=== PATIENT | female | born 1955 | race Caucasian/White ===

== ENCOUNTER → 2018-11-15 07:59 | Outpatient (CLI) | payer BC, SELFPAY ==
[2018-11-15 09:34] LABS: Alanine Aminotransferase 31 IU/L (9-52); Albumin 4.1 g/dL (3.5-5.0); Albumin Globulin Ratio 1.5 (1.0-2.8); Alkaline Phosphatase 110 U/L (38-126); Aspartate Aminotransferase 29 IU/L (14-36); BUN Creatinine Ratio 18.6 (6-22); Bilirubin Total 0.5 mg/dL (0.2-1.3); Blood Urea Nitrogen 13 mg/dL (7-17); Calcium 9.3 mg/dL (8.4-10.2); Carbon Dioxide 28 mmol/L (22-32); Chloride 103 mmol/L (98-107); Cholesterol 164 mg/dL (140-199); Estimated Glomerular Filt Rate > 60.0 mL/min (>60); Globulin 2.7 g/dL (1.7-4.1); Glucose 101 mg/dL (80-110); HEMOLYSIS < 15 (0-50); Potassium 4.2 mmol/L (3.4-5.1); Sodium 139 mmol/L (137-145); Total Protein 6.8 g/dL (6.3-8.2); Triglycerides 36 mg/dL (35-150)
[2018-11-15 09:45] LABS: HDL Cholesterol 128 mg/dL (40-60); LDL Cholesterol Calculated 29 mg/dL (<100)
[2018-11-15 09:50] LABS: Free T3, Triiodothyronine Free 4.51 pg/mL (2.77-5.27)
[2018-11-15 10:03] LABS: Thyroid Stimulating Hormone 1.75 uIU/mL (0.47-4.68)
[2018-11-15 10:09] LABS: Ferritin 37.2 ng/mL (11.1-264)
[2018-11-17 16:11] LABS: Thyroid Peroxidase Antibodies < 1 IU/mL (< 9)
== END ==
PROVIDERS: PCP Naturopath; Visit Provider Naturopath
DX: Z00.00 Encounter for general adult medical examination without abnormal findings (principal); M81.0 Age-related osteoporosis without current pathological fracture; R53.83 Other fatigue
CPT/HCPCS: 36415; 80053; 80061; 82728; 84439; 84443; 84481; 86376

== ENCOUNTER → 2019-11-27 06:51 | Outpatient (CLI) | payer MEDICARE, SELFPAY ==
[2019-11-27 07:40] LABS: Add Manual Diff / Slide Review NO; Basophils Absolute Auto 100 /uL (0-100); Basophils Percent Auto 1.3 % (0-2); Eosinophils Absolute Auto 100 /uL (0-450); Eosinophils Percent Auto 3.1 % (2-4); Hematocrit 41.1 % (36-46); Lymphocytes Absolute Auto 1300 /uL (1100-4500); Lymphocytes Percent Auto 29.7 % (25-40); Mean Corpuscular Hemoglobin 30.7 PG (26-34); Mean Corpuscular Volume 90.3 fL (80-100); Monocytes Absolute Auto 300 /uL (0-900); Monocytes Percent Auto 7.4 % (3-14); Neutrophils Absolute Auto 2500 /uL (1500-7000); Neutrophils Percent Auto 58.5 % (50-75); Platelet Count 238 X10^3/uL (150-400); Red Blood Cell Count 4.55 X10^6/uL (4.0-5.2); Red Cell Distribution Width 13.5 % (11.6-14.8); White Blood Cell Count 4.3 X10^3/uL (4.5-11.0)
[2019-11-27 07:46] LABS: Hemoglobin A1C% w Est Avg Glu 5.4 % (4.0-6.0)
[2019-11-27 07:49] LABS: Alanine Aminotransferase 22 IU/L (<35); Albumin 4.3 g/dL (3.5-5.0); Albumin Globulin Ratio 1.5 (1.0-2.8); Alkaline Phosphatase 92 U/L (38-126); Aspartate Aminotransferase 28 IU/L (14-36); BUN Creatinine Ratio 22.4 (6-22); Bilirubin Total 0.8 mg/dL (0.2-1.3); Blood Urea Nitrogen 13 mg/dL (7-17); Calcium 9.4 mg/dL (8.4-10.2); Carbon Dioxide 27 mmol/L (22-32); Chloride 105 mmol/L (98-107); Cholesterol 154 mg/dL (140-199); Estimated Glomerular Filt Rate > 60.0 mL/min (>60); Globulin 2.9 g/dL (1.7-4.1); Glucose 109 mg/dL (80-110); HEMOLYSIS < 15 (0-50); Potassium 4.5 mmol/L (3.4-5.1); Sodium 138 mmol/L (137-145); Total Protein 7.2 g/dL (6.3-8.2); Triglycerides 52 mg/dL (35-150)
[2019-11-27 07:56] LABS: HDL Cholesterol 110 mg/dL (40-60); LDL Cholesterol Calculated 34 mg/dL (<100)
[2019-11-27 08:19] LABS: TSH w/ Reflex to FT4 1.72 uIU/mL (0.47-4.68)
== END ==
PROVIDERS: PCP Registered Nurse Diabetes Educator; Referring Provider Internal Medicine Cardiovascular Disease; Visit Provider Internal Medicine Cardiovascular Disease
DX: R03.0 Elevated blood-pressure reading, without diagnosis of hypertension (principal); R07.89 Other chest pain; R00.2 Palpitations; Z79.899 Other long term (current) drug therapy
CPT/HCPCS: 36415; 80053; 80061; 83036; 84443; 85025

== ENCOUNTER → 2019-12-26 10:57 | Outpatient (CLI) | payer MEDICARE, SELFPAY ==
[2019-12-27 13:36] LABS: Fecal Immunochemical Test Negative (Negative)
[2020-12-21 06:39] LABS: H. Pylori Antigen Stool Negative (Negative)
== END ==
PROVIDERS: PCP Registered Nurse Diabetes Educator; Referring Provider Registered Nurse Diabetes Educator; Visit Provider Registered Nurse Diabetes Educator
DX: R00.2 Palpitations (principal)
CPT/HCPCS: 82274; 87338

== ENCOUNTER → 2020-01-09 10:12 | Outpatient (CLI) | payer MEDICARE, SELFPAY | PROVIDERS: PCP Registered Nurse Diabetes Educator; Referring Provider Registered Nurse Diabetes Educator; Visit Provider Registered Nurse Diabetes Educator | DX: M81.0 Age-related osteoporosis without current pathological fracture (principal); Z78.0 Asymptomatic menopausal state | CPT/HCPCS: 77080 ==

== ENCOUNTER → 2020-12-08 08:14 | Outpatient (CLI) | payer MEDICARE, SELFPAY ==
--- NOTE | 2020-12-08 08:15 | DI.US.S_ITS ---
PROCEDURE: US ABDOMEN COMPLETE INDICATIONS: EPIGASTRIC PAIN; POSSIBLE HERNIA TECHNIQUE: Real-time scanning was performed of the abdominal and retroperitoneal organs, with image documentation. COMPARISON: None. FINDINGS: Liver: Liver is normal in size and homogeneous in echotexture. Gallbladder: No findings of gallstones or sludge are seen. The gallbladder wall is not thickened, measuring 3 mm or less. No specific pericholecystic fluid is seen. The sonographic Rodriguez sign is negative. Biliary ducts: Intrahepatic bile ducts are non-dilated. Extrahepatic bile duct caliber measures 2-3 mm. Normal is 6-7 mm or less in diameter, or 10 mm or less post-cholecystectomy. Pancreas: Visualized portions of the pancreas are sonographically normal. Spleen: Spleen is normal in size and homogeneous in echotexture. Kidneys: Kidneys are normal in size and echotexture. Right kidney measures 10.2 cm long; left kidney measures 10.5 cm long. No hydronephrosis or nephrolithiasis. No solid masses. Aorta: Visualized aorta is normal in caliber at less than 3 cm. Iliacs: Proximal common iliac arteries are normal in caliber at less than 2.5 cm. IVC: Intrahepatic inferior vena cava is patent. Miscellaneous: No free abdominal fluid. In this patient with this given history, scrutiny is given to the epigastric region. No findings of hernia can be seen within this region. IMPRESSION: Negative for epigastric hernia. Normal ultrasound. Dictated by: Jose Tabares M.D. on 12/08/2020 at 8:19 Approved by: Jose Tabares M.D. on 12/08/2020 at 8:20
[2020-12-08 10:17] LABS: Hematocrit 42.1 % (36-46); Mean Corpuscular HGB Conc 33.2 % (30-36); Mean Corpuscular Hemoglobin 30.1 PG (26-34); Mean Corpuscular Volume 90.9 fL (80-100); Platelet Count 243 X10^3/uL (150-400); Red Blood Cell Count 4.63 X10^6/uL (4.0-5.2); Red Cell Distribution Width 13.4 % (11.6-14.8); White Blood Cell Count 4.9 X10^3/uL (4.5-11.0)
[2020-12-08 11:18] LABS: Alanine Aminotransferase 23 IU/L (<35); Albumin 4.3 g/dL (3.5-5.0); Albumin Globulin Ratio 1.5 (1.0-2.8); Alkaline Phosphatase 104 U/L (38-126); Aspartate Aminotransferase 25 IU/L (14-36); BUN Creatinine Ratio 23.1 (6-22); Bilirubin Total 0.6 mg/dL (0.2-1.3); Blood Urea Nitrogen 12 mg/dL (7-17); Calcium 9.5 mg/dL (8.4-10.2); Carbon Dioxide 28 mmol/L (22-32); Chloride 107 mmol/L (98-107); Estimated Glomerular Filt Rate > 60.0 mL/min (>60); Globulin 2.8 g/dL (1.7-4.1); Glucose 107 mg/dL (80-110); HEMOLYSIS 22 (0-50); Lipase 201 U/L (23-300); Potassium 4.4 mmol/L (3.4-5.1); Sodium 141 mmol/L (137-145); Total Protein 7.1 g/dL (6.3-8.2)
[2020-12-08 12:12] LABS: TSH w/ Reflex to FT4 1.28 uIU/mL (0.47-4.68)
== END ==
PROVIDERS: PCP Registered Nurse Diabetes Educator; Referring Provider Registered Nurse Diabetes Educator; Visit Provider Registered Nurse Diabetes Educator
DX: K21.9 Gastro-esophageal reflux disease without esophagitis (principal); R10.13 Epigastric pain; R14.2 Eructation; R03.0 Elevated blood-pressure reading, without diagnosis of hypertension; R73.01 Impaired fasting glucose
CPT/HCPCS: 36415; 76700; 80053; 83690; 84443; 85027

== ENCOUNTER → 2021-03-16 08:41 | Outpatient (CLI) | payer MEDICARE, SELFPAY ==
[2021-03-17 09:36] LABS: Fecal Immunochemical Test Negative (Negative)
== END ==
PROVIDERS: PCP Registered Nurse Diabetes Educator; Referring Provider Registered Nurse Diabetes Educator; Visit Provider Registered Nurse Diabetes Educator
DX: Z12.11 Encounter for screening for malignant neoplasm of colon (principal); Z12.12 Encounter for screening for malignant neoplasm of rectum
CPT/HCPCS: 82274

== ENCOUNTER → 2021-04-13 10:04 | Outpatient (CLI) | payer MEDICARE, SELFPAY ==
--- NOTE | 2021-04-13 | DI.MG.S_ITS ---
BILATERAL DIGITAL SCREENING MAMMOGRAM 3D/2D WITH CAD: 04/13/2021 CLINICAL: Family history of breast cancer. Routine screening. Comparison is made to exams dated: 12/21/2016 mammogram - [facility] and 02/09/2010 mammogram - [facility] The tissue of both breasts is extremely dense, which lowers the sensitivity of mammography. Current study was also evaluated with a Computer Aided Detection (CAD) system. No significant masses, calcifications, or other findings are seen in either breast. There has been no significant interval change. IMPRESSION: NEGATIVE There is no mammographic evidence of malignancy. A 1 year screening mammogram is recommended. This exam was interpreted at Station ID: [id number]. NOTE: For mammograms, a report in lay terms will be sent to the patient. Approximately 15% of breast malignancies will not be visualized mammographically. In the management of a palpable breast mass, a negative mammogram must not discourage biopsy of a clinically suspicious lesion. Electronically Signed By: Kem hammer/josefa:04/13/2021 11:19:20 letter sent: Normal Exam ACR BI-RADS Category 1: Negative 3341F
== END ==
PROVIDERS: PCP Registered Nurse Diabetes Educator; Referring Provider Registered Nurse Diabetes Educator; Visit Provider Registered Nurse Diabetes Educator
DX: Z12.31 Encounter for screening mammogram for malignant neoplasm of breast (principal); Z80.3 Family history of malignant neoplasm of breast
CPT/HCPCS: 77063; 77067

== ENCOUNTER → 2021-06-15 16:08 | Outpatient (CLI) | payer MEDICARE, SELFPAY ==
--- NOTE | 2021-06-15 | DI.ECHO.S_ITS ---
[facility] +---------+ : : [address] : [place] [address] : : : : [id number] : : : : Phone: [phone] Echocardiogram Report + + :Name: LARRY OLVERA Study Date: 06/15/2021 Height: 64 in : :[facility] ReadingLocation: Weight: 108 lb : : Gender: Female BSA: 1.5 m2 : :: 1955 Age: 65 yrs BP: 157/84 mmHg: :Reason For Study: AORTIC INSUFFICIENCY : :Ordering Physician: KIMBERLY, : :MAXX Performed By: Radha Begum : :Referring: MAXX MCCLOUD : + + Interpretation Summary The left ventricle is normal in size and wall thickness. Left ventricular systolic function appears normal without focal wall motion abnormalities. The ejection fraction is estimated to be 55-60%. Diastolic parameters suggest probable normal left ventricular diastolic function and normal filling pressures. The right ventricle is normal in size and function. The right ventricular systolic pressure is estimated to be at least 32 mmHg based on an estimated right atrial pressure of 3 mm Hg. The left atrial size is normal Right atrial size is normal. There is mild mitral regurgitation. There is mild to moderate aortic regurgitation. There is mild to moderate tricuspid regurgitation. The aortic root is normal size. Procedure: A two-dimensional transthoracic echocardiogram with color flow and Doppler was performed. The study quality was technically adequate. There is no prior echocardiogram noted for this patient. The patient was in sinus rhythm with heart rates between 76-80 bpm during the exam. Left Ventricle: The left ventricle is normal in size and wall thickness. Left ventricular systolic function appears normal without focal wall motion abnormalities. The ejection fraction is estimated to be 55-60%. Diastolic parameters suggest probable normal left ventricular diastolic function and normal filling pressures. Right Ventricle: The right ventricle is normal in size and function. Atria: The left atrial size is normal. Right atrial size is normal. There is no Doppler evidence for an interatrial shunt. Mitral Valve: The mitral valve is normal in structure and function. There is mild mitral regurgitation. Aortic Valve: The aortic valve is trileaflet. The aortic valve opens well. There is no aortic valve stenosis. There is mild to moderate aortic regurgitation. Tricuspid Valve: The tricuspid valve is normal in structure and function. There is mild to moderate tricuspid regurgitation. The right ventricular systolic pressure is estimated to be at least 32 mmHg based on an estimated right atrial pressure of 3 mm Hg. Pulmonic Valve: The pulmonic valve is not well seen, but is grossly normal. There is trace pulmonic regurgitation. Great Vessels: The aortic root is normal size. The ascending aorta could not be visualized. The IVC is of normal diameter and collapses greater than 50% with a sniff. This suggests a low right atrial pressure of 3 mm Hg. Pericardium/ Pleura There is no pericardial effusion. There is no pleural effusion. MMode/2D Measurements & Calculations LVIDd: 3.7 cm LVOT diam: 2.0 cm LVIDs: 2.6 cm Ao Arch Diam (Prox Trans): 2.1 cm FS: 31.0 % IVSd: 0.59 cm LVPWd: 0.73 cm LV izaguirre. diameter/BSA (cm/m^2): 2.5 LV sys. diameter/BSA (cm/m^2): 1.7 LA A2 area: 16.5 cm2 RA area: 9.1 cm2 LA A4 area: 12.7 cm2 IVC diam: 1.1 cm LA length (vol): 3.9 cm LA vol: 45.1 ml LA vol index: 29.9 ml/m2 RVD1 (basal): 2.9 cm TAPSE: 2.2 cm Doppler Measurements & Calculations Ao V2 max: 133.2 cm/sec LVOT Max Calvin: 94.9 cm/sec Ao V2 mean: 89.7 cm/sec LV V1 max P.6 mmHg Ao max P.1 mmHg LV V1 VTI: 21.3 cm Ao mean P.6 mmHg DAMIÁN(I,D): 2.2 cm2 Ao V2 VTI: 29.7 cm DAMIÁN(V,D): 2.2 cm2 sev ratio: 0.72 DAMIÁN indexed to BSA (cm^2/m^2): 1.5 AI P1/2t: 476.5 msec AI dec slope: 302.0 cm/sec2 MV E max calvin: 94.7 cm/sec TR max calvin: 270.7 cm/sec MV A max calvin: 96.1 cm/sec TR max P.3 mmHg MV E/A: 0.99 PA V2 max: 111.2 cm/sec Med Peak E' Calvin: 7.0 cm/sec PA V2 mean: 76.8 cm/sec E/E' med: 13.4 PA mean P.6 mmHg Lat Peak E' Calvin: 7.8 cm/sec PA pr(Accel): 12.2 mmHg E/E' lat: 12.1 E/e' average: 12.8 MV dec time: 0.23 sec SV(OT): 66.6 ml Reading Physician:07:12 AM
== END ==
PROVIDERS: PCP Registered Nurse Diabetes Educator; Referring Provider Internal Medicine Cardiovascular Disease; Visit Provider Internal Medicine Cardiovascular Disease
DX: I08.3 Combined rheumatic disorders of mitral, aortic and tricuspid valves (principal)
CPT/HCPCS: 93306

== ENCOUNTER 2022-02-04 09:48 | Emergency (ER) | payer MEDICARE, SELFPAY ==
[2022-02-04 10:08] VITALS: BP 177/84; PULSE 89; RESP 14; TEMP 36.7; O2SAT 98; BMI 18.3
--- NOTE | 2022-02-04 12:38 | ED_ITS ---
HPI - Skin/Abscess/Foreign Bdy <Yasir Raines PA-C - Last Filed: 02/04/22 20:12> General Chief complaint: Skin/Abscess/Foreign Body Stated complaint: Lump on right breast Time Seen by Provider: 02/04/22 12:05 Source: patient Mode of arrival: Ambulatory Limitations: no limitations History of Present Illness HPI narrative: Patient is 66-year-old female who presents to the emergency room today with complaint of right breast lump that she noticed last night. States her last mammogram was about a year ago in April and that she is not noticed this lump before. This breast are very small and she does palpate for labs routinely and has not noticed this lump until last night. States the lump is not painful to touch and there is no abnormal drainage from the breast. Patient reported to the walk-in clinic today to have this checked acutely because she is scheduled to travel to [facility] tomorrow. Past plan to see her dough mixer robot provider when she returns home want to rule out anything emergent before she travels of the country. Taken no hormone replacement medications at this time and has been in menopause for about 14 years. Denies any other concerns. Related Data Home Medications Medication Instructions Recorded Confirmed brinzolamide 1 %-brimonidine 0.2 % 1 drop EYE-BOTH BID 11/14/19 02/04/22 eye drops,suspension (Simbrinza) travoprost 0.004 % eye drops EYE-BOTH ##0 12/03/20 02/04/22 (Travatan Z) Allergies Allergy/AdvReac Type Severity Reaction Status Date / Time No Known Drug Allergies Allergy Verified 02/04/22 10:08 Review of Systems <Yasir Raines PA-C - Last Filed: 02/04/22 20:12> Review of Systems Narrative: R.O.S.: General: No fever, chills or fatigue. Cardiovascular: No chest pain or palpitations Respiratory: No S.O.B. HEENT: No congestion, ear pain, rhinorrhea, sore throat or tinnitus Gastrointestinal: No nausea or vomiting Skin: Lump to right breast Musculoskeletal: No pain in muscles or joints, no limitation of range of motion, no paresthesia or numbness. ?? Neurological: Awake, alert and in not apparent distress. No Headaches, changes in vision or other related neurological concerns. Patient History <Yasir Raines PA-C - Last Filed: 02/04/22 20:12> Medical History Chicken pox (~1958) Glaucoma (~2004) Impaired fasting blood sugar Intermittent palpitations Kidney stones (~1996) Nonrheumatic aortic (valve) insufficiency Osteoporosis (~2005) Scoliosis Family History Father Stroke Mother Cancer Sister Hypertension Grandfather History of heart disease Social History Smoking Status: Never smoker second hand exposure: Yes ( CHILD) alcohol intake: current substance use type: does not use Smoking Status: Never smoker alcohol intake frequency: 0-2 drinks per day Substance Use Type: does not use Exam <Yasir Raines PA-C - Last Filed: 02/04/22 20:12> Narrative Exam Narrative: Physical Exam: ? General: normal appearance, well developed, well nourished, alert, and awake. Not in acute distress. ? Head: Normocephalic, no lesions. Chest: Lungs CTAB, no rales, rhonchi or wheezes. ?? Heart: RRR, no murmurs, rubs or gallops. Eyes: PERRLA, EOM's full, conjunctivae clear. ? Neuro: Physiological, no localizing findings, CN3-12 intact. ?? Extremities: Warm, well perfused, FROM, no deformities, no edema. ?? Skin/Right Breast: Patient has a palpable freely movable solid mass to the right breast mass is located medial of the right nipple in the lower to mid breast area. The mass is nontender to palpation the area is nonerythematous and without swelling or drainage. The actual size of the breast is symmetrical to the left breast. PSYCHIATRIC: The mood is good, no blunted affect. Speech is clear. Thought process is linear, thought content is appropriate. The voice is without significant inflection. Gastrointestinal: Soft; NT; ND; Pos BS with Neg. rebound tenderness. No scars or major deformities noted on Visual Inspection. Initial Vital Signs Initial Vital Signs: Vital Signs Temperature 98.1 F 02/04/22 10:08 Pulse Rate 89 02/04/22 10:08 Respiratory Rate 14 02/04/22 10:08 Blood Pressure 177/84 H 02/04/22 10:08 Pulse Oximetry 98 02/04/22 10:08 Oxygen Delivery Method 02/04/22 10:08 <DO Livier Avitia Last Filed: 02/05/22 13:28> Initial Vital Signs Initial Vital Signs: Vital Signs Temperature 98.1 F 02/04/22 10:08 Pulse Rate 89 02/04/22 10:08 Respiratory Rate 14 02/04/22 10:08 Blood Pressure 177/84 H 02/04/22 10:08 Pulse Oximetry 98 02/04/22 10:08 Oxygen Delivery Method 02/04/22 10:08 Course <Yasir Raines PA-C - Last Filed: 02/04/22 20:12> Orders Ordered: ED Orders 02/04/22 12:42 US breast RT limited Stat Vital Signs Vital signs: Vital Signs - 8 hr 02/04/22 14:43 Pulse Rate 66 Respiratory Rate 12 Blood Pressure 136/78 Pulse Oximetry 98 Oxygen Delivery Method Room Air <DO Livier Avitia Last Filed: 02/05/22 13:28> Orders Ordered: ED Orders 02/04/22 12:42 US breast RT limited Stat Vital Signs Vital signs: Vital Signs - 8 hr 02/04/22 14:43 Pulse Rate 66 Respiratory Rate 12 Blood Pressure 136/78 Pulse Oximetry 98 Oxygen Delivery Method Room Air MDM - Skin/Abscess/Foreign Bdy <KRISTEN Mayen Last Filed: 02/04/22 20:12> Imaging Data US Right Breast: Radiologist's Impression: LIMITED ULTRASOUND OF RIGHT BREAST AND AXILLA: 02/04/2022 CLINICAL: Palpable right breast lump.? ? Comparison is made to exams dated:? 04/13/2021 mammogram, 12/21/2016 mammogram - [facility], and 02/09/2010 mammogram - [facility].? Color flow and real-time ultrasound of the right breast 2 o'clock, and axilla regions were performed.? Corey scale images of the real-time examination were reviewed.? ? There is a 1.2 cm taller than wide, irregular, hypoechoic, shadowing, solid mass with angular margins in the right breast at 2 o'clock middle depth 5 cm from the nipple. Right axillary lymph nodes are not suspicious. IMPRESSION: SUSPICIOUS OF MALIGNANCY Suspicious right breast mass. An ultrasound guided biopsy is recommended. ? Future imaging is recommended as follows: 04/14/2022 screening mammogram.? ? ? This exam was interpreted at Station ID: [id number].? Electronically Signed By: Kvng Toscano M.D.? jr/:02/04/2022 13:54:28? ? ? letter sent: Biopsy Required? Ultrasound BI-RADS: 4 Suspicious for malignancy MDM Narrative Medical decision making narrative: Patient is 66-year-old female who presents to the emergency room today with complaint of a right breast mass. Since she noticed the mass this morning in the shower. Has never had this type of mass before and had missed her last mammogram was in April last year. Patient was initially seen at the walk-in clinic was advised to come here for an ultrasound. Ultrasound here was done primarily to rule out any acute abscess or other acute malformation at this time ultrasound was done and revealed a 1.2 cm solid mass with angular margins that are suspicious of malignancy. This was discussed with the patient and patient agrees to follow-up the primary care provider for referral to dough mixer for further workup. Patient agrees with this plan Discharge Plan Departure Patient Disposition: Home Clinical Impression: Breast lump Instructions: DI for Breast Mass -- Uncertain Cause Activity Restrictions/Additional Instructions: *You have been diagnosed with an irregularly-shaped solid mass to your right breast. The ultrasound and physical exam confirmed the mass. I suggest you follow-up with your primary care provider in regards to an additional referral to dough mixer or surgery. I also suggest you return to the emergency room should any emergent concerns arise as in and enlargement or pain in the breast; drainage from the breast; erythema around mass area or chest pain or shortness of breath. *What to do: *Please continue to take your regular medications as directed. [ ] New medication prescriptions sent to your pharmacy: [ ] [x] New medication written as a paper prescription [ ] No new medications given *Please follow up with your primary care provider in 2-3 days, call for an appointment. Let them know you were seen in the Emergency Department and that we ask that you be seen in follow up. We will electronically transmit a record of today's note if your PCP is in our system *If you do not have a primary care provider please contact the [facility] Resource line at [phone]. They will ask some questions about your medical history and help get you set up with a doctor in the community. *Return to Emergency Department if you should have any new, worsening or concerning symptoms, such as [fever greater than 101 F, shaking chills, worsening pain, persistent vomiting or other bothersome symptoms] Prescriptions: No Action travoprost [Travatan Z] 0.004 % drops EYE-BOTH Qty: 0 Rx Instructions: one drop both eyes daily Simbrinza 1-0.2 % drops,suspension 1 drop EYE-BOTH BID Referrals: Nick Hill ARNP [Primary Care Provider] - Visit Report Forms: Patient Portal/API <Jose Amanda DO - Last Filed: 02/05/22 13:28> Cosign ED Attending Cosignature Attestation: Dr Amanda Co-Sign Statement: I was available for consultation during this patient's emergency department visit. This chart is signed by myself for administrative purposes only. I did not have direct contact with this patient during this visit. They were seen independently by the APC.
--- NOTE | 2022-02-04 12:42 | DI.US.S_ITS ---
LIMITED ULTRASOUND OF RIGHT BREAST AND AXILLA: 02/04/2022 CLINICAL: Palpable right breast lump. Comparison is made to exams dated: 04/13/2021 mammogram, 12/21/2016 mammogram - [facility], and 02/09/2010 mammogram - [facility]. Color flow and real-time ultrasound of the right breast 2 o'clock, and axilla regions were performed. Corey scale images of the real-time examination were reviewed. There is a 1.2 cm taller than wide, irregular, hypoechoic, shadowing, solid mass with angular margins in the right breast at 2 o'clock middle depth 5 cm from the nipple. Right axillary lymph nodes are not suspicious. IMPRESSION: SUSPICIOUS OF MALIGNANCY Suspicious right breast mass. An ultrasound guided biopsy is recommended. Future imaging is recommended as follows: 04/14/2022 screening mammogram. This exam was interpreted at Station ID: [id number]. Electronically Signed By: Kvng Toscano M.D. jr/:02/04/2022 13:54:28 letter sent: Biopsy Required Ultrasound BI-RADS: 4 Suspicious for malignancy
--- NOTE | 2022-02-04 13:57 | PC.NURSE ---
lump noted last night to right breast. Denies pain, abnormal discharge.
[2022-02-04 14:43] VITALS: BP 136/78; PULSE 66; RESP 12; O2SAT 98
== END 2022-02-04 14:43 | disposition home or self-care (01) ==
PROVIDERS: Emergency Provider Physician Assistant; PCP Registered Nurse Diabetes Educator
DX: N63.0 Unspecified lump in unspecified breast (principal)
CPT/HCPCS: 76642; 99283

== ENCOUNTER → 2022-02-17 11:58 | Outpatient (CLI) | payer MEDICARE, SELFPAY ==
--- NOTE | 2022-02-17 | DI.MG.S_ITS ---
BILATERAL DIGITAL DIAGNOSTIC MAMMOGRAM 3D/2D: 02/17/2022 CLINICAL: Right breast lump. Comparison is made to exams dated: 02/04/2022 ultrasound, 04/13/2021 mammogram, and 12/21/2016 mammogram - [facility]. Both breasts are extremely dense, which lowers the sensitivity of mammography (category d />75% glandular tissue). There is a new irregular architectural distortion in the right breast at 2 o'clock middle depth. This correlates as palpated, with recent suspicious ultrasound findings, and area of clinical concern. No other significant masses, calcifications, or other findings are seen in either breast. IMPRESSION: HIGHLY SUGGESTIVE OF MALIGNANCY The new irregular architectural distortion correlates with recently described suspicious mass in the right breast at 2 o'clock 5cm from the nipple. This is highly suggestive of malignancy. An ultrasound guided biopsy was already recommended and this examination was performed to complete her imaging workup. Biopsy recommendations were again conveyed to the patient. Based on Tyrer-Cuzick model (a risk assessment model), the patient's lifetime risk is 29.3% and her 10 year risk is 16.4%. If a patient has an elevated risk, a more comprehensive evaluation should be considered and/or a referral to a genetic counselor. The [place] [employer], [place] [employer], and NCCN Guidelines advise the consideration of Breast MRI as an adjunct to screening mammography in patients whose Lifetime risk to develop breast cancer is 20% or higher. This exam was interpreted at Station ID: [id number]. NOTE: For mammograms, a report in lay terms will be sent to the patient. Approximately 15% of breast malignancies will not be visualized mammographically. In the management of a palpable breast mass, a negative mammogram must not discourage biopsy of a clinically suspicious lesion. Electronically Signed By: Tarik Villavicencio M.D. aty/:02/17/2022 13:13:49 letter sent: Biopsy Required ACR BI-RADS Category 5: Highly suggestive of malignancy 3345F
== END ==
PROVIDERS: PCP Registered Nurse Diabetes Educator; Referring Provider Registered Nurse; Visit Provider Registered Nurse
DX: R92.8 Other abnormal and inconclusive findings on diagnostic imaging of breast (principal); N64.4 Mastodynia; N63.11 Unspecified lump in the right breast, upper outer quadrant
CPT/HCPCS: 77066; G0279

== ENCOUNTER → 2022-05-18 13:47 | Outpatient (CLI) | payer MEDICARE, SELFPAY ==
--- NOTE | 2022-05-18 13:49 | DI.RAD.S_ITS ---
PROCEDURE: XR LUMBAR SPINE 2-3V INDICATIONS: Left lower back pain TECHNIQUE: 3 views of the lumbar spine were acquired. COMPARISON: None. FINDINGS: Bones: 5 [id number] vertebrae are present. There is normal bony alignment. No vertebral body compression fractures. No suspicious bony lesions. Convex left thoracolumbar scoliosis present. No vertebral anomalies. Disc space narrowing and sclerotic facet joints throughout the exam. Generalized decrease in osseous mineralization noted. Soft tissues: Overlying bowel gas pattern is normal. No suspicious soft tissue calcifications. IMPRESSION: Osteopenic thoracolumbar dextroscoliosis and associated degenerative disc disease with arthropathy. Approved by: Tyron Ro M.D. on 05/18/2022 at 14:18
== END ==
PROVIDERS: PCP Registered Nurse Diabetes Educator; Referring Provider Registered Nurse; Visit Provider Registered Nurse
DX: M51.36 Other intervertebral disc degeneration, lumbar region (principal); M47.816 Spondylosis without myelopathy or radiculopathy, lumbar region; M41.9 Scoliosis, unspecified; M54.50 Low back pain, unspecified; M79.605 Pain in left leg
CPT/HCPCS: 72100

== ENCOUNTER → 2022-11-02 09:20 | Outpatient (CLI) | payer MEDICARE, SELFPAY ==
[2022-11-02 11:05] LABS: BUN Creatinine Ratio 18.8 (6-22); Blood Urea Nitrogen 12 mg/dL (7-17); Carbon Dioxide 28 mmol/L (22-32); Chloride 102 mmol/L (98-107); Estimated Glomerular Filt Rate > 60 mL/min (>60); Glucose 117 mg/dL (80-110); HEMOLYSIS < 15 (0-50); Sodium 136 mmol/L (137-145)
[2022-11-02 11:10] LABS: Free T4, Direct Thyroxine 1.08 ng/dL (0.78-2.19)
[2022-11-02 11:12] LABS: Vitamin D 25 Hydroxy (D3) 50.9 ng/mL (30.0-100.0)
[2022-11-02 11:24] LABS: Thyroid Stimulating Hormone 0.855 uIU/mL (0.47-4.68)
[2022-11-04 08:09] LABS: Parathyroid Hormone Int 45 pg/mL (15-65)
== END ==
PROVIDERS: Family Provider Registered Nurse Diabetes Educator; PCP Registered Nurse Diabetes Educator; Referring Provider Internal Medicine Endocrinology, Diabetes & Metabolism; Visit Provider Internal Medicine Endocrinology, Diabetes & Metabolism
DX: M81.8 Other osteoporosis without current pathological fracture (principal); I35.1 Nonrheumatic aortic (valve) insufficiency; I10 Essential (primary) hypertension
CPT/HCPCS: 36415; 80048; 82306; 83970; 84439; 84443

== ENCOUNTER 2022-11-09 13:00 | Outpatient (RCR) | payer MEDICARE, SELFPAY ==
--- NOTE | 2022-06-29 17:55 | PT.OIE ---
Current Diagnoses Other forms of scoliosis, thoracolumbar region (06/29/22) Sacroiliitis, not elsewhere classified (06/29/22) Past Medical History (Last Reviewed 05/18/22 @ 13:44 by YESENIA Dugan) Adenocarcinoma of right breast Adjustment insomnia Breast mass, right Chicken pox (~1958) Glaucoma (~2004) Impaired fasting blood sugar Intermittent palpitations Kidney stones (~1996) Nonrheumatic aortic (valve) insufficiency Osteoporosis (~2005) Scoliosis Visit Care Team Role Provider Type YESENIA Ridley Attending Provider Advanced Dye Colorist Formulator Family Provider Primary Care Provider Referring Provider Specialty: Medical Address: [address] [place] [address], [facility] Email: [email or web address] Physical Therapy Initial Evaluation PT-OP-A Visit Information Start: 06/29/22 09:46 Freq: Status: Active Protocol: Document 06/29/22 09:45 [facility] (Rec: 06/29/22 10:39 [facility] [id number]) Out-Patient Physical Therapy Visit Information Visit Information Visit Type Initial Evaluation Visit Start Time 09:46 Visit Stop Time 10:30 Total Visit Minutes 44 Visit Number 1 Evaluation Information Evaluation Date 06/29/22 PT-OP-B Current Condition Start: 06/29/22 09:46 Freq: Status: Active Protocol: Document 06/29/22 09:45 [facility] (Rec: 06/29/22 10:39 [facility] [id number]) Current Condition History of Current Condition Onset Date pain began then end of January/ beginning of February Current Complaints left sided lower back pain and SI pain with intermittent sciatic symptoms History of Current Condition lower left side back pain and SI pain, she describes sciatic pain down the leg She describes her pain as constant and nagging and wakes her up. She has a history of scoliosis and osteoporosis She was diagnosed with breast Cancer in february and then had a right mastectomy on the right in march. She is on a aromatose inhibitor due to her cancer, there was too many side effects so she was taken off and put on tomoxifin. She hasn't been back to her exercises due to the cancer treatment. She feel nausea and intestinal digestive things going on. Mornings are the worst but she does try to get out and walk the dog a couple of miles. She tries to do a little bit of stretching exercises. She has been doing pilates for a long time She also notes urinary urgency that is new since her pain progressed. Prior Treatments and Tests x-ray shows DDD along with thoracolumbar dextro scoliosis Current Functional Impairments (Reported) Functional Limitations- ADL's because of her pain she las less than 6 hours of sleep Functional Limitations- Mobility/Gait pain prevents pt from sitting more than one hour pain is increased with standing PT-OP-C Subjective Start: 06/29/22 09:46 Freq: Status: Active Protocol: Document 06/29/22 09:45 [facility] (Rec: 06/30/22 17:33 [facility] [id number]) Patient Questionnaires Oswestry Low Back Index Oswestry Score 11 Oswestry Impairment 1 to 19% Impaired (Score 1-19) OP-PT Pain Assessment Location sacral pain Intensity 4 Scale Used Numeric (0 - 10) Description- Other intensity 4-5 L SI joint Pain Location Details L SI joint pain Intensity 6 Scale Used Numeric (0 - 10) Description- Other intensity from 6-8 PT-OP-F Manual Assessment Start: 06/29/22 09:46 Freq: Status: Active Protocol: Document 06/29/22 09:45 [facility] (Rec: 06/29/22 14:14 [facility] [id number]) Manual Assessments Soft Tissue Assessment Soft Tissue Mobility Assessment adductor guarding and tightness L>R, iliopsoas tightness with + yoanna test on the left, piriformis tightness L>R Right paraspinal guarding and tightness with scoliosis PT-OP-J Posture/Palpation/Skin Start: 06/29/22 09:46 Freq: Status: Active Protocol: Document 06/29/22 09:45 [facility] (Rec: 06/29/22 14:04 [facility] [id number]) Posture Evaluation Comments Posture Comments pt presents with scoliosis with curvature to the right Palpation Assessment Location left SI joint Palpation Findings Tenderness left sacral ANJELICA Palpation Findings Tenderness Palpation Details sacrum is rotated left with more prominance along the left ANJELICA left piriformis Palpation Findings Soft Tissue Tightness,Spasm, Muscle Guarding,Tenderness PT-OP-L Special Tests Start: 06/29/22 09:46 Freq: Status: Active Protocol: Document 06/29/22 09:45 [facility] (Rec: 06/29/22 14:14 [facility] [id number]) Special Tests Other Special Tests Special Tests + ASLR test on the left for SI instabilty + standing marching test on the left for SI instability left leg is longer in supine than right leg PT-OP-Q Treatments Start: 06/29/22 09:46 Freq: Status: Active Protocol: Document 06/29/22 09:45 [facility] (Rec: 06/29/22 14:03 [facility] [id number]) Therapeutic Exercises Supine Exercises piriformis stretch Reps/Minutes hold 1-2 min single knee to chest stretch Reps/Minutes hold 1 -2 min Self-Care/Home Management Treatment Education Patient Education Home Exercise Program,Pain Management Other Education Johanna was educated on using miracle balls for her gluteal tightness and pain PT-OP-T Assessment and Plan Start: 06/29/22 09:46 Freq: Status: Active Protocol: Document 06/29/22 09:45 [facility] (Rec: 06/30/22 17:37 [facility] [id number]) Physical Therapy Assessment Rehab Potential Rehabilitation Potential Good Evaluation Complexity Number of Personal Factors/Comorbidities 0 Number of Body Systems Impaired 1-2 Clinical Presentation at Evaluation Stable Impairments Impairments Activity Tolerance,ROM,Soft Tissue Mobility,Strength Goals 3 Impairment pt is unable to lay on her left side at night due to L SI pain Document Improvement Specialist Goal (LTG) pt reports she is able to lay on her left side without a increase in pain LTG Duration 12 weeks 2 Impairment Left sided piriformis, adductor, and iliopsoas tightness and guarding Short Term Goal (STG) Pt is educated in a home flexibility routine that she tolerates well for home STG Duration 5 weeks Care Home Goal (LTG) Pt presents with improved hip ER, hip Extension, and hip abduction along with improved mobility of the muscle tissue with reduced guarding 1 Impairment L SI pain rated 6-8/10 limiting sitting and standing tolerance and limits sleep Document Improvement Specialist Goal (LTG) Pt reports a overall reduction in pain levels from the left SI to 2-3/10 or better LTG Duration 12 weeks Assessment Summary Assessment Johanna is a 66 year old female who presents to physical therapy with left sided SI and and low back pain . She describes intermittent sciatic pain down the left leg . Pain began the end of January, early February. Before this Lawrence was diagnosed with breast cancer and underwent a Right masetectomy in March She also notes getting covid in the fall. Her usual exercise routine and walking was minimzed due to this. Johanna has a history of scoliosis (dextro) with curvature to the right as well as osteoporosis. With examination today there is tenderness to palpation at the left PSIS. Pt has tightness left greater than right piriformis, adductors, and iliopsoas. She does present with a sacral rotation to the left. Johanna was instructed in gentle stretches today for the piriformis and iliopsoas. She will benefit from a gentle ROM and stretching routine and then progressing to core stabilization. Johanna notes she recently started noticing some urinary incontinence so pelvic floor stabilization will also be included and should help as well with SI stabilization. Johanna is a good candidate for PT Physical Therapy Plan Frequency and Duration Frequency of Treatment 1x/Week Duration of treatment (weeks) 12 Plan of Care Start Date 06/29/22 Plan of Care End Date 09/21/22 Therapeutic Interventions Therapeutic Interventions Home Exercise Program,Manual Therapy,Patient/Caregiver Education,Self-Care/Home Management,Soft Tissue Mobilization,Therapeutic Exercises Next Visit Focus/Plan Next Note Type Treatment Note Next Visit Plan Review stretches taught today, add in adductor stretching, manual therapy work to release the adductors and piriformis.
--- NOTE | 2022-06-29 17:56 | PT.OPPOC ---
Physical, Occupational & Speech Therapy At [facility] Current Diagnoses Other forms of scoliosis, thoracolumbar region (06/29/22) Sacroiliitis, not elsewhere classified (06/29/22) Visit Care Team Role Provider Type YESENIA Ridley Attending Provider Advanced Reading Coach Family Provider Primary Care Provider Referring Provider Specialty: Medical Address: [address] [place] [address], [facility] Email: [email or web address] Plan Of Care PT-OP-T Assessment and Plan Start: 06/29/22 09:46 Freq: Status: Active Protocol: Document 06/29/22 09:45 [facility] (Rec: 06/30/22 17:37 [facility] [id number]) Physical Therapy Assessment Rehab Potential Rehabilitation Potential Good Evaluation Complexity Number of Personal Factors/Comorbidities 0 Number of Body Systems Impaired 1-2 Clinical Presentation at Evaluation Stable Impairments Impairments Activity Tolerance,ROM,Soft Tissue Mobility,Strength Goals 3 Impairment pt is unable to lay on her left side at night due to L SI pain Carnallite Plant Operator Goal (LTG) pt reports she is able to lay on her left side without a increase in pain LTG Duration 12 weeks 2 Impairment Left sided piriformis, adductor, and iliopsoas tightness and guarding Short Term Goal (STG) Pt is educated in a home flexibility routine that she tolerates well for home STG Duration 5 weeks Nursing Home Goal (LTG) Pt presents with improved hip ER, hip Extension, and hip abduction along with improved mobility of the muscle tissue with reduced guarding 1 Impairment L SI pain rated 6-8/10 limiting sitting and standing tolerance and limits sleep Nursing Home Goal (LTG) Pt reports a overall reduction in pain levels from the left SI to 2-3/10 or better LTG Duration 12 weeks Assessment Summary Assessment Johanna is a 66 year old female who presents to physical therapy with left sided SI and and low back pain . She describes intermittent sciatic pain down the left leg . Pain began the end of January, early February. Before this Lawrence was diagnosed with breast cancer and underwent a Right mastectomy in March She also notes getting covid in the fall. Her usual exercise routine and walking was minimized due to this. Johanna has a history of scoliosis (dextro) with curvature to the right as well as osteoporosis. With examination today there is tenderness to palpation at the left PSIS. Pt has tightness left greater than right piriformis, adductors, and iliopsoas. She does present with a sacral rotation to the left. Johanna was instructed in gentle stretches today for the piriformis and iliopsoas. She will benefit from a gentle ROM and stretching routine and then progressing to core stabilization. Johanna notes she recently started noticing some urinary incontinence so pelvic floor stabilization will also be included and should help as well with SI stabilization. Johanna is a good candidate for PT Physical Therapy Plan Frequency and Duration Frequency of Treatment 1x/Week Duration of treatment (weeks) 12 Plan of Care Start Date 06/29/22 Plan of Care End Date 09/21/22 Therapeutic Interventions Therapeutic Interventions Home Exercise Program,Manual Therapy,Patient/Caregiver Education,Self-Care/Home Management,Soft Tissue Mobilization,Therapeutic Exercises Next Visit Focus/Plan Next Note Type Treatment Note Next Visit Plan Review stretches taught today, add in adductor stretching, manual therapy work to release the adductors and piriformis. Plan of Care Dates Plan of Care Start Date 06/29/22 Plan of Care End Date 09/21/22 Electronically Signed by: Ana Maloney, PT 06/30/22 1715 If you are in agreement with this Plan of Care, please return a signed and dated copy. I have reviewed this Plan of Care and certify that the skilled therapy services above are required to meet the patient?s needs. Physician Signature Date Printed Name and Credentials Clinical Instructor Signature Printed Name and Credentials
--- NOTE | 2022-07-05 18:08 | PT.OTN ---
Current Diagnoses Other forms of scoliosis, thoracolumbar region (07/05/22) Sacroiliitis, not elsewhere classified (07/05/22) Physical Therapy Treatment Note PT-OP-A Visit Information Start: 06/29/22 09:46 Freq: Status: Active Protocol: Document 07/05/22 13:50 [facility] (Rec: 07/05/22 14:33 [facility] [id number]) Out-Patient Physical Therapy Visit Information Visit Information Visit Type Treatment Note Visit Start Time 13:50 Visit Stop Time 14:35 Total Visit Minutes 45 Visit Number 2 Evaluation Information Evaluation Date 06/29/22 PT-OP-B Current Condition Start: 06/29/22 09:46 Freq: Status: Active Protocol: Document 06/29/22 09:45 [facility] (Rec: 06/29/22 10:39 [facility] [id number]) Current Condition History of Current Condition Onset Date pain began then end of January/ beginning of February Current Complaints left sided lower back pain and SI pain with intermittent sciatic symptoms History of Current Condition lower left side back pain and SI pain, she describes sciatic pain down the leg She describes her pain as constant and nagging and wakes her up. She has a history of scoliosis and osteoporosis She was diagnosed with breast Cancer in february and then had a right mastectomy on the right in march. She is on a aromatose inhibitor due to her cancer, there was too many side effects so she was taken off and put on tomoxifin. She hasn't been back to her exercises due to the cancer treatment. She feel nausea and intestinal digestive things going on. Mornings are the worst but she does try to get out and walk the dog a couple of miles. She tries to do a little bit of stretching exercises. She has been doing pilates for a long time She also notes urinary urgency that is new since her pain progressed. Prior Treatments and Tests x-ray shows DDD along with thoracolumbar dextro scoliosis Current Functional Impairments (Reported) Functional Limitations- ADL's because of her pain she las less than 6 hours of sleep Functional Limitations- Mobility/Gait pain prevents pt from sitting more than one hour pain is increased with standing PT-OP-C Subjective Start: 06/29/22 09:46 Freq: Status: Active Protocol: Document 07/05/22 13:50 [facility] (Rec: 07/05/22 14:33 [facility] [id number]) OP-PT Subjective Patient Comments Patient Comments pt reports the mornings are really bad and the worst for her right now, as the day progresses she feels better. She is walking the dog 2 miles per day. She did get the miracle balls for self release and has been trying to use them Patient Reported Progress Same PT-OP-F Manual Assessment Start: 06/29/22 09:46 Freq: Status: Active Protocol: Document 06/29/22 09:45 [facility] (Rec: 06/29/22 14:14 [facility] [id number]) Manual Assessments Soft Tissue Assessment Soft Tissue Mobility Assessment adductor guarding and tightness L>R, iliopsoas tightness with + yoanna test on the left, piriformis tightness L>R Right paraspinal guarding and tightness with scoliosis PT-OP-J Posture/Palpation/Skin Start: 06/29/22 09:46 Freq: Status: Active Protocol: Document 06/29/22 09:45 [facility] (Rec: 06/29/22 14:04 [facility] [id number]) Posture Evaluation Comments Posture Comments pt presents with scoliosis with curvature to the right Palpation Assessment Location left SI joint Palpation Findings Tenderness left sacral ANJELICA Palpation Findings Tenderness Palpation Details sacrum is rotated left with more prominance along the left ANJELICA left piriformis Palpation Findings Soft Tissue Tightness,Spasm, Muscle Guarding,Tenderness PT-OP-L Special Tests Start: 06/29/22 09:46 Freq: Status: Active Protocol: Document 06/29/22 09:45 [facility] (Rec: 06/29/22 14:14 [facility] [id number]) Special Tests Other Special Tests Special Tests + ASLR test on the left for SI instabilty + standing marching test on the left for SI instability left leg is longer in supine than right leg PT-OP-Q Treatments Start: 06/29/22 09:46 Freq: Status: Active Protocol: Document 07/05/22 13:50 [facility] (Rec: 07/05/22 14:33 [facility] [id number]) Therapeutic Exercises Supine Exercises piriformis stretch Reps/Minutes hold 1-2 min Sitting Exercises long sitting adductor stretch Reps/Minutes hold 1-2 Other Exercises cat cow Reps/Minutes x 10 reps wag the tail Reps/Minutes x 10 reps Comments worked on turning to the right side primarily for scoliosis hands and knees thread the needle Reps/Minutes x 10 reps Comments pt to primarily work the left side for scoliosis Manual Therapy Treatment Soft Tissue Mobilization piriformis release Body Location left piriformis release Mobilization Type Myofascial Release Intensity/Depth Moderate Body Position Prone Comments prone over body pillow, pt tolerated well and could feel a good release Manual Techniques manual prone hip ER stretch Comments good tolerance manual quad stretch Comments in prone over the body pillow PT-OP-T Assessment and Plan Start: 06/29/22 09:46 Freq: Status: Active Protocol: Document 07/05/22 13:50 [facility] (Rec: 07/05/22 18:08 [facility] [id number]) Physical Therapy Assessment Assessment Summary Assessment Johanna tolerated the addition of quadruped back stretches, I began work in prone over the body pillow for piriformis release on the left. Her quads and piriformis were then stretched in prone which she noted she could feel a good release in her sacral area afterwards. Due to scoliosis the right paraspinals are much more tight and this may also pull on the sacrum. Pt did not have any additional visits scheduled so was put on the wait list today. Physical Therapy Plan Frequency and Duration Frequency of Treatment 1x/Week Duration of treatment (weeks) 12 Plan of Care Start Date 06/29/22 Plan of Care End Date 09/21/22 Therapeutic Interventions Therapeutic Interventions Home Exercise Program,Manual Therapy,Patient/Caregiver Education,Self-Care/Home Management,Soft Tissue Mobilization,Therapeutic Exercises Next Visit Focus/Plan Next Note Type Treatment Note Next Visit Plan Review stretches, add in a quad stretch and sybil pose for lumbar paraspinals
--- NOTE | 2022-07-28 12:25 | PT.OTN ---
Current Diagnoses Other forms of scoliosis, thoracolumbar region (07/28/22) Sacroiliitis, not elsewhere classified (07/28/22) Physical Therapy Treatment Note PT-OP-A Visit Information Start: 06/29/22 09:46 Freq: Status: Active Protocol: Document 07/28/22 10:35 [facility] (Rec: 07/28/22 12:24 [facility] [id number]) Out-Patient Physical Therapy Visit Information Visit Information Visit Type Treatment Note Visit Start Time 10:35 Visit Stop Time 11:20 Total Visit Minutes 45 Visit Number 3 PT-OP-B Current Condition Start: 06/29/22 09:46 Freq: Status: Active Protocol: Document 06/29/22 09:45 [facility] (Rec: 06/29/22 10:39 [facility] [id number]) Current Condition History of Current Condition Onset Date pain began then end of January/ beginning of February Current Complaints left sided lower back pain and SI pain with intermittent sciatic symptoms History of Current Condition lower left side back pain and SI pain, she describes sciatic pain down the leg She describes her pain as constant and nagging and wakes her up. She has a history of scoliosis and osteoporosis She was diagnosed with breast Cancer in february and then had a right mastectomy on the right in march. She is on a aromatose inhibitor due to her cancer, there was too many side effects so she was taken off and put on tomoxifin. She hasn't been back to her exercises due to the cancer treatment. She feel nausea and intestinal digestive things going on. Mornings are the worst but she does try to get out and walk the dog a couple of miles. She tries to do a little bit of stretching exercises. She has been doing pilates for a long time She also notes urinary urgency that is new since her pain progressed. Prior Treatments and Tests x-ray shows DDD along with thoracolumbar dextro scoliosis Current Functional Impairments (Reported) Functional Limitations- ADL's because of her pain she las less than 6 hours of sleep Functional Limitations- Mobility/Gait pain prevents pt from sitting more than one hour pain is increased with standing PT-OP-C Subjective Start: 06/29/22 09:46 Freq: Status: Active Protocol: Document 07/28/22 10:35 [facility] (Rec: 07/28/22 11:31 [facility] [id number]) OP-PT Subjective Patient Comments Patient Comments pt notes her pain is very unpredictable. The mornings are always worse, it doesn't wake her up as much now. Pt has started swimming and she has been doing her exercises. PT-OP-F Manual Assessment Start: 06/29/22 09:46 Freq: Status: Active Protocol: Document 06/29/22 09:45 [facility] (Rec: 06/29/22 14:14 [facility] [id number]) Manual Assessments Soft Tissue Assessment Soft Tissue Mobility Assessment adductor guarding and tightness L>R, iliopsoas tightness with + yoanna test on the left, piriformis tightness L>R Right paraspinal guarding and tightness with scoliosis PT-OP-J Posture/Palpation/Skin Start: 06/29/22 09:46 Freq: Status: Active Protocol: Document 06/29/22 09:45 [facility] (Rec: 06/29/22 14:04 [facility] [id number]) Posture Evaluation Comments Posture Comments pt presents with scoliosis with curvature to the right Palpation Assessment Location left SI joint Palpation Findings Tenderness left sacral ANJELICA Palpation Findings Tenderness Palpation Details sacrum is rotated left with more prominance along the left ANJELICA left piriformis Palpation Findings Soft Tissue Tightness,Spasm, Muscle Guarding,Tenderness PT-OP-L Special Tests Start: 06/29/22 09:46 Freq: Status: Active Protocol: Document 06/29/22 09:45 [facility] (Rec: 06/29/22 14:14 [facility] [id number]) Special Tests Other Special Tests Special Tests + ASLR test on the left for SI instabilty + standing marching test on the left for SI instability left leg is longer in supine than right leg PT-OP-Q Treatments Start: 06/29/22 09:46 Freq: Status: Active Protocol: Document 07/28/22 10:35 [facility] (Rec: 07/28/22 11:31 [facility] [id number]) Therapeutic Exercises Supine Exercises single knee to chest stretch Reps/Minutes hold 1 -2 min Other Exercises sybil pose Reps/Minutes walk hands to the right side cat cow Reps/Minutes x 10 reps wag the tail Reps/Minutes x 10 reps Comments worked on turning to the right side primarily for scoliosis hands and knees thread the needle Reps/Minutes x 10 reps Comments pt to primarily work the left side for scoliosis Manual Therapy Treatment Soft Tissue Mobilization left sided quadratus lumborum release Comments pt in right sidelying working on opening up the left side of the quadratus lumborum. PT-OP-T Assessment and Plan Start: 06/29/22 09:46 Freq: Status: Active Protocol: Document 07/28/22 10:35 [facility] (Rec: 07/28/22 12:24 [facility] [id number]) Physical Therapy Assessment Goals 3 Impairment pt is unable to lay on her left side at night due to L SI pain Senior Care Goal (LTG) pt reports she is able to lay on her left side without a increase in pain LTG Duration 12 weeks 2 Impairment Left sided piriformis, adductor, and iliopsoas tightness and guarding Short Term Goal (STG) Pt is educated in a home flexibility routine that she tolerates well for home STG Duration 5 weeks Senior Care Goal (LTG) Pt presents with improved hip ER, hip Extension, and hip abduction along with improved mobility of the muscle tissue with reduced guarding 1 Impairment L SI pain rated 6-8/10 limiting sitting and standing tolerance and limits sleep Senior Care Goal (LTG) Pt reports a overall reduction in pain levels from the left SI to 2-3/10 or better LTG Duration 12 weeks Assessment Summary Assessment Johanna has started the pool which I feel is very beneficial for her. She does seem to have a little better pain control at this time. I added in pelvic floor for core stabilization for her as she is experiencing urinary incontinence issues. She tolerated this well. We also added in lower trunk rotation as well as sybil pose with sidebends to open up the left side of her spine Physical Therapy Plan Frequency and Duration Frequency of Treatment 1x/Week Duration of treatment (weeks) 12 Plan of Care Start Date 06/29/22 Plan of Care End Date 09/21/22 Therapeutic Interventions Therapeutic Interventions Home Exercise Program,Manual Therapy,Patient/Caregiver Education,Self-Care/Home Management,Soft Tissue Mobilization,Therapeutic Exercises Next Visit Focus/Plan Next Note Type Treatment Note Next Visit Plan continue with plan of care working on the left side of the spine with scoliosis to open up the left side. Revisit how pt is doing in the pool and work on opening up the right iliopsoas.
--- NOTE | 2022-08-17 10:11 | PT-IP ANOTE ---
Pt did not show for appt, she was called by PT at 5 min after her appt time and pt reports she had mistaken her appointment for 10:45. She was sincerely apologetic and her appointment was rescheduled for 08/23/22.
--- NOTE | 2022-09-01 14:19 | PT.OTN ---
Current Diagnoses Other forms of scoliosis, thoracolumbar region (09/01/22) Sacroiliitis, not elsewhere classified (09/01/22) Physical Therapy Treatment Note PT-OP-A Visit Information Start: 06/29/22 09:46 Freq: Status: Active Protocol: Document 09/01/22 13:01 [facility] (Rec: 09/01/22 14:15 [facility] [id number]) Out-Patient Physical Therapy Visit Information Visit Information Visit Type Treatment Note Visit Start Time 13:00 Visit Stop Time 13:45 Total Visit Minutes 45 Visit Number 3 PT-OP-B Current Condition Start: 06/29/22 09:46 Freq: Status: Active Protocol: Document 06/29/22 09:45 [facility] (Rec: 06/29/22 10:39 [facility] [id number]) Current Condition History of Current Condition Onset Date pain began then end of January/ beginning of February Current Complaints left sided lower back pain and SI pain with intermittent sciatic symptoms History of Current Condition lower left side back pain and SI pain, she describes sciatic pain down the leg She describes her pain as constant and nagging and wakes her up. She has a history of scoliosis and osteoporosis She was diagnosed with breast Cancer in february and then had a right mastectomy on the right in march. She is on a aromatose inhibitor due to her cancer, there was too many side effects so she was taken off and put on tomoxifin. She hasn't been back to her exercises due to the cancer treatment. She feel nausea and intestinal digestive things going on. Mornings are the worst but she does try to get out and walk the dog a couple of miles. She tries to do a little bit of stretching exercises. She has been doing pilates for a long time She also notes urinary urgency that is new since her pain progressed. Prior Treatments and Tests x-ray shows DDD along with thoracolumbar dextro scoliosis Current Functional Impairments (Reported) Functional Limitations- ADL's because of her pain she las less than 6 hours of sleep Functional Limitations- Mobility/Gait pain prevents pt from sitting more than one hour pain is increased with standing PT-OP-C Subjective Start: 06/29/22 09:46 Freq: Status: Active Protocol: Document 09/01/22 13:01 [facility] (Rec: 09/01/22 14:15 [facility] [id number]) OP-PT Subjective Patient Comments Patient Comments pain is intermittent now. Mornings are the hardest and pain wears off as day progresses. She usually walks the dog in the am and then late morning afternoon does her stretches. PT-OP-F Manual Assessment Start: 06/29/22 09:46 Freq: Status: Active Protocol: Document 06/29/22 09:45 [facility] (Rec: 06/29/22 14:14 [facility] [id number]) Manual Assessments Soft Tissue Assessment Soft Tissue Mobility Assessment adductor guarding and tightness L>R, iliopsoas tightness with + yoanna test on the left, piriformis tightness L>R Right paraspinal guarding and tightness with scoliosis PT-OP-J Posture/Palpation/Skin Start: 06/29/22 09:46 Freq: Status: Active Protocol: Document 06/29/22 09:45 [facility] (Rec: 06/29/22 14:04 [facility] [id number]) Posture Evaluation Comments Posture Comments pt presents with scoliosis with curvature to the right Palpation Assessment Location left SI joint Palpation Findings Tenderness left sacral ANJELICA Palpation Findings Tenderness Palpation Details sacrum is rotated left with more prominance along the left ANJELICA left piriformis Palpation Findings Soft Tissue Tightness,Spasm, Muscle Guarding,Tenderness PT-OP-L Special Tests Start: 06/29/22 09:46 Freq: Status: Active Protocol: Document 06/29/22 09:45 [facility] (Rec: 06/29/22 14:14 [facility] [id number]) Special Tests Other Special Tests Special Tests + ASLR test on the left for SI instabilty + standing marching test on the left for SI instability left leg is longer in supine than right leg PT-OP-Q Treatments Start: 06/29/22 09:46 Freq: Status: Active Protocol: Document 09/01/22 13:01 [facility] (Rec: 09/01/22 14:15 [facility] [id number]) Therapeutic Exercises Supine Exercises pelvic floor islolations Reps/Minutes HEP single knee to chest stretch Reps/Minutes hold 1 -2 min Other Exercises sidelying quad stretch Reps/Minutes hold 1-2 min ITB stretch Reps/Minutes supine ITB stretch Manual Therapy Treatment Soft Tissue Mobilization ITB release Body Position Supine piriformis release Body Location left piriformis release Mobilization Type Myofascial Release Intensity/Depth Moderate Body Position Prone Comments prone position for piriformis release, pt did have more tightness in her knee today and didn't tolerate IR/ER as well Manual Techniques ITB stretch Comments in supine using a strap for support manual prone hip ER stretch Comments come c/o knee irritation with prone IR/ER today manual quad stretch Comments in prone over the body pillow PT-OP-T Assessment and Plan Start: 06/29/22 09:46 Freq: Status: Active Protocol: Document 09/01/22 13:01 [facility] (Rec: 09/01/22 14:15 [facility] [id number]) Physical Therapy Assessment Assessment Summary Assessment Johanna has been exercising in the pool and feels it has been good. She does feel some tightness in the ITB region so this area was worked on today and pt could feel her hip loosening. She was given ITB stretches for home as well as quad stretches. Physical Therapy Plan Frequency and Duration Frequency of Treatment 1x/Week Duration of treatment (weeks) 12 Plan of Care Start Date 06/29/22 Plan of Care End Date 09/21/22 Therapeutic Interventions Therapeutic Interventions Home Exercise Program,Manual Therapy,Patient/Caregiver Education,Self-Care/Home Management,Soft Tissue Mobilization,Therapeutic Exercises Next Visit Focus/Plan Next Note Type Treatment Note Next Visit Plan review urge deference technique next visits as well as the new stretches pt was given today
--- NOTE | 2022-09-15 14:53 | PT.OTN ---
Current Diagnoses Other forms of scoliosis, thoracolumbar region (09/15/22) Sacroiliitis, not elsewhere classified (09/15/22) Physical Therapy Treatment Note PT-OP-A Visit Information Start: 06/29/22 09:46 Freq: Status: Active Protocol: Document 09/15/22 14:44 [facility] (Rec: 09/15/22 14:51 [facility] [id number]) Out-Patient Physical Therapy Visit Information Visit Information Visit Type Treatment Note Visit Start Time 13:50 Visit Stop Time 14:35 Total Visit Minutes 45 Visit Number 5 PT-OP-B Current Condition Start: 06/29/22 09:46 Freq: Status: Active Protocol: Document 06/29/22 09:45 [facility] (Rec: 06/29/22 10:39 [facility] [id number]) Current Condition History of Current Condition Onset Date pain began then end of January/ beginning of February Current Complaints left sided lower back pain and SI pain with intermittent sciatic symptoms History of Current Condition lower left side back pain and SI pain, she describes sciatic pain down the leg She describes her pain as constant and nagging and wakes her up. She has a history of scoliosis and osteoporosis She was diagnosed with breast Cancer in february and then had a right mastectomy on the right in march. She is on a aromatose inhibitor due to her cancer, there was too many side effects so she was taken off and put on tomoxifin. She hasn't been back to her exercises due to the cancer treatment. She feel nausea and intestinal digestive things going on. Mornings are the worst but she does try to get out and walk the dog a couple of miles. She tries to do a little bit of stretching exercises. She has been doing pilates for a long time She also notes urinary urgency that is new since her pain progressed. Prior Treatments and Tests x-ray shows DDD along with thoracolumbar dextro scoliosis Current Functional Impairments (Reported) Functional Limitations- ADL's because of her pain she las less than 6 hours of sleep Functional Limitations- Mobility/Gait pain prevents pt from sitting more than one hour pain is increased with standing PT-OP-C Subjective Start: 06/29/22 09:46 Freq: Status: Active Protocol: Document 09/15/22 13:55 [facility] (Rec: 09/15/22 14:41 [facility] [id number]) OP-PT Subjective Patient Comments Patient Comments pt notes she has been reasonably okay, she traveled and has been gardening and it has been okay, she has been able to do [place] PT-OP-F Manual Assessment Start: 06/29/22 09:46 Freq: Status: Active Protocol: Document 06/29/22 09:45 [facility] (Rec: 06/29/22 14:14 [facility] [id number]) Manual Assessments Soft Tissue Assessment Soft Tissue Mobility Assessment adductor guarding and tightness L>R, iliopsoas tightness with + yoanna test on the left, piriformis tightness L>R Right paraspinal guarding and tightness with scoliosis PT-OP-J Posture/Palpation/Skin Start: 06/29/22 09:46 Freq: Status: Active Protocol: Document 06/29/22 09:45 [facility] (Rec: 06/29/22 14:04 [facility] [id number]) Posture Evaluation Comments Posture Comments pt presents with scoliosis with curvature to the right Palpation Assessment Location left SI joint Palpation Findings Tenderness left sacral ANJELICA Palpation Findings Tenderness Palpation Details sacrum is rotated left with more prominance along the left ANJELICA left piriformis Palpation Findings Soft Tissue Tightness,Spasm, Muscle Guarding,Tenderness PT-OP-L Special Tests Start: 06/29/22 09:46 Freq: Status: Active Protocol: Document 06/29/22 09:45 [facility] (Rec: 06/29/22 14:14 [facility] [id number]) Special Tests Other Special Tests Special Tests + ASLR test on the left for SI instabilty + standing marching test on the left for SI instability left leg is longer in supine than right leg PT-OP-Q Treatments Start: 06/29/22 09:46 Freq: Status: Active Protocol: Document 09/15/22 14:44 [facility] (Rec: 09/15/22 14:51 [facility] [id number]) Therapeutic Exercises Supine Exercises pelvic floor islolations Reps/Minutes HEP Comments ball was used for assist piriformis stretch Reps/Minutes hold 1-2 min single knee to chest stretch Reps/Minutes hold 1 -2 min Other Exercises sybil pose Reps/Minutes walk hands to the right side Manual Therapy Treatment Soft Tissue Mobilization piriformis release Body Location left piriformis release Mobilization Type Myofascial Release Intensity/Depth Moderate Body Position Prone Comments prone position for piriformis release, pt did have more tightness in her knee today and didn't tolerate IR/ER as well Manual Techniques manual prone hip ER stretch Comments pt tolerated well today manual quad stretch Comments in prone over the body pillow PT-OP-T Assessment and Plan Start: 06/29/22 09:46 Freq: Status: Active Protocol: Document 09/15/22 14:44 [facility] BY [facility] (Rec: 09/15/22 14:51 REPLACED BY [facility] [id number]) Physical Therapy Assessment Goals 4 Impairment core weakness and pt has had to stop pilates Custodial Goal (LTG) Johanna is able to tolerate core stabilization exercises for her scoliosis and has been able to return to a gentle pilates program 3 Impairment pt is unable to lay on her left side at night due to L SI pain Custodial Goal (LTG) pt reports she is able to lay on her left side without a increase in pain this has been improving LTG Duration 12 weeks 2 Impairment Left sided piriformis, adductor, and iliopsoas tightness and guarding Short Term Goal (STG) Pt is educated in a home flexibility routine that she tolerates well for home pt tolerating a home program well STG Duration 5 weeks Mission Analyst Goal (LTG) Pt presents with improved hip ER, hip Extension, and hip abduction along with improved mobility of the muscle tissue with reduced guarding 09/15/22 good progress 1 Impairment L SI pain rated 6-8/10 limiting sitting and standing tolerance and limits sleep Custodial Goal (LTG) Pt reports a overall reduction in pain levels from the left SI to 2-3/10 or better good progress, pt is not in as much pain now and has been able to do some gardening LTG Duration 12 weeks Assessment Summary Assessment Nick has been making good overall progress with PT. She has been seen for a total of 5 visits in PT. Her pain levels are reduced now and she has been tolerating a little gardening. I have started working on stabilization exercises with her and she tolerates this well. She is experiencing urinary incontinence since starting the tamoxifen and the pelvic floor exercises are helping with her urge incontinence. She would benefit from continued stabilization exercises for SI and low back stabilization. Physical Therapy Plan Frequency and Duration Frequency of Treatment 1x/Week Duration of treatment (weeks) 8 Plan of Care Start Date 09/15/22 Plan of Care End Date 11/10/22 Therapeutic Interventions Therapeutic Interventions Home Exercise Program,Manual Therapy,Patient/Caregiver Education,Self-Care/Home Management,Soft Tissue Mobilization,Therapeutic Exercises Next Visit Focus/Plan Next Note Type Treatment Note Next Visit Plan progress core stabilization exercises, continue with manual therapy techniques for the left gluteals and sacral region.
--- NOTE | 2022-09-15 14:54 | PT.OPPOC ---
Physical, Occupational & Speech Therapy At [facility] Current Diagnoses Other forms of scoliosis, thoracolumbar region (09/15/22) Sacroiliitis, not elsewhere classified (09/15/22) Visit Care Team Role Provider Type YESENIA Ridley Attending Provider Advanced Pre Owned Sales Manager Family Provider Primary Care Provider Referring Provider Specialty: Medical Address: [address] [place] [address], [facility] Email: [email or web address] Plan Of Care PT-OP-T Assessment and Plan Start: 06/29/22 09:46 Freq: Status: Active Protocol: Document 09/15/22 14:44 [facility] (Rec: 09/15/22 14:51 [facility] [id number]) Physical Therapy Assessment Goals 4 Impairment core weakness and pt has had to stop pilates Gyn Goal (LTG) Johanna is able to tolerate core stabilization exercises for her scoliosis and has been able to return to a gentle pilates program 3 Impairment pt is unable to lay on her left side at night due to L SI pain Gyn Goal (LTG) pt reports she is able to lay on her left side without a increase in pain this has been improving LTG Duration 12 weeks 2 Impairment Left sided piriformis, adductor, and iliopsoas tightness and guarding Short Term Goal (STG) Pt is educated in a home flexibility routine that she tolerates well for home pt tolerating a home program well STG Duration 5 weeks Care Home Goal (LTG) Pt presents with improved hip ER, hip Extension, and hip abduction along with improved mobility of the muscle tissue with reduced guarding 09/15/22 good progress 1 Impairment L SI pain rated 6-8/10 limiting sitting and standing tolerance and limits sleep Gyn Goal (LTG) Pt reports a overall reduction in pain levels from the left SI to 2-3/10 or better good progress, pt is not in as much pain now and has been able to do some gardening LTG Duration 12 weeks Assessment Summary Assessment Johanna has been making good overall progress with PT. She has been seen for a total of 5 visits in PT. Her pain levels are reduced now and she has been tolerating a little gardening. I have started working on stabilization exercises with her and she tolerates this well. She is experiencing urinary incontinence since starting the tamoxifen and the pelvic floor exercises are helping with her urge incontinence. She would benefit from continued stabilization exercises for SI and low back stabilization. Physical Therapy Plan Frequency and Duration Frequency of Treatment 1x/Week Duration of treatment (weeks) 8 Plan of Care Start Date 09/15/22 Plan of Care End Date 11/10/22 Therapeutic Interventions Therapeutic Interventions Home Exercise Program,Manual Therapy,Patient/Caregiver Education,Self-Care/Home Management,Soft Tissue Mobilization,Therapeutic Exercises Next Visit Focus/Plan Next Note Type Treatment Note Next Visit Plan progress core stabilization exercises, continue with manual therapy techniques for the left gluteals and sacral region. Plan of Care Dates Plan of Care Start Date 09/15/22 Plan of Care End Date 11/10/22 Electronically Signed by: Ana Maloney, PT 09/15/22 2129 If you are in agreement with this Plan of Care, please return a signed and dated copy. I have reviewed this Plan of Care and certify that the skilled therapy services above are required to meet the patient?s needs. Physician Signature Date Printed Name and Credentials Clinical Instructor Signature Printed Name and Credentials
--- NOTE | 2022-10-06 17:41 | PT.OTN ---
Current Diagnoses Other forms of scoliosis, thoracolumbar region (10/06/22) Sacroiliitis, not elsewhere classified (10/06/22) Physical Therapy Treatment Note PT-OP-A Visit Information Start: 06/29/22 09:46 Freq: Status: Active Protocol: Document 10/06/22 14:25 [facility] (Rec: 10/06/22 17:38 [facility] [id number]) Out-Patient Physical Therapy Visit Information Visit Information Visit Type Treatment Note Visit Start Time 14:25 Visit Stop Time 15:10 Total Visit Minutes 45 Visit Number 6 Evaluation Information Evaluation Date 06/29/22 PT-OP-B Current Condition Start: 06/29/22 09:46 Freq: Status: Active Protocol: Document 06/29/22 09:45 [facility] (Rec: 06/29/22 10:39 [facility] [id number]) Current Condition History of Current Condition Onset Date pain began then end of January/ beginning of February Current Complaints left sided lower back pain and SI pain with intermittent sciatic symptoms History of Current Condition lower left side back pain and SI pain, she describes sciatic pain down the leg She describes her pain as constant and nagging and wakes her up. She has a history of scoliosis and osteoporosis She was diagnosed with breast Cancer in february and then had a right mastectomy on the right in march. She is on a aromatose inhibitor due to her cancer, there was too many side effects so she was taken off and put on tomoxifin. She hasn't been back to her exercises due to the cancer treatment. She feel nausea and intestinal digestive things going on. Mornings are the worst but she does try to get out and walk the dog a couple of miles. She tries to do a little bit of stretching exercises. She has been doing pilates for a long time She also notes urinary urgency that is new since her pain progressed. Prior Treatments and Tests x-ray shows DDD along with thoracolumbar dextro scoliosis Current Functional Impairments (Reported) Functional Limitations- ADL's because of her pain she las less than 6 hours of sleep Functional Limitations- Mobility/Gait pain prevents pt from sitting more than one hour pain is increased with standing PT-OP-C Subjective Start: 06/29/22 09:46 Freq: Status: Active Protocol: Document 10/06/22 14:25 [facility] (Rec: 10/06/22 16:01 [facility] [id number]) OP-PT Subjective Patient Comments Patient Comments pt notes her pain is intermittent now, she has to be cautious with gardening. Johanna reports she feels the tamoxifen she has been on since June has caused urinary incontinence especially with urgency. She would like more education on the pelvic floor Patient Reported Progress Improving PT-OP-F Manual Assessment Start: 06/29/22 09:46 Freq: Status: Active Protocol: Document 06/29/22 09:45 [facility] (Rec: 06/29/22 14:14 [facility] [id number]) Manual Assessments Soft Tissue Assessment Soft Tissue Mobility Assessment adductor guarding and tightness L>R, iliopsoas tightness with + yoanna test on the left, piriformis tightness L>R Right paraspinal guarding and tightness with scoliosis PT-OP-J Posture/Palpation/Skin Start: 06/29/22 09:46 Freq: Status: Active Protocol: Document 06/29/22 09:45 [facility] (Rec: 06/29/22 14:04 [facility] [id number]) Posture Evaluation Comments Posture Comments pt presents with scoliosis with curvature to the right Palpation Assessment Location left SI joint Palpation Findings Tenderness left sacral ANJELICA Palpation Findings Tenderness Palpation Details sacrum is rotated left with more prominance along the left ANJELICA left piriformis Palpation Findings Soft Tissue Tightness,Spasm, Muscle Guarding,Tenderness PT-OP-L Special Tests Start: 06/29/22 09:46 Freq: Status: Active Protocol: Document 06/29/22 09:45 [facility] (Rec: 06/29/22 14:14 [facility] [id number]) Special Tests Other Special Tests Special Tests + ASLR test on the left for SI instabilty + standing marching test on the left for SI instability left leg is longer in supine than right leg PT-OP-Q Treatments Start: 06/29/22 09:46 Freq: Status: Active Protocol: Document 10/06/22 14:25 [facility] (Rec: 10/06/22 16:01 [facility] [id number]) Therapeutic Exercises Supine Exercises pelvic floor islolations Reps/Minutes x 10 reps Comments ball was used for assist Manual Therapy Treatment Soft Tissue Mobilization piriformis release Body Location left piriformis release Mobilization Type Myofascial Release Intensity/Depth Moderate Body Position Prone Comments prone position for piriformis release, pt noted a good release in her sacrum with manual work Manual Techniques manual sacral counternutation Body Location sacrum Body Position Prone Comments pt notes good release of the sacrum with manual techniques PT-OP-T Assessment and Plan Start: 06/29/22 09:46 Freq: Status: Active Protocol: Document 10/06/22 14:25 [facility] (Rec: 10/06/22 16:01 [facility] [id number]) Physical Therapy Assessment Assessment Summary Assessment Adienne notes increased c/o urinary incontinence the longer she is on the tamoxifen . I did go over pelvic floor long holds today which is also beneficial for her pelvis stability. She may be a candidate for EMG biofeedback for pelvic floor strengthening as well. Physical Therapy Plan Frequency and Duration Frequency of Treatment 1x/Week Duration of treatment (weeks) 8 Plan of Care Start Date 09/15/22 Plan of Care End Date 11/10/22 Next Visit Focus/Plan Next Note Type Treatment Note Next Visit Plan progress core stabilization exercises, continue with manual therapy techniques for the left gluteals and sacral region.
--- NOTE | 2022-11-09 14:00 | PT.OTN ---
Current Diagnoses Other forms of scoliosis, thoracolumbar region (11/09/22) Sacroiliitis, not elsewhere classified (11/09/22) Physical Therapy Treatment Note PT-OP-A Visit Information Start: 06/29/22 09:46 Freq: Status: Active Protocol: Document 11/09/22 13:57 [facility] (Rec: 11/09/22 14:00 [facility] [id number]) Out-Patient Physical Therapy Visit Information Visit Information Visit Type Treatment Note Visit Start Time 13:00 Visit Stop Time 13:45 Total Visit Minutes 45 Visit Number 7 PT-OP-B Current Condition Start: 06/29/22 09:46 Freq: Status: Active Protocol: Document 06/29/22 09:45 [facility] (Rec: 06/29/22 10:39 [facility] [id number]) Current Condition History of Current Condition Onset Date pain began then end of January/ beginning of February Current Complaints left sided lower back pain and SI pain with intermittent sciatic symptoms History of Current Condition lower left side back pain and SI pain, she describes sciatic pain down the leg She describes her pain as constant and nagging and wakes her up. She has a history of scoliosis and osteoporosis She was diagnosed with breast Cancer in february and then had a right mastectomy on the right in march. She is on a aromatose inhibitor due to her cancer, there was too many side effects so she was taken off and put on tomoxifin. She hasn't been back to her exercises due to the cancer treatment. She feel nausea and intestinal digestive things going on. Mornings are the worst but she does try to get out and walk the dog a couple of miles. She tries to do a little bit of stretching exercises. She has been doing pilates for a long time She also notes urinary urgency that is new since her pain progressed. Prior Treatments and Tests x-ray shows DDD along with thoracolumbar dextro scoliosis Current Functional Impairments (Reported) Functional Limitations- ADL's because of her pain she las less than 6 hours of sleep Functional Limitations- Mobility/Gait pain prevents pt from sitting more than one hour pain is increased with standing PT-OP-C Subjective Start: 06/29/22 09:46 Freq: Status: Active Protocol: Document 11/09/22 13:05 [facility] (Rec: 11/09/22 13:57 [facility] [id number]) OP-PT Subjective Patient Comments Patient Comments pt notes she is doing better and is really trying to stretch after gardening. Incontinence is also a little better Patient Reported Progress Improving PT-OP-F Manual Assessment Start: 06/29/22 09:46 Freq: Status: Active Protocol: Document 06/29/22 09:45 [facility] (Rec: 06/29/22 14:14 [facility] [id number]) Manual Assessments Soft Tissue Assessment Soft Tissue Mobility Assessment adductor guarding and tightness L>R, iliopsoas tightness with + yoanna test on the left, piriformis tightness L>R Right paraspinal guarding and tightness with scoliosis PT-OP-J Posture/Palpation/Skin Start: 06/29/22 09:46 Freq: Status: Active Protocol: Document 06/29/22 09:45 [facility] (Rec: 06/29/22 14:04 [facility] [id number]) Posture Evaluation Comments Posture Comments pt presents with scoliosis with curvature to the right Palpation Assessment Location left SI joint Palpation Findings Tenderness left sacral ANJELICA Palpation Findings Tenderness Palpation Details sacrum is rotated left with more prominance along the left ANJELICA left piriformis Palpation Findings Soft Tissue Tightness,Spasm, Muscle Guarding,Tenderness PT-OP-L Special Tests Start: 06/29/22 09:46 Freq: Status: Active Protocol: Document 06/29/22 09:45 [facility] (Rec: 06/29/22 14:14 [facility] [id number]) Special Tests Other Special Tests Special Tests + ASLR test on the left for SI instabilty + standing marching test on the left for SI instability left leg is longer in supine than right leg PT-OP-Q Treatments Start: 06/29/22 09:46 Freq: Status: Active Protocol: Document 11/09/22 13:05 [facility] (Rec: 11/09/22 13:57 [facility] [id number]) Therapeutic Exercises Supine Exercises pelvic floor islolations Reps/Minutes x 10 reps Comments pt able to do without the ball piriformis stretch Reps/Minutes hold 1-2 min single knee to chest stretch Reps/Minutes hold 1 -2 min Other Exercises ITB stretch Reps/Minutes supine ITB stretch Manual Therapy Treatment Soft Tissue Mobilization ITB release Body Position Supine Manual Techniques iliopsoas release and manual stretch Comments B manual release and stretch in yoanna test position ITB stretch Comments in supine using a strap for support PT-OP-T Assessment and Plan Start: 06/29/22 09:46 Freq: Status: Active Protocol: Document 11/09/22 13:57 [facility] (Rec: 11/09/22 14:00 [facility] [id number]) Physical Therapy Assessment Goals 4 Impairment core weakness and pt has had to stop pilates Button Grader Goal (LTG) Johanna is able to tolerate core stabilization exercises for her scoliosis and has been able to return to a gentle pilates program Goal met 3 Impairment pt is unable to lay on her left side at night due to L SI pain Button Grader Goal (LTG) pt reports she is able to lay on her left side without a increase in pain goal met LTG Duration 12 weeks 2 Impairment Left sided piriformis, adductor, and iliopsoas tightness and guarding Short Term Goal (STG) Pt is educated in a home flexibility routine that she tolerates well for home pt tolerating a home program well STG Duration 5 weeks Residential Goal (LTG) Pt presents with improved hip ER, hip Extension, and hip abduction along with improved mobility of the muscle tissue with reduced guarding goal met 1 Impairment L SI pain rated 6-8/10 limiting sitting and standing tolerance and limits sleep Button Grader Goal (LTG) Pt reports a overall reduction in pain levels from the left SI to 2-3/10 or better good progress, pt is not in as much pain now and has been able to do some gardening LTG Duration 12 weeks Assessment Summary Assessment Johanna has made great overall progress and she is not feeling the pain symptoms she was feeling. At this point she is Independent with her HEP and will be discharged from PT Physical Therapy Plan Discharge Physical Therapy Discharge Reasons Goals Met
== END 2022-11-10 14:46 | disposition home or self-care (01) ==
LOC: PHYS 13:00
PROVIDERS: Absent Provider Registered Nurse Diabetes Educator; Family Provider Registered Nurse Diabetes Educator; PCP Registered Nurse Diabetes Educator; Referring Provider Registered Nurse Diabetes Educator; Visit Provider Registered Nurse Diabetes Educator
DX: M41.85 Other forms of scoliosis, thoracolumbar region (principal); M46.1 Sacroiliitis, not elsewhere classified
CPT/HCPCS: 97110; 97140; 97161

== ENCOUNTER → 2022-12-20 08:23 | Outpatient (CLI) | payer MEDICARE, SELFPAY ==
--- NOTE | 2022-12-20 08:25 | DI.RAD.S_ITS ---
PROCEDURE: XR THORACIC SPINE 3V INDICATIONS: Osteoporosis TECHNIQUE: 3 views of the thoracic spine were acquired. COMPARISON: None. FINDINGS: Bones: No fractures or dislocations. No suspicious bony lesions. 12 pairs of ribs are noted, and appear intact where visualized. Moderate rotatory dextro curvature centered L1. Soft tissues: No paravertebral stripe thickening. IMPRESSION: Moderate rotatory dextro curvature centered at L1. No acute bony abnormality of the thoracic spine. Dictated by: Gustavo Henson M.D. on 12/20/2022 at 11:08 Approved by: Gustavo Henson M.D. on 12/20/2022 at 11:10
== END ==
PROVIDERS: Family Provider Registered Nurse Diabetes Educator; PCP Registered Nurse Diabetes Educator; Referring Provider Internal Medicine Endocrinology, Diabetes & Metabolism; Visit Provider Internal Medicine Endocrinology, Diabetes & Metabolism
DX: M81.8 Other osteoporosis without current pathological fracture (principal)
CPT/HCPCS: 72072

== ENCOUNTER → 2023-03-07 10:15 | Outpatient (CLI) | payer MEDICARE, SELFPAY ==
[2023-03-10 13:10] LABS: Calprotectin, Stool < 5 ug/g (0-120)
[2023-03-14 11:54] LABS: Pancreatic Elastase, Fecal 101 (>200)
== END ==
PROVIDERS: Family Provider Registered Nurse Diabetes Educator; PCP Registered Nurse Diabetes Educator; Referring Provider Internal Medicine; Visit Provider Internal Medicine
DX: R19.7 Diarrhea, unspecified (principal)
CPT/HCPCS: 82656; 83993

== ENCOUNTER 2023-03-07 10:24 | Emergency (ER) | payer MEDICARE, SELFPAY ==
[2023-03-07] VITALS (10 sets, daily range): BP systolic 133–187; BP diastolic 64–81; PULSE 70–101; RESP 14–20; TEMP 37; O2SAT 97–100; BMI 17.5
--- NOTE | 2023-03-07 10:40 | DI.CT.S_ITS ---
PROCEDURE: CT ABDOMEN PELVIS W CON INDICATIONS: Generalized abdominal pain with distention TECHNIQUE: After the administration of intravenous contrast, axial sections acquired from the lung bases to the pubic symphysis. Coronal and sagittal reformats were performed. For radiation dose reduction, the following was used: automated exposure control, adjustment of mA and/or kV according to patient size. COMPARISON: None. FINDINGS: Image quality: Excellent. Lung bases: Unremarkable. Heart: No significant findings. ABDOMEN: Liver: Unremarkable. Gallbladder: Unremarkable Biliary ducts: No intrahepatic or extrahepatic biliary ductal dilatation identified. Pancreas: Unremarkable. Spleen: No splenomegaly Adrenal Glands: Unremarkable. Kidneys and Ureters: Kidneys are symmetric in size and enhancement, and there is no obstructive uropathy. No perinephric inflammatory changes. Ureters are normal in course and caliber. Tiny right and small left bilateral renal hypodensities are incompletely characterized but likely represent renal cysts. Stomach and Bowel: Stomach, small bowel loops, and colon are unremarkable. Numerous fluid-filled loops of nondistended, non inflamed appearing small bowel. Moderate amount of fecal material seen throughout the colon. Peritoneum: No abnormal intraperitoneal fluid. No free air. Ventral Wall: No hernias. Abdominal Nodes: No retroperitoneal or mesenteric adenopathy by size criteria. Vessels: Aorta and inferior vena cava are normal in size. PELVIS: Pelvic Organs: Unremarkable. Bladder: Urinary bladder thickness appears normal for degree of distention. No perivesicular inflammatory stranding. Pelvic Nodes: No enlarged lymph nodes. Miscellaneous: No hernias are seen. Bones: No acute vertebral body compression fractures. Multilevel spondylitic changes throughout the imaged spine. No suspicious osseous lesions. Dextroscoliosis. IMPRESSION: 1. Numerous fluid-filled loops of small bowel likely representing enteritis either infectious or inflammatory in etiology. No evidence for bowel obstruction. 2. Moderate amount of fecal material seen throughout the colon which may represent constipation. Dictated by: Tarik Villavicencio M.D. on 03/07/2023 at 12:12 Approved by: Tarik Villavicencio M.D. on 03/07/2023 at 12:18
--- NOTE | 2023-03-07 10:41 | ED_ITS ---
HPI - General Adult General Chief complaint: Abdominal Pain Stated complaint: gut issues/ loosing weight t-7 Time Seen by Provider: 03/07/23 10:36 Source: patient Mode of arrival: Ambulatory Limitations: no limitations History of Present Illness HPI narrative: 67-year-old female. Has a history of breast cancer. Is on tamoxifen. Has had off and on abdominal discomfort since starting tamoxifen at the beginning of the year however over the past week she is noticed some generalized abdominal discomfort. Nausea but no vomiting. No fevers. Is having loose stools. No urinary issues. Eating bowel movements and urination have no change in her discomfort. She does feel like she is having some distention. No prior abdominal surgeries. Related Data Home Medications Medication Instructions Recorded Confirmed brinzolamide 1 %-brimonidine 0.2 % 1 drop EYE-BOTH BID 11/14/19 01/02/23 eye drops,suspension (Simbrinza) travoprost 0.004 % eye drops EYE-BOTH ##0 12/03/20 01/02/23 (Travatan Z) calcium carbonate 600 mg calcium 600 mg PO DAILY 10/26/22 01/02/23 (1,500 mg) tablet (Calcium) cholecalciferol (vitamin D3) 50 50 mcg PO DAILY 10/26/22 01/02/23 mcg (2,000 unit) capsule cholestyramine (with sugar) 4 gram 4 ea PO 10/26/22 01/02/23 powder for susp in a packet green tea leaf extract cap PO 10/26/22 01/02/23 lactobacillus combination no.4 3 3,000 mmu cells PO DAILY 10/26/22 01/02/23 billion cell capsule (Probiotic) losartan 25 mg tablet 25 mg PO 10/26/22 10/26/22 magnesium mal, threon, chelate mg PO 10/26/22 01/02/23 milk thistle 150 mg capsule 150 mg PO BID 10/26/22 01/02/23 tamoxifen 10 mg tablet 10 mg PO 10/26/22 01/02/23 vitamin B complex (B 1 tab PO DAILY 10/26/22 01/02/23 Complex-Vitamin B12 tablet) vitamin E (dl, acetate) 45 mg (100 45 mg PO DAILY 10/26/22 01/02/23 unit) capsule vitamin K2 45 mcg capsule 45 mcg PO DAILY 10/26/22 01/02/23 famotidine 20 mg tablet 20 mg PO BID 01/02/23 01/02/23 Previous Rx's Medication Instructions Recorded estradiol 0.01% (0.1 mg/gram) 0.5 appful vaginal 2XW #42.5 grams 10/14/22 vaginal cream ciprofloxacin HCl 500 mg tablet 500 mg PO BID 3 days #6 tabs 03/07/23 (Cipro) Allergies Allergy/AdvReac Type Severity Reaction Status Date / Time No Known Drug Allergies Allergy Verified 03/07/23 10:39 Review of Systems Constitutional Constitutional: Reports system reviewed and no additional complaints, except as documented Cardiovascular Cardiovascular: Reports system reviewed and no additional complaints, except as documented Respiratory Respiratory: Reports system reviewed and no additional complaints, except as documented Gastrointestinal Gastrointestinal: Reports system reviewed and no additional complaints, except as documented Genitourinary Genitourinary: Reports system reviewed and no additional complaints, except as documented Integumentary/Breasts Skin/Breast: Reports system reviewed and no additional complaints, except as documented Neurologic Neurologic: Reports system reviewed and no additional complaints, except as documented Hematologic/Lymphatic On Anticoagulants: No Patient History Medical History Adenocarcinoma of right breast Adjustment disorder with mixed anxiety and depressed mood Adjustment insomnia Breast mass, right Chicken pox (~1958) Essential hypertension Glaucoma (~2004) Impaired fasting blood sugar Intermittent palpitations Kidney stones (~1996) Nonrheumatic aortic (valve) insufficiency Osteoporosis (~2005) Scoliosis Family History Father Stroke Mother Cancer Sister Hypertension Grandfather History of heart disease Social History Smoking Status: Never smoker second hand exposure: Yes ( CHILD) alcohol intake: current substance use type: does not use Smoking Status: Never smoker alcohol intake frequency: 0-2 drinks per day Substance Use Type: does not use Exam Initial Vital Signs Initial Vital Signs: Vital Signs Temperature 98.6 F 03/07/23 10:24 Pulse Rate 96 H 03/07/23 10:24 Respiratory Rate 14 03/07/23 10:24 Blood Pressure 187/81 H 03/07/23 10:24 Pulse Oximetry 98 03/07/23 10:24 Oxygen Delivery Method Room Air 03/07/23 10:24 HENDE Head: normal to inspection and normocephalic Resp Effort & Inspection: normal respiratory effort Auscultation: clear to auscultation bilaterally Cardio Rate: regular rate Rhythm: regular rhythm GI Inspection: normal to inspection and distended Palpation: soft, No firm, No guarding and tender Skin General: no rashes or lesions noted Neuro General: patient alert, patient awake and moves all extremities Extrem General: normal to inspection and capillary refill normal Course Orders Ordered: ED Orders 03/07/23 10:40 CT abdomen pelvis w con Stat 03/07/23 10:42 Complete Blood Count AUTO DIFF Stat Comprehensive Metabolic Panel Stat Lipase Stat Vital Signs Vital signs: Vital Signs - 8 hr 03/07/23 10:24 03/07/23 10:38 03/07/23 10:39 Temperature 98.6 F Pulse Rate 96 H 101 H Respiratory Rate 14 Blood Pressure 187/81 H 187/81 H Pulse Oximetry 98 98 Oxygen Delivery Method Room Air Room Air 03/07/23 10:39 03/07/23 11:00 03/07/23 11:00 Temperature Pulse Rate 101 H 83 Respiratory Rate 20 Blood Pressure 149/69 H Pulse Oximetry 98 97 Oxygen Delivery Method 03/07/23 11:30 03/07/23 11:30 03/07/23 11:53 Temperature Pulse Rate 80 Respiratory Rate 20 Blood Pressure 155/69 H 143/67 H Pulse Oximetry 99 Oxygen Delivery Method 03/07/23 12:00 03/07/23 12:00 Temperature Pulse Rate 75 Respiratory Rate Blood Pressure 133/64 Pulse Oximetry 100 Oxygen Delivery Method Medical Decision Making Lab Data Lab results reviewed: Yes I reviewed the patient's lab results. 03/07/23 10:42 03/07/23 10:42 Labs: Lab Results 03/07/23 03/07/23 03/07/23 Range/Units 10:42 10:42 10:42 WBC 5.3 (4.5-11.0) X10^3/uL RBC 4.36 (4.0-5.2) X10^6/uL Hgb 13.6 (12.0-16.0) g/dL Hct 40.0 (36-46) % MCV 91.7 (80-100) fL MCH 31.1 (26-34) PG MCHC 34.0 (30-36) % RDW 13.6 (11.6-14.8) % Plt Count 208 (150-400) X10^3/uL Neut % (Auto) 73.8 (50-75) % Lymph % (Auto) 18.2 L (25-40) % [place] % (Auto) 6.7 (3-14) % Eos % (Auto) 0.4 L (2-4) % Baso % (Auto) 0.9 (0-2) % Neut # (Auto) 3900 (0748-4566) /uL Lymph # (Auto) 1000 L (1857-2332) /uL [place] # (Auto) 400 (0-900) /uL Eos # (Auto) 0 (0-450) /uL Baso # (Auto) 0 (0-100) /uL Sodium 136 L (137-145) mmol/L Potassium 3.9 (3.4-5.1) mmol/L Chloride 104 (98-107) mmol/L Carbon Dioxide 27 (22-32) mmol/L BUN 12 (7-17) mg/dL Creatinine 0.71 (0.52-1.04) mg/dL Estimated GFR > 60 (>60) mL/min BUN/Creatinine Ratio 16.9 (6-22) Glucose 128 H (80-110) mg/dL Calcium 9.4 (8.4-10.2) mg/dL Total Bilirubin 0.6 (0.2-1.3) mg/dL AST 26 (14-36) IU/L ALT 22 (<35) IU/L Alkaline Phosphatase 75 (38-126) U/L Total Protein 7.1 (6.3-8.2) g/dL Albumin 4.2 (3.5-5.0) g/dL Globulin 2.9 (1.7-4.1) g/dL Albumin/Globulin Ratio 1.4 (1.0-2.8) Lipase 136 (23-300) U/L Urine Dip Bedside Urine Glucose Negative Bedside Urine Bilirubin - Negative Bedside Urine Ketone - Negative Urine Specific [place] 1.000 Bedside Urine Occult Blood - Negative Bedside Urine pH 7.0 Bedside Urine Protein - Negative Bedside Urine Urobilinogen - Negative Bedside Urine Nitrite - Negative Bedside Urine Leukocytes +/- 15 Esterase Point of care testing: Urine Dip Bedside Urine Glucose Negative Bedside Urine Bilirubin - Negative Bedside Urine Ketone - Negative Urine Specific [place] 1.000 Bedside Urine Occult Blood - Negative Bedside Urine pH 7.0 Bedside Urine Protein - Negative Bedside Urine Urobilinogen - Negative Bedside Urine Nitrite - Negative Bedside Urine Leukocytes +/- [address] scan - abdomen/pelvis: Radiologist's Impression: PROCEDURE:? CT ABDOMEN PELVIS W CON ? INDICATIONS:? Generalized abdominal pain with distention ? TECHNIQUE:? After the administration of intravenous contrast, axial sections acquired from the lung bases to the pubic symphysis.? Coronal and sagittal reformats were performed.? For radiation dose reduction, the following was used:? automated exposure control, adjustment of mA and/or kV according to patient size.? ? COMPARISON:? None. ? FINDINGS:? Image quality:? Excellent.? ? Lung bases:? Unremarkable. Heart:? No significant findings. ? ABDOMEN: Liver:? Unremarkable.? ? Gallbladder:? Unremarkable Biliary ducts: No intrahepatic or extrahepatic biliary ductal dilatation identified.? Pancreas:? Unremarkable.? ? Spleen:? No splenomegaly Adrenal Glands:? Unremarkable.? ? Kidneys and Ureters: Kidneys are symmetric in size and enhancement, and there is no obstructive uropathy.? No perinephric inflammatory changes. Ureters are normal in course and caliber.? Tiny right and small left bilateral renal hypodensities are incompletely characterized but likely represent renal cysts. ? Stomach and Bowel:? Stomach, small bowel loops, and colon are unremarkable.? Numerous fluid-filled loops of nondistended, non inflamed appearing small bowel.? Moderate amount of fecal material seen throughout the colon. Peritoneum:? No abnormal intraperitoneal fluid.? No free air.? ? Ventral Wall: ? No hernias.? Abdominal Nodes:? No retroperitoneal or mesenteric adenopathy by size criteria.? Vessels:? Aorta and inferior vena cava are normal in size.? ? PELVIS: Pelvic Organs:? Unremarkable.? ? Bladder: Urinary bladder thickness appears normal for degree of distention. No perivesicular inflammatory stranding. Pelvic Nodes: No enlarged lymph nodes.? Miscellaneous: No hernias are seen. ? ? ? Bones: No acute vertebral body compression fractures. Multilevel spondylitic changes throughout the imaged spine.? No suspicious osseous lesions.? Dextroscoliosis. ? ? IMPRESSION: ? 1. Numerous fluid-filled loops of small bowel likely representing enteritis either infectious or inflammatory in etiology.? No evidence for bowel obstruction. ? 2. Moderate amount of fecal material seen throughout the colon which may represent constipation. MDM Narrative Medical decision making narrative: Patient does have a benign exam. Her labs are unremarkable. CT scan consistent with enteritis. No acute surgical findings. No indication for admission to the hospital. She was well hydrated. She is leaving for [place] next week. She is being treated for breast cancer with tamoxifen. Based on this we will do a cour se of antibiotics. We discussed risks and benefits of this. She was given return precautions. She expressed understanding and agreement. Discharge Plan Departure Patient Disposition: Home Clinical Impression: Enteritis Instructions: DI for Enteritis Activity Restrictions/Additional Instructions: Recommend that you continue to take all of your medications as directed. I also recommend that you contact your oncologist for follow-up. Return to the emergency department for new or worsening symptoms. Prescriptions: New ciprofloxacin HCl [Cipro] 500 mg tablet 500 mg PO BID 3 Days Qty: 6 0RF No Action travoprost [Travatan Z] 0.004 % drops EYE-BOTH Qty: 0 Rx Instructions: one drop both eyes daily estradiol 0.01 % (0.1 mg/gram) cream 0.5 appful vaginal 2XW Qty: 42.5 3RF Rx Instructions: Apply cream once a day for 2 weeks and then twice a week after that. tamoxifen 10 mg tablet 10 mg PO losartan 25 mg tablet 25 mg PO Patient Comments: TAKE ONE TABLET BY MOUTH ONE TIME DAILY cholestyramine (with sugar) 4 gram powder in packet 4 ea PO calcium carbonate [Calcium 600] 600 mg calcium (1,500 mg) tablet 600 mg PO DAILY vitamin K2 45 mcg capsule 45 mcg PO DAILY cholecalciferol (vitamin D3) 50 mcg (2,000 unit) capsule 50 mcg PO DAILY vitamin B complex [B Complex-Vitamin B12] Tablet 1 tab PO DAILY vitamin E (dl, acetate) 45 mg (100 unit) capsule 45 mg PO DAILY magnesium mal, threon, chelate 200 mg magnesium/scoop powder PO green tea leaf extract Capsule PO Probiotic 3 billion cell capsule 3,000 mmu cells PO DAILY Rx Instructions: administer with a meal milk thistle 150 mg capsule 150 mg PO BID Rx Instructions: give with meal/snack famotidine 20 mg tablet 20 mg PO BID Simbrinza 1-0.2 % drops,suspension 1 drop EYE-BOTH BID Referrals: Nick Hill ARNP [Primary Care Provider] - Stand Alone Forms: Patient Portal/API
[2023-03-07 10:56] LABS: Add Manual Diff / Slide Review NO; Basophils Absolute Auto 0 /uL (0-100); Basophils Percent Auto 0.9 % (0-2); Eosinophils Absolute Auto 0 /uL (0-450); Eosinophils Percent Auto 0.4 % (2-4); Hemoglobin 13.6 g/dL (12.0-16.0); Lymphocytes Absolute Auto 1000 /uL (1100-4500); Lymphocytes Percent Auto 18.2 % (25-40); Mean Corpuscular Hemoglobin 31.1 PG (26-34); Mean Corpuscular Volume 91.7 fL (80-100); Monocytes Absolute Auto 400 /uL (0-900); Monocytes Percent Auto 6.7 % (3-14); Neutrophils Absolute Auto 3900 /uL (1500-7000); Neutrophils Percent Auto 73.8 % (50-75); Platelet Count 208 X10^3/uL (150-400); Red Blood Cell Count 4.36 X10^6/uL (4.0-5.2); Red Cell Distribution Width 13.6 % (11.6-14.8); White Blood Cell Count 5.3 X10^3/uL (4.5-11.0)
[2023-03-07 11:10] LABS: Alanine Aminotransferase 22 IU/L (<35); Albumin 4.2 g/dL (3.5-5.0); Albumin Globulin Ratio 1.4 (1.0-2.8); Alkaline Phosphatase 75 U/L (38-126); Aspartate Aminotransferase 26 IU/L (14-36); BUN Creatinine Ratio 16.9 (6-22); Bilirubin Total 0.6 mg/dL (0.2-1.3); Blood Urea Nitrogen 12 mg/dL (7-17); Calcium 9.4 mg/dL (8.4-10.2); Carbon Dioxide 27 mmol/L (22-32); Chloride 104 mmol/L (98-107); Estimated Glomerular Filt Rate > 60 mL/min (>60); Globulin 2.9 g/dL (1.7-4.1); Glucose 128 mg/dL (80-110); HEMOLYSIS < 15 (0-50); Lipase 136 U/L (23-300); Potassium 3.9 mmol/L (3.4-5.1); Sodium 136 mmol/L (137-145); Total Protein 7.1 g/dL (6.3-8.2)
== END 2023-03-07 12:46 | disposition home or self-care (01) ==
PROVIDERS: Emergency Provider Emergency Medicine; Family Provider Registered Nurse Diabetes Educator; PCP Registered Nurse Diabetes Educator
DX: K52.9 Noninfective gastroenteritis and colitis, unspecified (principal); R19.7 Diarrhea, unspecified
CPT/HCPCS: 36415; 74177; 80053; 81003; 82656; 83690; 83993; 85025; 99284; Q9967

== ENCOUNTER → 2023-03-22 11:28 | Outpatient (CLI) | payer OTHER, SELFPAY | PROVIDERS: Family Provider Registered Nurse Diabetes Educator; PCP Registered Nurse Diabetes Educator; Referring Provider Internal Medicine; Visit Provider Internal Medicine | DX: R19.7 Diarrhea, unspecified (principal) | CPT/HCPCS: 82710 ==

== ENCOUNTER → 2023-04-14 14:13 | Outpatient (CLI) | payer OTHER, MEDICARE, SELFPAY ==
[2023-04-14 16:07] LABS: Amylase 107 U/L (30-110)
== END ==
PROVIDERS: Family Provider Registered Nurse Diabetes Educator; PCP Registered Nurse Diabetes Educator; Referring Provider Internal Medicine; Visit Provider Internal Medicine
DX: K86.89 Other specified diseases of pancreas (principal)
CPT/HCPCS: 36415; 82150

== ENCOUNTER → 2023-04-26 08:35 | Outpatient (CLI) | payer MEDICARE, SELFPAY ==
--- NOTE | 2023-04-26 | DI.MG.S_ITS ---
UNILATERAL LEFT DIGITAL SCREENING MAMMOGRAM 3D/2D WITH CAD: 04/26/2023 CLINICAL: Routine screening. Personal history of right breast cancer. Comparison is made to exams dated: 02/23/2022 mammogram - [facility], 02/17/2022 mammogram, 04/13/2021 mammogram, and 12/21/2016 mammogram - [facility]. The left breast is heterogeneously dense, which may obscure small masses (category c / 51-75% glandular tissue). Current study was also evaluated with a Computer Aided Detection (CAD) system. No significant masses, calcifications, or other findings are seen in the breast. There has been no significant interval change. IMPRESSION: NEGATIVE There is no mammographic evidence of malignancy. A 1 year screening mammogram is recommended. This exam was interpreted at Station ID: [id number]. NOTE: For mammograms, a report in lay terms will be sent to the patient. Approximately 15% of breast malignancies will not be visualized mammographically. In the management of a palpable breast mass, a negative mammogram must not discourage biopsy of a clinically suspicious lesion. Electronically Signed By: Sundeep morales/[email or web address]:04/26/2023 10:02:39 letter sent: Normal Exam ACR BI-RADS Category 1: Negative [id number]
== END ==
PROVIDERS: Family Provider Registered Nurse Diabetes Educator; PCP Registered Nurse Diabetes Educator; Referring Provider Registered Nurse Diabetes Educator; Visit Provider Registered Nurse Diabetes Educator
DX: Z12.31 Encounter for screening mammogram for malignant neoplasm of breast (principal); Z85.3 Personal history of malignant neoplasm of breast
CPT/HCPCS: 77063; 77067

== ENCOUNTER → 2023-05-10 10:40 | Outpatient (CLI) | payer MEDICARE, SELFPAY ==
[2023-05-10 11:49] LABS: Erythrocyte Sedimentation Rate 4 MM/HR (0-20); HEMOLYSIS 18 (0-50); Iron 149 ug/dL (37-170)
[2023-05-10 11:57] LABS: Alanine Aminotransferase 23 IU/L (<35); Albumin Globulin Ratio 1.5 (1.0-2.8); Alkaline Phosphatase 69 U/L (38-126); Aspartate Aminotransferase 25 IU/L (14-36); BUN Creatinine Ratio 20.3 (6-22); Bilirubin Total 0.8 mg/dL (0.2-1.3); Blood Urea Nitrogen 13 mg/dL (7-17); C-Reactive Protein Quant < 0.5 mg/dL (<1.0); Calcium 9.4 mg/dL (8.4-10.2); Carbon Dioxide 27 mmol/L (22-32); Chloride 103 mmol/L (98-107); Estimated Glomerular Filt Rate > 60 mL/min (>60); Globulin 2.7 g/dL (1.7-4.1); Glucose 146 mg/dL (80-110); HEMOLYSIS 18 (0-50); Potassium 4.1 mmol/L (3.4-5.1); Sodium 136 mmol/L (137-145); Total Protein 6.7 g/dL (6.3-8.2)
[2023-05-10 12:02] LABS: Percent Iron Saturation 51 % (15-50); Total Iron Binding Capacity 291 ug/dL (265-497); Transferrin 257 mg/dL (206-381)
[2023-05-10 12:07] LABS: Free T3, Triiodothyronine Free 3.78 pg/mL (2.77-5.27)
[2023-05-10 12:14] LABS: Hemoglobin A1C% w Est Avg Glu 5.5 % (4.0-6.0)
[2023-05-10 12:21] LABS: TSH w/ Reflex to FT4 0.82 uIU/mL (0.47-4.68)
[2023-05-10 12:27] LABS: Ferritin 30 ng/mL (11-264)
[2023-05-10 12:58] LABS: Folate 15.7 ng/mL (2.76-20.0); Vitamin B12 877 pg/mL (239-931)
[2023-05-11 07:13] LABS: Thyroid Peroxidase Antibodies <9 IU/mL (0-34)
== END ==
PROVIDERS: Family Provider Registered Nurse Diabetes Educator; PCP Registered Nurse Diabetes Educator; Referring Provider Internal Medicine; Visit Provider Internal Medicine
DX: R73.09 Other abnormal glucose (principal); I35.1 Nonrheumatic aortic (valve) insufficiency; K86.81 Exocrine pancreatic insufficiency
CPT/HCPCS: 36415; 80053; 82542; 82607; 82728; 82746; 83036; 83540; 83550; 84443; 84481; 85651; 86140; 86376

== ENCOUNTER → 2023-05-23 06:47 | Outpatient (CLI) | payer MEDICARE, SELFPAY ==
[2023-05-23 09:12] LABS: Cholesterol 155 mg/dL (140-199); Triglycerides 45 mg/dL (35-150)
[2023-05-23 09:20] LABS: HDL Cholesterol 120 mg/dL (40-60); LDL Cholesterol Calculated 26 mg/dL (<100)
[2023-05-25 07:21] LABS: Insulin Level Total 4.4 uIU/mL (2.6-24.9)
== END ==
PROVIDERS: Family Provider Registered Nurse Diabetes Educator; PCP Registered Nurse Diabetes Educator; Referring Provider Internal Medicine; Visit Provider Internal Medicine
DX: K86.81 Exocrine pancreatic insufficiency (principal)
CPT/HCPCS: 36415; 80061; 82542; 83525

== ENCOUNTER 2023-06-11 02:28 | Emergency (ER) | payer OTHER, SELFPAY ==
[2023-06-11] VITALS (7 sets, daily range): BP systolic 134–189; BP diastolic 63–86; PULSE 72–93; RESP 18; TEMP 36.8; O2SAT 95–98; BMI 17.5
--- NOTE | 2023-06-11 02:37 | DI.CT.S_ITS ---
PROCEDURE: CT ABDOMEN PELVIS W CON INDICATIONS: Diffuse abdominal pain, c/o pancreatitis TECHNIQUE: After the administration of intravenous contrast, axial sections acquired from the lung bases to the pubic symphysis. Coronal and sagittal reformats were performed. For radiation dose reduction, the following was used: automated exposure control, adjustment of mA and/or kV according to patient size. COMPARISON: [facility], US, US PELVIC COMPLETE, 09/22/2022, 13:49. [facility], CT, CT ABDOMEN PELVIS W CON, 03/07/2023, 11:41. FINDINGS: Image quality: Diagnostic. Lower Chest: Moderate wall thickening can be seen involving the distal esophagus. ABDOMEN: Liver: No solid mass. Gallbladder: No radiopaque gallstones or wall thickening. Biliary ducts: No biliary dilation. Pancreas: In this patient with this given history, scrutiny is given to pancreas. Minimal inflammatory change can be seen adjacent to the pancreas. The pancreatic duct does not appear dilated. The pancreas enhances normally, without necrotic areas. No peripancreatic fluid collections are seen. There is a mild amount of free fluid seen within the retroperitoneum superiorly. Spleen: Size is within normal limits. Adrenal Glands: No adrenal nodules. Kidneys and Ureters: No hydronephrosis. No solid mass. No complex renal cystic lesion which requires follow up. Stomach and Bowel: There is a moderate amount of stool seen, particularly within the proximal colon. Mild distal colonic diverticulosis is seen, without findings active diverticulitis. No dilated loops of small bowel are seen. No appendix (either normal or abnormal) is identified on this study. The stomach is decompressed at the time of this study, limiting its evaluation. Peritoneum: No significant ascites is seen. No free air. Ventral Wall: No hernia. Abdominal Nodes: No retroperitoneal or mesenteric adenopathy by size criteria. Vessels: Aorta and inferior vena cava are normal in size. PELVIS: Pelvic Organs: The uterus appears normal for age. No adnexal masses are seen. Bladder: Unremarkable. Pelvic Nodes: No enlarged lymph nodes. Miscellaneous: No inguinal hernias are seen. Bones: No aggressive osseous abnormality. Moderate dextroconvex thoracolumbar scoliosis is seen. Generalized degenerative changes are seen. IMPRESSION: There is a minimal amount of inflammatory change seen adjacent to the pancreas. A mild amount of free fluid seen within the retroperitoneum superiorly. These imaging findings are consistent with pancreatitis. No findings of pancreatic necrosis or pancreatic pseudocyst can be seen. There is a moderate amount of stool seen within the colon. Please correlate with an underlying history of constipation. There is moderate wall thickening seen involving the distal esophagus. Please correlate with esophagitis. Additional findings: Moderate dextroconvex scoliosis Note: No significant discrepancy from the preliminary report. Dictated by: Jose Tabares M.D. on 06/11/2023 at 8:17 Approved by: Jose Tabares M.D. on 06/11/2023 at 8:25
--- NOTE | 2023-06-11 02:50 | ED_ITS ---
HPI - Abdominal Pain General Chief Complaint: Abdominal Pain Stated Complaint: Acute Pancreatitis/Endo done yesterday Time Seen by Provider: 06/11/23 02:29 Source: patient Mode of arrival: Ambulatory History of Present Illness HPI narrative: 67-year-old female who presents with diffuse upper abdominal pain since 06/09 post endoscopy/pancreatic cyst biopsy. Patient states that she did not have pain prior to the procedure. Pain is described is a throbbing ache it is worse with palpation. Tylenol use for symptom relief has been unsuccessful in controlling patient's pain. Patient reports a history of exocrine pancreatic insufficiency which prompted imaging and observation of pancreatic cyst, requiring biopsy. Nausea, but no vomiting reported. Patient reports being in her usual state of health prior to symptom onset/procedure. No other complaints or associated symptoms noted. Patient arrives via private vehicle, ambulatory awake, alert, oriented x3, in no apparent distress and maintaining her own airway. Related Data Home Medications Medication Instructions Recorded Confirmed brinzolamide 1 %-brimonidine 0.2 % 1 drop EYE-BOTH BID 11/14/19 05/22/23 eye drops,suspension (Simbrinza) travoprost 0.004 % eye drops EYE-BOTH ##0 12/03/20 05/22/23 (Travatan Z) calcium carbonate 600 mg calcium 600 mg PO DAILY 10/26/22 05/22/23 (1,500 mg) tablet (Calcium) cholecalciferol (vitamin D3) 50 50 mcg PO DAILY 10/26/22 05/22/23 mcg (2,000 unit) capsule losartan 25 mg tablet 25 mg PO 10/26/22 05/22/23 magnesium mal, threon, chelate mg PO 10/26/22 05/22/23 vitamin B complex (B 1 tab PO DAILY 10/26/22 05/22/23 Complex-Vitamin B12 tablet) vitamin E (dl, acetate) 45 mg (100 45 mg PO DAILY 10/26/22 05/22/23 unit) capsule vitamin K2 45 mcg capsule 45 mcg PO DAILY 10/26/22 05/22/23 milk thistle 150 mg capsule 150 mg PO DAILY 03/13/23 05/22/23 [id number] 2 cap PO TID 05/22/23 05/22/23 24,000-76,000-120,000 unit capsule,delayed rel (Creon) Previous Rx's Medication Instructions Recorded flash glucose scanning reader #1 ea 05/09/23 (FreeStyle Kt 14 Day [place]) flash glucose sensor (FreeStyle #1 ea 05/09/23 Kt 14 Day Sensor kit) hydromorphone 2 mg tablet 2 mg PO Q4-6H PRN pain #14 tabs 06/11/23 (Dilaudid) ondansetron HCl 4 mg tablet 4 mg PO TID PRN nausea and 06/11/23 vomiting 3 days #14 tabs Allergies Allergy/AdvReac Type Severity Reaction Status Date / Time No Known Drug Allergies Allergy Verified 05/22/23 09:44 Review of Systems Review of Systems Narrative: See HPI for pertinent positives, otherwise review of systems negative Patient History Medical History Exocrine pancreatic insufficiency Genitourinary syndrome of menopause Essential hypertension Adjustment disorder with mixed anxiety and depressed mood Adjustment insomnia Adenocarcinoma of right breast Breast mass, right Nonrheumatic aortic (valve) insufficiency Impaired fasting blood sugar Scoliosis Osteoporosis (~2005) Chicken pox (~1958) Glaucoma (~2004) Kidney stones (~1996) Intermittent palpitations Family History Father Stroke Mother Cancer Sister Hypertension Grandfather History of heart disease Social History Smoking Status: Never smoker second hand exposure: Yes ( CHILD) alcohol intake: current substance use type: does not use Smoking Status: Never smoker alcohol intake frequency: 0-2 drinks per day Substance Use Type: does not use Exam Narrative Exam Narrative: General:? Awake, alert, lying comfortably in bed during both exam and interview and in no apparent distress HEENT:? Normocephalic, atraumatic, pupils equal and reactive to light, trachea midline, neck is supple, normal range of motion Chest:? Normal to inspection, no crepitus, no tenderness Cardiovascular:? 2+ radial bilaterally, regular rhythm/rate. Pulmonary:? Regular respirations, no respiratory distress, lungs clear to auscultation bilateral Abdomen:? Soft, diffuse upper abdominal tenderness, non-distended, no guarding or rebound tenderness, no hernia Back: ?No midline spinal tenderness, normal range of motion :? Exam deferred Skin:? Warm, dry, intact, no rashes Extremities:? No deformities of bilateral upper/lower extremities, non-tender Neuro:? No focal neurological deficits, moving all 4 extremities equally, normal gait, normal speechPsych:? Normal mood, normal affect normal attention Initial Vital Signs Initial Vital Signs: Vital Signs Temperature 98.3 F 06/11/23 02:44 Pulse Rate 93 H 06/11/23 02:44 Respiratory Rate 18 06/11/23 02:44 Blood Pressure 189/84 H 06/11/23 02:44 Pulse Oximetry 95 06/11/23 02:44 Oxygen Delivery Method Room Air 06/11/23 02:44 Course Course Course Narrative: See MDM Orders Ordered: ED Orders 06/11/23 02:37 CT abdomen pelvis w con Stat 06/11/23 03:00 CBC Auto Diff [Complete Blood Count AUTO DIFF] Stat CMP [Comprehensive Metabolic Panel] Stat Lipase Stat 06/11/23 04:30 Urinalysis and Microscopic Stat Urine Culture Stat Discontinued Medications Hydromorphone HCl (Hydromorphone 0.5 Mg Inj) 0.5 mg IV NOW ONE Stop: 06/11/23 03:26 Last Admin: 06/11/23 03:39 Dose: 0.5 mg Documented By: TOD Hydromorphone HCl (Hydromorphone 0.5 Mg Inj) 0.5 mg IV NOW ONE Stop: 06/11/23 04:39 Last Admin: 06/11/23 04:45 Dose: 0.5 mg Documented By: TOD Sodium Chloride (Normal Saline 0.9%) 1,000 mls @ 1,000 mls/hr IV BOLUS ONE Stop: 06/11/23 03:48 Last Infusion: 06/11/23 04:16 Dose: Infused Documented By: Admin: 06/11/23 03:02 Dose: 1,000 mls/hr Documented By: TOD Morphine Sulfate (Morphine 2 Mg/Ml Inj) 2 mg IV NOW ONE Stop: 06/11/23 02:50 Last Admin: 06/11/23 03:03 Dose: 2 mg Documented By: TOD Ondansetron HCl (Ondansetron 4 Mg/2 Ml Inj) 4 mg IV NOW ONE Stop: 06/11/23 03:26 Last Admin: 06/11/23 03:30 Dose: 4 mg Documented By: TOD Ondansetron HCl (Ondansetron 4 Mg Odt Prepack) 1 bottle MISC DIRECTED ONE Stop: 06/11/23 04:40 Last Admin: 06/11/23 04:45 Dose: 1 bottle Documented By: TOD Vital Signs Vital signs: Vital Signs - 8 hr 06/11/23 02:44 06/11/23 03:24 06/11/23 03:30 Temperature 98.3 F Pulse Rate 93 H 91 H Respiratory Rate 18 Blood Pressure 189/84 H 187/86 H Pulse Oximetry 95 98 Oxygen Delivery Method Room Air 06/11/23 03:30 06/11/23 04:00 06/11/23 04:24 Temperature Pulse Rate 90 90 84 Respiratory Rate Blood Pressure Pulse Oximetry 97 95 96 Oxygen Delivery Method 06/11/23 04:24 06/11/23 04:30 06/11/23 04:30 Temperature Pulse Rate 80 Respiratory Rate Blood Pressure 147/70 H 156/75 H Pulse Oximetry 96 Oxygen Delivery Method MDM - Abdominal Pain Differential Diagnosis Differential diagnosis: Likely abdominal pain, constipation, gastroenteritis, pancreatitis and small bowel obstruction Lab Data Lab results narrative: Hyponatremia and hyperglycemia noted along with markedly elevated lipase consistent with pancreatitis. Urinalysis appears to be contaminated with squamous epithelia. Patient denies urinary symptoms 06/11/23 03:00 06/11/23 03:00 Labs: Lab Results 06/11/23 06/11/23 Range/Units 03:00 04:30 WBC 9.7 (4.5-11.0) X10^3/uL RBC 4.21 (4.0-5.2) X10^6/uL Hgb 13.0 (12.0-16.0) g/dL Hct 37.7 (36-46) % MCV 89.6 (80-100) fL MCH 30.9 (26-34) PG MCHC 34.5 (30-36) % RDW 13.4 (11.6-14.8) % Plt Count 209 (150-400) X10^3/uL Neut % (Auto) 89.3 H (50-75) % Lymph % (Auto) 5.3 L (25-40) % [place] % (Auto) 5.0 (3-14) % Eos % (Auto) 0.1 L (2-4) % Baso % (Auto) 0.3 (0-2) % Neut # (Auto) 8600 H (4782-4940) /uL Lymph # (Auto) 500 L (9388-5557) /uL [place] # (Auto) 500 (0-900) /uL Eos # (Auto) 0 (0-450) /uL Baso # (Auto) 0 (0-100) /uL Sodium 132 L (137-145) mmol/L Potassium 3.8 (3.4-5.1) mmol/L Chloride 101 (98-107) mmol/L Carbon Dioxide 23 (22-32) mmol/L BUN 13 (7-17) mg/dL Creatinine 0.50 L (0.52-1.04) mg/dL Estimated GFR > 60 (>60) mL/min BUN/Creatinine Ratio 26.0 H (6-22) Glucose 133 H (80-110) mg/dL Calcium 9.0 (8.4-10.2) mg/dL Total Bilirubin 1.0 (0.2-1.3) mg/dL AST 26 (14-36) IU/L ALT 25 (<35) IU/L Alkaline Phosphatase 81 (38-126) U/L Total Protein 6.9 (6.3-8.2) g/dL Albumin 3.9 (3.5-5.0) g/dL Globulin 3.0 (1.7-4.1) g/dL Albumin/Globulin Ratio 1.3 (1.0-2.8) Lipase 25881 H (23-300) U/L Urine Color Yellow Urine Appearance Clear Urine pH 7.0 (4.5-8.0) Ur Specific [place] 1.015 (1.000-1.035) Urine Protein Negative (Negative) Urine Glucose (UA) Negative (Negative) g/dL Urine Ketones 2+ H (NEGATIVE) Urine Occult Blood 1+ H (Negative) Urine Nitrate Negative (Negative) Urine Bilirubin Negative (NEGATIVE) Urine Urobilinogen 0.2 (0.2) E.U./dL Ur Leukocyte Esterase 2+ H (NEGATIVE) Urine RBC 1-5/hpf (0-5/HPF) Urine WBC 10-30/hpf H (0-5/HPF) Ur Squamous Epith Cells 5-10 /hpf H (0-5/HPF) Urine Bacteria Moderate (10-30) H (None) Urine Mucus 1+ H (Negative) Ur Culture Indicated? Specimen cultured MDM Narrative Medical decision making narrative: Patient presents with upper abdominal pain, status post pancreatic biopsy after endoscopy. Current vital signs are within normal limits/nonactionable. Patient is afebrile. Pulse oximetry 96% on room air, normal pulse oximetry. Lipase elevated otherwise diagnostic laboratory testing within normal limits/non actionable. Urinalysis shows bacteria and pyuria. Patient denies urinary symptoms. IV fluids given along with morphine and Dilaudid for pain control. Patient reports feeling much better after Dilaudid administration. Imaging shows fluid and mesenteric hypoattenuation in the epigastric region and left lower quadrant that is suggestive of inflammatory/infectious process that could be related to pancreatitis as dictated by radiology. Constipation also noted. Markedly elevated lipase and imaging findings are consistent with idiopathic pancreatitis. Discussed findings with patient. Trial of oral pain medication with antiemetics warranted. Patient at this time we will not be treated for infectious pancreatitis with antibiotics as again is likely idiopathic. Return precautions given. Patient encouraged to follow up with both gastroenterology and primary care provider for further evaluation and management. Prescription for Dilaudid and Zofran given. Discharge Plan Departure Patient Disposition: Home Clinical Impression: Acute pancreatitis Qualifiers: Pancreatitis type: idiopathic Acute pancreatitis complication: no infection or necrosis Qualified Code(s): K85.00 - Idiopathic acute pancreatitis without necrosis or infection Instructions: DI for Pancreatitis Activity Restrictions/Additional Instructions: Please return to the emergency department immediately if symptoms should change or worsen. Prescriptions: New hydromorphone [Dilaudid] 2 mg tablet 2 mg PO Q4-6H PRN (Reason: pain) Qty: 14 0RF ondansetron HCl 4 mg tablet 4 mg PO TID PRN (Reason: nausea and vomiting) 3 Days Qty: 14 0RF Continued travoprost [Travatan Z] 0.004 % drops EYE-BOTH Qty: 0 Rx Instructions: one drop both eyes daily (DME) FreeStyle Kt 14 Day [place] Misc See Rx Instructions .Route Qty: 1 0RF Rx Instructions: As directed (DME) FreeStyle Kt 14 Day Sensor Kit See Rx Instructions .Route Qty: 1 0RF Rx Instructions: As directed losartan 25 mg tablet 25 mg PO Patient Comments: TAKE ONE TABLET BY MOUTH ONE TIME DAILY calcium carbonate [Calcium 600] 600 mg calcium (1,500 mg) tablet 600 mg PO DAILY vitamin K2 45 mcg capsule 45 mcg PO DAILY cholecalciferol (vitamin D3) 50 mcg (2,000 unit) capsule 50 mcg PO DAILY vitamin B complex [B Complex-Vitamin B12] Tablet 1 tab PO DAILY vitamin E (dl, acetate) 45 mg (100 unit) capsule 45 mg PO DAILY magnesium mal, threon, chelate 200 mg magnesium/scoop powder PO milk thistle 150 mg capsule 150 mg PO DAILY Rx Instructions: give with meal/snack Simbrinza 1-0.2 % drops,suspension 1 drop EYE-BOTH BID Creon 24,000-76,000 -120,000 unit capsule,delayed release(DR/EC) 2 cap PO TID Rx Instructions: administer with meals and/or snacks Referrals: Danny Estrada MD [Non-Staff] - As soon as possible Nick Hill ARNP [Primary Care Provider] - As soon as possible Stand Alone Forms: Patient Portal/API
[2023-06-11] MEDS: SODIUM CHLORIDE 0.9% 1,000 ML 1000 ML IV (03:02)
[2023-06-11] MEDS: MORPHINE 2 MG/ML INJ IV (03:03)
[2023-06-11 03:13] LABS: Add Manual Diff / Slide Review NO; Basophils Absolute Auto 0 /uL (0-100); Basophils Percent Auto 0.3 % (0-2); Eosinophils Absolute Auto 0 /uL (0-450); Eosinophils Percent Auto 0.1 % (2-4); Hematocrit 37.7 % (36-46); Lymphocytes Absolute Auto 500 /uL (1100-4500); Lymphocytes Percent Auto 5.3 % (25-40); Mean Corpuscular HGB Conc 34.5 % (30-36); Mean Corpuscular Hemoglobin 30.9 PG (26-34); Mean Corpuscular Volume 89.6 fL (80-100); Monocytes Absolute Auto 500 /uL (0-900); Neutrophils Absolute Auto 8600 /uL (1500-7000); Neutrophils Percent Auto 89.3 % (50-75); Platelet Count 209 X10^3/uL (150-400); Red Blood Cell Count 4.21 X10^6/uL (4.0-5.2); Red Cell Distribution Width 13.4 % (11.6-14.8); White Blood Cell Count 9.7 X10^3/uL (4.5-11.0)
[2023-06-11] MEDS: ONDANSETRON 4 MG/2 ML INJ (03:28)
[2023-06-11] MEDS: ONDANSETRON 4 MG/2 ML INJ IV (03:30)
[2023-06-11 03:33] LABS: Alanine Aminotransferase 25 IU/L (<35); Albumin 3.9 g/dL (3.5-5.0); Albumin Globulin Ratio 1.3 (1.0-2.8); Alkaline Phosphatase 81 U/L (38-126); Aspartate Aminotransferase 26 IU/L (14-36); Blood Urea Nitrogen 13 mg/dL (7-17); Carbon Dioxide 23 mmol/L (22-32); Chloride 101 mmol/L (98-107); Estimated Glomerular Filt Rate > 60 mL/min (>60); Glucose 133 mg/dL (80-110); HEMOLYSIS < 15 (0-50); Potassium 3.8 mmol/L (3.4-5.1); Sodium 132 mmol/L (137-145); Total Protein 6.9 g/dL (6.3-8.2)
[2023-06-11] MEDS: HYDROMORPHONE 0.5 MG INJ IV ×2 (03:39→04:45)
[2023-06-11 03:56] LABS: Lipase 10249 U/L (23-300)
[2023-06-11 04:34] LABS: Appearance Urine UA CLEAR; Bilirubin Urine UA NEGATIVE (NEGATIVE); Color Urine UA YELLOW; Glucose Urine UA NEGATIVE (Negative); Ketones Urine UA 2+ (NEGATIVE); Leukocyte Esterase Urine UA 2+ (NEGATIVE); Nitrite Urine UA NEGATIVE (Negative); Occult Blood Urine UA 1+ (Negative); Protein Urine UA NEGATIVE (Negative); Specific Gravity Urine UA 1.015 (1.000-1.035); Urobilinogen Urine UA 0.2 E.U./dL (0.2)
[2023-06-11 04:41] LABS: Bacteria Urine Moderate (10-30); RBC Urine 1-5/HPF (0-5/HPF)
[2023-06-11 04:42] LABS: Culture Indicated Urine Specimen Cultured; Mucus Urine 1+ (Negative); Squamous Epithelial Cell Urine 5-10 /HPF (0-5/HPF); WBC Urine 10-30/HPF (0-5/HPF)
[2023-06-11] MEDS: ONDANSETRON 4 MG ODT PREPACK 1 BOTTLE MISC (04:45)
== END 2023-06-11 05:17 | disposition home or self-care (01) ==
PROVIDERS: Emergency Provider Emergency Medicine; Family Provider Registered Nurse Diabetes Educator; PCP Registered Nurse Diabetes Educator
DX: K85.00 Idiopathic acute pancreatitis without necrosis or infection (principal)
CPT/HCPCS: 36415; 74177; 80053; 81001; 83690; 85025; 87086; 96361; 96374; 96375; 96376; 99284; J1170; J2270; J2405; Q9967

== ENCOUNTER → 2023-06-20 14:26 | Outpatient (CLI) | payer OTHER, SELFPAY ==
[2023-06-22 18:15] LABS: Zinc 72 ug/dL (44-115)
[2023-06-23 11:10] LABS: Alpha-Tocopherol 9.8 mg/L (9.0-29.0)
[2023-06-24 10:22] LABS: Vitamin B1 150.1 nmol/L (66.5-200.0)
[2023-06-26 05:58] LABS: Vitamin A 48.6 ug/dL (22.0-69.5)
== END ==
PROVIDERS: Family Provider Registered Nurse Diabetes Educator; PCP Registered Nurse Diabetes Educator; Referring Provider Internal Medicine; Visit Provider Internal Medicine
DX: K86.81 Exocrine pancreatic insufficiency (principal)
CPT/HCPCS: 36415; 84425; 84446; 84590; 84630

== ENCOUNTER → 2023-10-28 07:30 | Outpatient (CLI) | payer OTHER, SELFPAY | PROVIDERS: Family Provider Registered Nurse Diabetes Educator; PCP Registered Nurse Diabetes Educator; Visit Provider Registered Nurse | DX: R30.0 Dysuria (principal) | CPT/HCPCS: 87086 ==

== ENCOUNTER → 2023-10-31 09:32 | Outpatient (CLI) | payer MEDICARE, SELFPAY | PROVIDERS: Family Provider Registered Nurse Diabetes Educator; PCP Registered Nurse Diabetes Educator; Visit Provider Registered Nurse Diabetes Educator | DX: N39.41 Urge incontinence (principal); R39.15 Urgency of urination | CPT/HCPCS: 87086 ==

== ENCOUNTER → 2024-03-15 09:34 | Outpatient (CLI) | payer MEDICARE, SELFPAY ==
--- NOTE | 2024-03-15 09:35 | DI.MG.S_ITS ---
UNILATERAL LEFT DIGITAL DIAGNOSTIC MAMMOGRAM 3D/2D: 03/15/2024 CLINICAL: Personal HX of Right breast cancer. Comparison is made to exams dated: 04/26/2023 mammogram, 02/17/2022 mammogram, 04/13/2021 mammogram, and 12/21/2016 mammogram - [facility]. The breasts are extremely dense, which lowers the sensitivity of mammography (category d />75% glandular tissue). No significant masses, calcifications, or other findings are seen in the breast. There has been no significant interval change. IMPRESSION: NEGATIVE There is no mammographic evidence of malignancy. A 1 year screening mammogram is recommended. Future imaging is recommended as follows: 04/26/2024 screening mammogram. This exam was interpreted at Station ID: [id number]. NOTE: For mammograms, a report in lay terms will be sent to the patient. Approximately 15% of breast malignancies will not be visualized mammographically. In the management of a palpable breast mass, a negative mammogram must not discourage biopsy of a clinically suspicious lesion. Electronically Signed By: Sundeep morales/[email or web address]:03/15/2024 10:00:51 letter sent: Normal Exam ACR BI-RADS Category 1: Negative
== END ==
PROVIDERS: Family Provider Registered Nurse Diabetes Educator; PCP Registered Nurse Diabetes Educator; Referring Provider Internal Medicine Hematology & Oncology; Visit Provider Internal Medicine Hematology & Oncology
DX: Z85.3 Personal history of malignant neoplasm of breast (principal); Z08 Encounter for follow-up examination after completed treatment for malignant neoplasm; R92.333 Mammographic heterogeneous density, bilateral breasts
CPT/HCPCS: 77065; G0279

== ENCOUNTER → 2024-07-09 14:51 | Outpatient (CLI) | payer MEDICARE, SELFPAY | PROVIDERS: Family Provider Registered Nurse Diabetes Educator; PCP Registered Nurse Diabetes Educator; Visit Provider Nurse Practitioner Family | DX: M54.50 Low back pain, unspecified (principal) | CPT/HCPCS: 87086 ==

== ENCOUNTER → 2024-07-09 14:57 | Outpatient (CLI) | payer MEDICARE, SELFPAY ==
--- NOTE | 2024-07-09 14:59 | DI.RAD.S_ITS ---
PROCEDURE: XR KUB INDICATIONS: Hematuria TECHNIQUE: One view of the abdomen acquired. COMPARISON: None. FINDINGS: Stool gas pattern: Normal-no evidence of ileus or obstruction. No free intraperitoneal or extraperitoneal air. No gross evidence of ascites Soft tissues: 2 small calcifications both less than 3 mm, overlying the distal left ureter, are more likely phleboliths rather than stone Organs: Negative IMPRESSION: Left pelvic calcifications please see above Dictated by: Jack Maldonado M.D. on 07/10/2024 at 11:24 Approved by: Jack Maldonado M.D. on 07/10/2024 at 11:25
--- NOTE | 2024-07-09 14:59 | DI.RAD.S_ITS ---
PROCEDURE: XR LUMBAR SPINE 2-3V INDICATIONS: Lumbar pain TECHNIQUE: 3 views of the lumbar spine were acquired. COMPARISON: [facility], , XR LUMBAR SPINE 2-3V, 05/18/2022, 13:50. FINDINGS: Lumbar spine curvature and alignment: Moderate dextroscoliosis of lower thoracic and lumbar spine is unchanged. Bones: Mild left lateral L1-L2 compression fractures are stable Disc spaces: Moderate T12-L1 through L2-3 degenerative disc disease appreciated. There is moderate L4-5 and L5-S1 degenerative disc disease Soft tissues: No soft tissue swelling, calcification or mass. IMPRESSION: Degeneration Dictated by: Jack Maldonado M.D. on 07/10/2024 at 11:12 Approved by: Jack Maldonado M.D. on 07/10/2024 at 11:14
== END ==
LOC: RAD 14:59
PROVIDERS: Family Provider Registered Nurse Diabetes Educator; PCP Registered Nurse Diabetes Educator; Referring Provider Nurse Practitioner Family; Visit Provider Nurse Practitioner Family
DX: R31.9 Hematuria, unspecified (principal); M51.35 Other intervertebral disc degeneration, thoracolumbar region; M51.360 Other intervertebral disc degeneration, lumbar region with discogenic back pain only; M51.370 Other intervertebral disc degeneration, lumbosacral region with discogenic back pain only; M48.56XA Collapsed vertebra, not elsewhere classified, lumbar region, initial encounter for fracture; M41.9 Scoliosis, unspecified
CPT/HCPCS: 72100; 74018; 87086

== ENCOUNTER → 2024-07-17 15:19 | Outpatient (CLI) | payer MEDICARE, SELFPAY ==
--- NOTE | 2024-07-17 15:20 | DI.RAD.S_ITS ---
PROCEDURE: XR DEXA AXIAL SKELETON INDICATIONS: reeval COMPARISON: [facility], , XR DEXA AXIAL SKELETON, 01/09/2020, 10:38. [facility], , DEXA AXIAL SKELETON, 04/21/2016, 15:07. FINDINGS: Lumbar Spine: L1-L4. Bone mineral density 0.667 g/cm2, T score -3.5. Left Femoral Neck: Bone mineral density 0.455 g/cm2, T score -3.6. Left Hip: Bone mineral density 0.590 g/cm2, T score -2.9. Fracture Risk Calculation (when applicable): 10-year fracture risk of a major osteoporotic fracture 29 percent and of a hip fracture 12 percent. (T score greater or equal to -1.0 to: NORMAL) (T score from -1.1 to -2.4: OSTEOPENIA) (T score less than or equal to -2.5: OSTEOPOROSIS) IMPRESSION: Osteoporosis. Follow-up guidelines as follows: Osteoporosis: Consider a repeat DEXA and Vertebral Fracture Assessment (VFA) exam in 2 years or sooner if medically necessary, to reassess this patient's status. Osteopenia: Consider a repeat DEXA in 2-3 years to reassess this patient's status, or if there is a new clinical indication. Normal: Consider a repeat DEXA in 5 years or sooner, or if there is a new clinical indication. All treatment decisions require clinical judgment and consideration of individual patient factors, including patient preferences, comorbidities, previous drug use, risk factors not captured in the FRAX model (e.g., frailty, falls, vitamin D deficiency, increased bone turnover, interval significant decline in bone density ) and possible under- or over-estimation of fracture risk by FRAX. In addition, the NOF Guide recommends that FDA-approved medical therapies be considered in postmenopausal women and men age >= 50 years with a: * Hip or vertebral (clinical or morphometric) fracture * T-score of <=-2.5 at the spine or hip * Ten-year fracture probability by FRAX of >= 3% for hip fracture or >=20% for major osteoporotic fracture. Dictated by: Sundeep Tolentino M.D. on 07/18/2024 at 22:31 Approved by: Sundeep Tolentino M.D. on 07/18/2024 at 22:32
== END ==
LOC: RAD 15:20
PROVIDERS: Family Provider Registered Nurse Diabetes Educator; PCP Registered Nurse Diabetes Educator; Referring Provider Registered Nurse Diabetes Educator; Visit Provider Registered Nurse Diabetes Educator
DX: M81.0 Age-related osteoporosis without current pathological fracture (principal)
CPT/HCPCS: 77080

== ENCOUNTER → 2024-07-22 09:21 | Outpatient (CLI) | payer MEDICARE, SELFPAY ==
[2024-07-22 10:44] LABS: Cholesterol 178 mg/dL (140-199); Triglycerides 56 mg/dL (35-150)
[2024-07-22 10:53] LABS: HDL Cholesterol 135 mg/dL (40-60); LDL Cholesterol Calculated 32 mg/dL (<100)
[2024-07-25 17:08] LABS: C-Telopeptide, Serum 577 pg/mL (.)
== END ==
PROVIDERS: Family Provider Registered Nurse Diabetes Educator; PCP Registered Nurse Diabetes Educator; Referring Provider Registered Nurse Diabetes Educator; Visit Provider Registered Nurse Diabetes Educator
DX: I10 Essential (primary) hypertension (principal); M81.0 Age-related osteoporosis without current pathological fracture
CPT/HCPCS: 36415; 80061; 82523

== ENCOUNTER 2024-10-15 11:30 | Outpatient (RCR) | payer MEDICARE, SELFPAY ==
--- NOTE | 2024-08-01 19:03 | PT.OIE ---
Current Diagnoses Other chronic pain (08/06/24) Thoracogenic scoliosis, thoracolumbar region (08/06/24) Spinal instabilities, lumbar region (08/06/24) Low back pain, unspecified (08/06/24) Past Medical History (Last Updated 07/19/24 @ 12:49 by YESENIA Ridley) Adenocarcinoma of right breast Adjustment disorder with mixed anxiety and depressed mood Adjustment insomnia Breast mass, right Chicken pox (~195) Essential hypertension Exocrine pancreatic insufficiency Fracture, lumbar vertebra, compression Genitourinary syndrome of menopause Glaucoma (~2004) Impaired fasting blood sugar Intermittent palpitations Kidney stones (~1996) Nonrheumatic aortic (valve) insufficiency Osteoporosis (~2005) Prediabetes Scoliosis Visit Care Team Role Provider Type YESENIA Ridley Attending Provider Advanced Curtain Fitter Family Provider Primary Care Provider Referring Provider Specialty: Medical Address: [address] [place] [address], [facility] Email: [email or web address] Physical Therapy Initial Evaluation PT-OP-A Visit Information Start: 07/31/24 13:41 Freq: Status: Active Protocol: Document 08/01/24 17:14 [facility] (Rec: 08/01/24 17:16 [facility] [id number]) Out-Patient Physical Therapy Visit Information Visit Information Visit Type Initial Evaluation Visit Start Time 10:45 Visit Stop Time 11:30 Visit Number 1 Evaluation Information Evaluation Date 08/01/24 PT-OP-B Current Condition Start: 07/31/24 13:41 Freq: Status: Active Protocol: Document 08/01/24 10:45 [facility] (Rec: 08/01/24 11:33 [facility] [id number]) Current Condition History of Current Condition History of Current Condition pt returns to PT with compression fx She notes she drove to [place] at at [place] time and on her return is when her symptoms were worse. She had the dog on her lap during this time and the dog weighs about 30 lbs. It is being recommend to go on Iveniti for osteoporosis 2 injections 1 xm per moth but due to side effects she is worried about taking it. Her pain is intermittent now and her scolioss makes it twist and stick a bit and then it unlocs and its okay again pt descrbes L1-2 left lateral compression fx SHe is trying to sit up at her computer but when she gets up she feels as if she collapses a bit and her back feels locked. Pelvic tilts can feel difficult to do. Treatment Goals Patient/Caregiver Goals pt would like to be able to do her UE arm weights without irritating her back she has 8#, 6#, 5#, and 4# weights at home. Current Functional Impairments (Reported) Functional Limitations- ADL's Pain prevents Johanna from sitting more than one hour, lifting heavy items off the floor, sleep is disturbed from pain Functional Limitations- Other long car rides increase pain PT-OP-C Subjective Start: 07/31/24 13:41 Freq: Status: Active Protocol: Document 08/01/24 10:45 [facility] (Rec: 08/06/24 13:43 [facility] [id number]) Patient Questionnaires Oswestry Low Back Index Oswestry Score 13 Oswestry Impairment 1 to 19% Impaired (Score 1-19) OP-PT Pain Assessment Pain Assessment Grid Paper Pain Assessment Grid Completed Yes Location low back pain Pain Location Details L5/S1 region pain can range from 4-8/10 Scale Used Numeric (0 - 10) Description Aching,Tightness,Throbbing, With Movement Description- Other pain reports a catching type pain in her low back if she moves wrong Frequency Intermittent PT-OP-F Manual Assessment Start: 07/31/24 13:41 Freq: Status: Active Protocol: Document 08/01/24 10:45 [facility] (Rec: 08/06/24 13:43 [facility] [id number]) Manual Assessments Soft Tissue Assessment Soft Tissue Mobility Assessment tightness of the lumbar paraspinals, right sided QL tightness and guarding L>R piriformis, adductor, and iliopsoas tightness PT-OP-J Posture/Palpation/Skin Start: 07/31/24 13:41 Freq: Status: Active Protocol: Document 08/01/24 10:45 [facility] (Rec: 08/06/24 18:56 [facility] [id number]) Palpation Assessment Location L5/S1 Palpation Findings Muscle Guarding,Tenderness Palpation Details muscle guarding of the paraspinals B PT-OP-K Range of Motion Start: 07/31/24 13:41 Freq: Status: Active Protocol: Document 08/01/24 10:45 [facility] (Rec: 08/06/24 18:56 [facility] [id number]) Lumbar Spine Range of Motion Lumbar Spine Active Testing Position Standing Lateral Flexion Left 10 Lateral Flexion Right 15 ROM Limitations Soft Tissue Tightness, Contracture Comments scoliosis with curve to the right pt demonstrates full lumbar flexion rotation and sidebending are guarded and painful PT-OP-M Strength Start: 07/31/24 13:41 Freq: Status: Active Protocol: Document 08/01/24 10:45 [facility] (Rec: 08/06/24 18:59 [facility] [id number]) Trunk Strength Trunk Manual Muscle Testing Flexion 3 Fair Extension 2+ Poor+ Rotation Left 2+ Poor+ Rotation Right 2+ Poor+ Lateral Flexion Left 3 Fair Lateral Flexion Right 3 Fair Core Stabilization Johanna is able to recruit her transverse abdominals but has pain with ASLR B PT-OP-Q Treatments Start: 07/31/24 13:41 Freq: Status: Active Protocol: Document 08/01/24 17:16 [facility] (Rec: 08/01/24 17:17 [facility] [id number]) Therapeutic Exercises Supine Exercises bridges Reps/Minutes x 10 reps piriformis stretch Reps/Minutes hold 60 sec SKTC Reps/Minutes hold 60 sec Other Exercises wag the tail Reps/Minutes x 5 cat cow Reps/Minutes x 10 PT-OP-T Assessment and Plan Start: 07/31/24 13:41 Freq: Status: Active Protocol: Document 08/01/24 10:45 [facility] (Rec: 08/06/24 13:14 [facility] [id number]) Physical Therapy Assessment Rehab Potential Rehabilitation Potential Excellent Evaluation Complexity Number of Personal Factors/Comorbidities 1-2 Number of Body Systems Impaired 3 Clinical Presentation at Evaluation Evolving Impairments Impairments Activity Tolerance,Functional Activities,Functional Mobility ,Pain,ROM,Soft Tissue Mobility ,Strength,Tone Goals 3 Impairment Johanna has questions regarding her home weight training program and needs guidance on how to proceed with her exercises without causing any irritation to her L1-2 compression fracture Hotel Concier[employer] Goal (LTG) Johanna feels independent with her home weight training program LTG Duration 8 weeks 2 Impairment Left >Right sided piriformis, adductor, and iliopsoas tightness and guarding as well as lumbar paraspinal tightness and guarding Short Term Goal (STG) Johanna is educated in stretches for her hips and low back to help reduce tightness and guarding STG Duration 4 weeks [facility] Goal (LTG) Johanna is independent with a home program for ROM and stretching for the low back and hips LTG Duration 8 weeks 1 Impairment Low back pain rated 4-8/10 limiting sitting and standing tolerance and limits sleep [facility] Goal (LTG) Johanna reports a overall reduction in low back pain increasing her sitting and standing tolerance and her ability to sleep without waking due to pain LTG Duration 8 weeks Assessment Summary Assessment Pau is a 68 year old female who presents to PT today with a increase in low back pain that began after taking a car trip to [place] to visit her son and grand kids. She notes she sat in the passenger seat and held her dog who weighs approx 30 lbs in her lap. Once in [place] she did cook pickled meat her grand kids and back pain increased. She has a history of osteoporosis and did undergo a X ray once home. It does show a Left L1- 2 minimal compression fracture . Johanna also has a history of scoliosis (dextro) with curvature to the right and has been seen in our clinic in 2022 for PT for her back. She had undergone breast cancer with a masectomy in March of 2022 prior to starting PT in June. She had been out of her usual exercise routine with cancer treatments and needed assistence getting back into a routine. Johanna notes she did well with PT and has been okay with her back until she took this trip to [place] in May. At this time pain prevents her from lifting heavy weights and she would like to know what is safe for her back with her home exercise program. Her back pain is in the L5-S1 region and can vary from 4-8 on the pain scale. With exam today Johanna is limited with pelvic mobility into a posterior pelvic tilt. She has guarding and tightness of the right QL and lumbar paraspinals and tends to hinge on the L5-S1 in standing. She has tightness in the L>R piriformis, adductors, and iliopsoas. She is limited in lumbar spine mobility. Johanna would benefit from body mechanics training to avoid undo strain to her compression fracture, gentle ROM and stretching routine. Johanna's goals also include going through her weight training program to make sure she is lifting her hand held weights and doing the exercises correctly to avoid strain to her back. Physical Therapy Plan Frequency and Duration Frequency of Treatment 2x/Week Duration of treatment (weeks) 8 Plan of Care Start Date 08/01/24 Plan of Care End Date 10/24/24 Therapeutic Interventions Therapeutic Interventions Home Exercise Program,Manual Therapy,Patient/Caregiver Education,Self-Care/Home Management,Soft Tissue Mobilization,Therapeutic Exercises Next Visit Focus/Plan Next Note Type Treatment Note Next Visit Plan review stretches given at today's visit and progress to pts goals of reviewing her weight routine for UE weight lifting
--- NOTE | 2024-08-01 19:03 | PT.OPPOC ---
Physical, Occupational & Speech Therapy At [facility] Current Diagnoses Other chronic pain (08/06/24) Thoracogenic scoliosis, thoracolumbar region (08/06/24) Spinal instabilities, lumbar region (08/06/24) Low back pain, unspecified (08/06/24) Visit Care Team Role Provider Type YESENIA Ridley Attending Provider Advanced Electronic Imager Family Provider Primary Care Provider Referring Provider Specialty: Medical Address: [address] [place] [address], [facility] Email: [email or web address] Plan Of Care PT-OP-B Current Condition Start: 07/31/24 13:41 Freq: Status: Active Protocol: Document 08/01/24 10:45 [facility] (Rec: 08/01/24 11:33 [facility] [id number]) Current Condition History of Current Condition History of Current Condition pt returns to PT with compression fx She notes she drove to [place] at at [facility] and on her return is when her symptoms were worse. She had the dog on her lap during this time and the dog weighs about 30 lbs. It is being recommend to go on Evenity for osteoporosis 2 injections 1 xm per moth but due to side effects she is worried about taking it. Her pain is intermittent now and her scoliosis makes it twist and stick a bit and then it unlocks and its okay again pt describes L1-2 left lateral compression fx SHe is trying to sit up at her computer but when she gets up she feels as if she collapses a bit and her back feels locked. Pelvic tilts can feel difficult to do. Treatment Goals Patient/Caregiver Goals pt would like to be able to do her UE arm weights without irritating her back she has 8#, 6#, 5#, and 4# weights at home. Current Functional Impairments (Reported) Functional Limitations- ADL's Pain prevents Johanna from sitting more than one hour, lifting heavy items off the floor, sleep is disturbed from pain Functional Limitations- Other long car rides increase pain PT-OP-T Assessment and Plan Start: 07/31/24 13:41 Freq: Status: Active Protocol: Document 08/01/24 10:45 [facility] (Rec: 08/06/24 13:14 [facility] [id number]) Physical Therapy Assessment Rehab Potential Rehabilitation Potential Excellent Evaluation Complexity Number of Personal Factors/Comorbidities 1-2 Number of Body Systems Impaired 3 Clinical Presentation at Evaluation Evolving Impairments Impairments Activity Tolerance,Functional Activities,Functional Mobility ,Pain,ROM,Soft Tissue Mobility ,Strength,Tone Goals 3 Impairment Johanna has questions regarding her home weight training program and needs guidance on how to proceed with her exercises without causing any irritation to her L1-2 compression fracture [facility] Goal (LTG) Johanna feels independent with her home weight training program LTG Duration 8 weeks 2 Impairment Left >Right sided piriformis, adductor, and iliopsoas tightness and guarding as well as lumbar paraspinal tightness and guarding Short Term Goal (STG) Johanna is educated in stretches for her hips and low back to help reduce tightness and guarding STG Duration 4 weeks [facility] Goal (LTG) Johanna is independent with a home program for ROM and stretching for the low back and hips LTG Duration 8 weeks 1 Impairment Low back pain rated 4-8/10 limiting sitting and standing tolerance and limits sleep [facility] Goal (LTG) Johanna reports a overall reduction in low back pain increasing her sitting and standing tolerance and her ability to sleep without waking due to pain LTG Duration 8 weeks Assessment Summary Assessment Johanna is a 68 year old female who presents to PT today with a increase in low back pain that began after taking a car trip to [place] to visit her son and grand kids. She notes she sat in the passenger seat and held her dog who weighs approx 30 lbs in her lap. Once in [place] she did order picker her grand kids and back pain increased. She has a history of osteoporosis and did undergo a X ray once home. It does show a Left L1- 2 minimal compression fracture . Johanna also has a history of scoliosis (dextro) with curvature to the right and has been seen in our clinic in 2022 for PT for her back. She had undergone breast cancer with a mastectomy in March of 2022 prior to starting PT in June. She had been out of her usual exercise routine with cancer treatments and needed assistance getting back into a routine. Johanna notes she did well with PT and has been okay with her back until she took this trip to [place] in May. At this time pain prevents her from lifting heavy weights and she would like to know what is safe for her back with her home exercise program. Her back pain is in the L5-S1 region and can vary from 4-8 on the pain scale. With exam today Johanna is limited with pelvic mobility into a posterior pelvic tilt. She has guarding and tightness of the right QL and lumbar paraspinals and tends to hinge on the L5-S1 in standing. She has tightness in the L>R piriformis, adductors, and iliopsoas. She is limited in lumbar spine mobility. Johanna would benefit from body mechanics training to avoid undo strain to her compression fracture, gentle ROM and stretching routine. Johanna's goals also include going through her weight training program to make sure she is lifting her hand held weights and doing the exercises correctly to avoid strain to her back. Physical Therapy Plan Frequency and Duration Frequency of Treatment 2x/Week Duration of treatment (weeks) 8 Plan of Care Start Date 08/01/24 Plan of Care End Date 10/24/24 Therapeutic Interventions Therapeutic Interventions Home Exercise Program,Manual Therapy,Patient/Caregiver Education,Self-Care/Home Management,Soft Tissue Mobilization,Therapeutic Exercises Next Visit Focus/Plan Next Note Type Treatment Note Next Visit Plan review stretches given at today's visit and progress to pts goals of reviewing her weight routine for UE weight lifting Plan of Care Dates Plan of Care Start Date 08/01/24 Plan of Care End Date 10/24/24 Electronically Signed by: Ana Maloney, PT 08/06/24 1778 If you are in agreement with this Plan of Care, please return a signed and dated copy. I have reviewed this Plan of Care and certify that the skilled therapy services above are required to meet the patient?s needs. Physician Signature Date Printed Name and Credentials Clinical Instructor Signature Printed Name and Credentials
--- NOTE | 2024-08-06 12:51 | PT.OTN ---
Current Diagnoses Other chronic pain (08/06/24) Thoracogenic scoliosis, thoracolumbar region (08/06/24) Spinal instabilities, lumbar region (08/06/24) Low back pain, unspecified (08/06/24) Physical Therapy Treatment Note PT-OP-A Visit Information Start: 07/31/24 13:41 Freq: Status: Active Protocol: Document 08/06/24 09:00 [facility] (Rec: 08/06/24 19:13 [facility] [id number]) Out-Patient Physical Therapy Visit Information Visit Information Visit Type Treatment Note Visit Start Time 09:00 Visit Stop Time 09:45 Visit Number 2 Evaluation Information Evaluation Date 08/01/24 PT-OP-B Current Condition Start: 07/31/24 13:41 Freq: Status: Active Protocol: Document 08/01/24 10:45 [facility] (Rec: 08/01/24 11:33 [facility] [id number]) Current Condition History of Current Condition History of Current Condition pt returns to PT with compression fx She notes she drove to [place] at at [place] time and on her return is when her symptoms were worse. She had the dog on her lap during this time and the dog weighs about 30 lbs. It is being recommend to go on Iveniti for osteoporosis 2 injections 1 xm per moth but due to side effects she is worried about taking it. Her pain is intermittent now and her scolioss makes it twist and stick a bit and then it unlocs and its okay again pt descrbes L1-2 left lateral compression fx SHe is trying to sit up at her computer but when she gets up she feels as if she collapses a bit and her back feels locked. Pelvic tilts can feel difficult to do. Treatment Goals Patient/Caregiver Goals pt would like to be able to do her UE arm weights without irritating her back she has 8#, 6#, 5#, and 4# weights at home. Current Functional Impairments (Reported) Functional Limitations- ADL's Pain prevents Johanna from sitting more than one hour, lifting heavy items off the floor, sleep is disturbed from pain Functional Limitations- Other long car rides increase pain PT-OP-C Subjective Start: 07/31/24 13:41 Freq: Status: Active Protocol: Document 08/06/24 09:00 [facility] (Rec: 08/06/24 19:13 [facility] [id number]) OP-PT Subjective Patient Comments Patient Comments John notes she has been trying her exercises and notes that she will get a catch in her low back (L5-S1) with transfers from sit-stand and with pelvic tilt movements. She reports she would like to go over her weight lifting routine that she would like to resume for her UE for home to make sure she is using correct body mechanics and not placing any strain on her back PT-OP-F Manual Assessment Start: 07/31/24 13:41 Freq: Status: Active Protocol: Document 08/01/24 10:45 [facility] (Rec: 08/06/24 13:43 [facility] [id number]) Manual Assessments Soft Tissue Assessment Soft Tissue Mobility Assessment tightness of the lumbar paraspinals, right sided QL tightness and guarding L>R piriformis, adductor, and iliopsoas tightness PT-OP-J Posture/Palpation/Skin Start: 07/31/24 13:41 Freq: Status: Active Protocol: Document 08/01/24 10:45 [facility] (Rec: 08/06/24 18:56 [facility] [id number]) Palpation Assessment Location L5/S1 Palpation Findings Muscle Guarding,Tenderness Palpation Details muscle guarding of the paraspinals B PT-OP-K Range of Motion Start: 07/31/24 13:41 Freq: Status: Active Protocol: Document 08/01/24 10:45 [facility] (Rec: 08/06/24 18:56 [facility] [id number]) Lumbar Spine Range of Motion Lumbar Spine Active Testing Position Standing Lateral Flexion Left 10 Lateral Flexion Right 15 ROM Limitations Soft Tissue Tightness, Contracture Comments scoliosis with curve to the right pt demonstrates full lumbar flexion rotation and sidebending are guarded and painful PT-OP-M Strength Start: 07/31/24 13:41 Freq: Status: Active Protocol: Document 08/01/24 10:45 [facility] (Rec: 08/06/24 18:59 [facility] [id number]) Trunk Strength Trunk Manual Muscle Testing Flexion 3 Fair Extension 2+ Poor+ Rotation Left 2+ Poor+ Rotation Right 2+ Poor+ Lateral Flexion Left 3 Fair Lateral Flexion Right 3 Fair Core Stabilization Johanna is able to recruit her transverse abdominals but has pain with ASLR B PT-OP-Q Treatments Start: 07/31/24 13:41 Freq: Status: Active Protocol: Document 08/06/24 09:00 [facility] (Rec: 03/04/25 19:13 [facility] [id number]) Therapeutic Exercises Supine Exercises pelvic tilt with TA and pelvic floor Reps/Minutes x 5 reps piriformis stretch Reps/Minutes 30 sec to 1 min each side Other Exercises standing shoulder ER Other Exercise Name reviewed this from pts home exercise routine Reps/Minutes x 10 reps level 2 TB standing shoulder extension Reps/Minutes 2x 10 with level 2 TB supine Serratus anterior press ups Reps/Minutes no resistance, supine pressups Comments pt given manual cues for scapula protraction/retraction weight lifting exercises that pt had from home Other Exercise Name bicep curls, tricep extensions , over head skull crushers, overhead press Reps/Minutes x 10 reps each Comments all exercises were reviewed for good form and done with 2 and 4# weights cat cow Reps/Minutes x 10 Manual Therapy Treatment Soft Tissue Mobilization lumbar paraspinals and gluteal attachments to the sacrum Mobilization Type Myofascial Release Intensity/Depth Moderate Body Position Prone Comments used the pillow for support PT-OP-T Assessment and Plan Start: 07/31/24 13:41 Freq: Status: Active Protocol: Document 08/06/24 09:00 [facility] (Rec: 08/07/24 12:50 [facility] [id number]) Physical Therapy Assessment Assessment Summary Assessment I worked on MFR over the lumbar paraspinals and gluteal attachments to the sacrum prior to exercises today as Johanna was experiencing a catching sensation over the lumbar sacral junction with pelvic tilt and with sit-stand . She presents with scoliosis and a new minimal left sided compression fraction at L1-2. Her pain is in the L5-S1 region mainly. She is guarded and tight R>L side of the lumbar paraspinals and right QL. Johanna is wanting to get back to her UE weight training routine that and wanted to take time today to go over her exercises she has been doing for home to make sure she isn't placing any strain on her back. I reviewed these with her and we added in some scapular stabilization exercise including SA pressups from supine, shoulder extension, shoulder ER. She was given cues to avoid leaning back with her UE weights and I kept her weight small today between 2-4#for her weights she had been doing at home. Physical Therapy Plan Frequency and Duration Frequency of Treatment 2x/Week Duration of treatment (weeks) 8 Plan of Care Start Date 08/01/24 Plan of Care End Date 10/24/24 Therapeutic Interventions Therapeutic Interventions Home Exercise Program,Manual Therapy,Patient/Caregiver Education,Self-Care/Home Management,Soft Tissue Mobilization,Therapeutic Exercises Next Visit Focus/Plan Next Note Type Treatment Note Next Visit Plan Check in with how Johanna is feeling with pelvic tilts and cat cow as well as transitions from sit-stand if she is still getting the catch she was feeling, fascial work using the prone body pillow over the parapsinals and QL, check in with her home UE weight program if she has questions, review stretches for the low back and hips.
--- NOTE | 2024-08-16 15:24 | PT.OTN ---
Current Diagnoses Other chronic pain (08/16/24) Thoracogenic scoliosis, thoracolumbar region (08/16/24) Spinal instabilities, lumbar region (08/16/24) Low back pain, unspecified (08/16/24) Physical Therapy Treatment Note PT-OP-A Visit Information Start: 07/31/24 13:41 Freq: Status: Active Protocol: Document 08/16/24 14:37 SP (Rec: 08/16/24 15:55 SP [id number]) Out-Patient Physical Therapy Visit Information Visit Information Visit Type Treatment Note Visit Start Time 14:37 Visit Stop Time 15:24 Visit Number 3 Number of LEGAL PRACTICE MANAGER Visits 1 Evaluation Information Evaluation Date 08/01/24 Precautions Precautions Hx: Scoliosis (L concave, R convex) PT-OP-B Current Condition Start: 07/31/24 13:41 Freq: Status: Active Protocol: Document 08/01/24 10:45 [facility] (Rec: 08/01/24 11:33 [facility] [id number]) Current Condition History of Current Condition History of Current Condition pt returns to PT with compression fx She notes she drove to [place] at at [facility] and on her return is when her symptoms were worse. She had the dog on her lap during this time and the dog weighs about 30 lbs. It is being recommend to go on Iveniti for osteoporosis 2 injections 1 xm per moth but due to side effects she is worried about taking it. Her pain is intermittent now and her scolioss makes it twist and stick a bit and then it unlocs and its okay again pt descrbes L1-2 left lateral compression fx SHe is trying to sit up at her computer but when she gets up she feels as if she collapses a bit and her back feels locked. Pelvic tilts can feel difficult to do. Treatment Goals Patient/Caregiver Goals pt would like to be able to do her UE arm weights without irritating her back she has 8#, 6#, 5#, and 4# weights at home. Current Functional Impairments (Reported) Functional Limitations- ADL's Pain prevents Johanna from sitting more than one hour, lifting heavy items off the floor, sleep is disturbed from pain Functional Limitations- Other long car rides increase pain PT-OP-C Subjective Start: 07/31/24 13:41 Freq: Status: Active Protocol: Document 08/16/24 14:37 SP (Rec: 08/16/24 15:55 SP [id number]) OP-PT Subjective Patient Comments Patient Comments Pt reports still L>R SI and lumbar area especially with cat/camel, very tight in LB, needs assist with fascial mobility today. Wants to review HEP tilts and tight hip flexors. Unsure resisted extension form and winging presses wants to review. PT-OP-F Manual Assessment Start: 07/31/24 13:41 Freq: Status: Active Protocol: Document 08/01/24 10:45 AMH (Rec: 08/06/24 13:43 AMH [id number]) Manual Assessments Soft Tissue Assessment Soft Tissue Mobility Assessment tightness of the lumbar paraspinals, right sided QL tightness and guarding L>R piriformis, adductor, and iliopsoas tightness PT-OP-J Posture/Palpation/Skin Start: 07/31/24 13:41 Freq: Status: Active Protocol: Document 08/01/24 10:45 AMH (Rec: 08/06/24 18:56 AM[facility] [id number]) Palpation Assessment Location L5/S1 Palpation Findings Muscle Guarding,Tenderness Palpation Details muscle guarding of the paraspinals B PT-OP-K Range of Motion Start: 07/31/24 13:41 Freq: Status: Active Protocol: Document 08/01/24 10:45 AMH (Rec: 08/06/24 18:56 AMH [id number]) Lumbar Spine Range of Motion Lumbar Spine Active Testing Position Standing Lateral Flexion Left 10 Lateral Flexion Right 15 ROM Limitations Soft Tissue Tightness, Contracture Comments scoliosis with curve to the right pt demonstrates full lumbar flexion rotation and sidebending are guarded and painful PT-OP-M Strength Start: 07/31/24 13:41 Freq: Status: Active Protocol: Document 08/01/24 10:45 AMH (Rec: 08/06/24 18:59 AMH [id number]) Trunk Strength Trunk Manual Muscle Testing Flexion 3 Fair Extension 2+ Poor+ Rotation Left 2+ Poor+ Rotation Right 2+ Poor+ Lateral Flexion Left 3 Fair Lateral Flexion Right 3 Fair Core Stabilization Johanna is able to recruit her transverse abdominals but has pain with ASLR B PT-OP-Q Treatments Start: 07/31/24 13:41 Freq: Status: Active Protocol: Document 08/16/24 14:37 SP (Rec: 08/16/24 15:55 SP [id number]) Therapeutic Exercises Supine Exercises pelvic tilt with TA and pelvic floor Supine Exercise Name hand written on HO Reps/Minutes 10 reps Comments cued small range, improves with reps further mobility ?<> P bridges Supine Exercise Name segmental bridge Reps/Minutes x 10 reps Comments cued pelvic roll into PPT then segmental lift/lower- better range post man. piriformis stretch Supine Exercise Name ER Side bilateral Resistance AAROM Reps/Minutes 30 sec to 1 min each side Comments cued neutral pelvis correction improved LB comfort SKTC Reps/Minutes hold 60 sec Comments improved range post manual Standing Exercises serratus press Standing Exercise Name trialed and written on her HO as alternative supine Side bilateral Resistance AROM Equipment Used hands on wall, shld height Reps/Minutes 10 Comments cued PPT, feet underneath hips , scapular glide- good form dec winging Other Exercises 1/2 kneel hip flexor stretch Other Exercise Name added to HEP with hand written image Reps/Minutes 30 SH Comments cued back straight, contact chair forward wt shift- good quad/hip flexor st Child's Pose Other Exercise Name better range post manual: fwd and SB Reps/Minutes 5 breath Comments cued ease into range, not push into LBP- better with time breathes standing shoulder extension Other Exercise Name reviewed & added cues to HO Resistance TB #2 teal (provided) Reps/Minutes 2x 10 with level 2 TB Comments cued feet shld width, soft knee, PPT neutral /c TA, pull back ext to thigh supine Serratus anterior press ups Other Exercise Name Hooklying Reps/Minutes no resistance, supine press ups wag the tail Side bilateral Reps/Minutes x 8 each side, alternate Comments improved form post manual, cued look at hip C Manual Therapy Treatment Consent Patient gave verbal consent for manual Yes treatment Soft Tissue Mobilization lumbar paraspinals and gluteal attachments to the sacrum Body Location 08/16/24: Lumbar Spine fascia Mobilization Type Instrument Assisted,Myofascial Release Intensity/Depth Moderate Body Position Prone over 2 pillows & quadruped Comments skin rolling then cupping gentle suctionover. Along ES and across spine L1-5 rika PT-OP-T Assessment and Plan Start: 07/31/24 13:41 Freq: Status: Active Protocol: Document 08/16/24 14:37 SP (Rec: 08/16/24 15:55 SP [id number]) Physical Therapy Assessment Goals 3 Impairment Johanna has questions regarding her home weight training program and needs guidance on how to proceed with her exercises without causing any irritation to her L1-2 compression fracture Penitentiary Goal (LTG) Johanna feels independent with her home weight training program LTG Duration 8 weeks 2 Impairment Left >Right sided piriformis, adductor, and iliopsoas tightness and guarding as well as lumbar paraspinal tightness and guarding Short Term Goal (STG) Johanna is educated in stretches for her hips and low back to help reduce tightness and guarding STG Duration 4 weeks Penitentiary Goal (LTG) Johanna is independent with a home program for ROM and stretching for the low back and hips LTG Duration 8 weeks 1 Impairment Low back pain rated 4-8/10 limiting sitting and standing tolerance and limits sleep Junior Systems Engineer Goal (LTG) Johanna reports a overall reduction in low back pain increasing her sitting and standing tolerance and her ability to sleep without waking due to pain LTG Duration 8 weeks Assessment Summary Assessment Pt improved range in LS post/ lateral tilts post manual mainly cupping, provided screen shot if want get silcone cups self application with cream/oil glide support. Cues for ppt neutral during most of ther ex with improved self corrections understanding carryover resisted shld ext, serratus press. Incorporated 1 /2 kneel hip flexor stretch for ease of lumbar alignment. Physical Therapy Plan Frequency and Duration Frequency of Treatment 2x/Week Duration of treatment (weeks) 8 Plan of Care Start Date 08/01/24 Plan of Care End Date 10/24/24 Therapeutic Interventions Therapeutic Interventions Home Exercise Program,Manual Therapy,Patient/Caregiver Education,Self-Care/Home Management,Soft Tissue Mobilization,Therapeutic Exercises Next Visit Focus/Plan Next Note Type Treatment Note Next Visit Plan Continue fascial work using the prone body pillow and response to cupping over the parapsinals and QL, any clicking in low back, check in with her home UE weight program if she has questions, review stretches for the low back and hips.
--- NOTE | 2024-09-05 16:00 | PT.OTN ---
Current Diagnoses Other chronic pain (09/05/24) Thoracogenic scoliosis, thoracolumbar region (09/05/24) Spinal instabilities, lumbar region (09/05/24) Low back pain, unspecified (09/05/24) Physical Therapy Treatment Note PT-OP-A Visit Information Start: 07/31/24 13:41 Freq: Status: Active Protocol: Document 09/05/24 15:19 AMH (Rec: 09/05/24 16:20 [facility] [id number]) Out-Patient Physical Therapy Visit Information Visit Information Visit Type Treatment Note Visit Start Time 15:20 Visit Stop Time 16:00 Visit Number 4 PT-OP-B Current Condition Start: 07/31/24 13:41 Freq: Status: Active Protocol: Document 08/01/24 10:45 AMH (Rec: 08/01/24 11:33 [facility] [id number]) Current Condition History of Current Condition History of Current Condition pt returns to PT with compression fx She [place] to [place] at at [place] time and on her return is when her symptoms were worse. She had the dog on her lap during this time and the dog weighs about 30 lbs. It is being recommend to go on Iveniti for osteoporosis 2 injections 1 xm per moth but due to side effects she is worried about taking it. Her pain is intermittent now and her scolioss makes it twist and stick a bit and then it unlocs and its okay again pt descrbes L1-2 left lateral compression fx SHe is trying to sit up at her computer but when she gets up she feels as if she collapses a bit and her back feels locked. Pelvic tilts can feel difficult to do. Treatment Goals Patient/Caregiver Goals pt would like to be able to do her UE arm weights without irritating her back she has 8#, 6#, 5#, and 4# weights at home. Current Functional Impairments (Reported) Functional Limitations- ADL's Pain prevents Johanna from sitting more than one hour, lifting heavy items off the floor, sleep is disturbed from pain Functional Limitations- Other long car rides increase pain PT-OP-C Subjective Start: 07/31/24 13:41 Freq: Status: Active Protocol: Document 09/05/24 15:19 AMH (Rec: 09/05/24 16:20 [facility] [id number]) OP-PT Subjective Patient Comments Patient Comments pt notes she is spasming a bit she hasn't been stretcheing as she was preparing a meal for 8 people so it feels tighter. PT-OP-F Manual Assessment Start: 07/31/24 13:41 Freq: Status: Active Protocol: Document 08/01/24 10:45 AMH (Rec: 08/06/24 13:43 AMH [id number]) Manual Assessments Soft Tissue Assessment Soft Tissue Mobility Assessment tightness of the lumbar paraspinals, right sided QL tightness and guarding L>R piriformis, adductor, and iliopsoas tightness PT-OP-J Posture/Palpation/Skin Start: 07/31/24 13:41 Freq: Status: Active Protocol: Document 08/01/24 10:45 AMH (Rec: 08/06/24 18:56 [facility] [id number]) Palpation Assessment Location L5/S1 Palpation Findings Muscle Guarding,Tenderness Palpation Details muscle guarding of the paraspinals B PT-OP-K Range of Motion Start: 07/31/24 13:41 Freq: Status: Active Protocol: Document 08/01/24 10:45 AMH (Rec: 08/06/24 18:56 [facility] [id number]) Lumbar Spine Range of Motion Lumbar Spine Active Testing Position Standing Lateral Flexion Left 10 Lateral Flexion Right 15 ROM Limitations Soft Tissue Tightness, Contracture Comments scoliosis with curve to the right pt demonstrates full lumbar flexion rotation and sidebending are guarded and painful PT-OP-M Strength Start: 07/31/24 13:41 Freq: Status: Active Protocol: Document 08/01/24 10:45 AMH (Rec: 08/06/24 18:59 [facility] [id number]) Trunk Strength Trunk Manual Muscle Testing Flexion 3 Fair Extension 2+ Poor+ Rotation Left 2+ Poor+ Rotation Right 2+ Poor+ Lateral Flexion Left 3 Fair Lateral Flexion Right 3 Fair Core Stabilization Johanna is able to recruit her transverse abdominals but has pain with ASLR B PT-OP-Q Treatments Start: 07/31/24 13:41 Freq: Status: Active Protocol: Document 09/05/24 15:19 AMH (Rec: 09/05/24 16:20 [facility] [id number]) Therapeutic Exercises Other Exercises modified down dog with hands on the plinth Reps/Minutes hold 30 sec x 2 Comments cues to slightly rotate left as scoliosis causes right rot Child's Pose Other Exercise Name better range post manual: fwd and SB Reps/Minutes 5 breath Comments cued ease into range, not push into LBP- better with time breathes cat cow Reps/Minutes x 10 Manual Therapy Treatment Soft Tissue Mobilization lumbar paraspinals and gluteal attachments to the sacrum Mobilization Type Myofascial Release Intensity/Depth Moderate Body Position body pillow Comments manual MFR technques for the lumbar parapspinals, QL and gluteals Manual Techniques manual hip IR/ER in prone Comments left side tighter than the right side today manual quad stretch in prone Comments manual quad stretch after working on MFR to the low back Self-Care/Home Management Treatment Education Patient Education Body Mechanics,Home Exercise Program Other Education worked on postural modification in mirror for HEP and added in down dog modified stretch using plinth for support PT-OP-T Assessment and Plan Start: 07/31/24 13:41 Freq: Status: Active Protocol: Document 09/05/24 15:19 [facility] (Rec: 09/05/24 16:20 [facility] [id number]) Physical Therapy Assessment Goals 3 Impairment Johanna has questions regarding her home weight training program and needs guidance on how to proceed with her exercises without causing any irritation to her L1-2 compression fracture Halfway Goal (LTG) Johanna feels independent with her home weight training program LTG Duration 8 weeks 2 Impairment Left >Right sided piriformis, adductor, and iliopsoas tightness and guarding as well as lumbar paraspinal tightness and guarding Short Term Goal (STG) Johanna is educated in stretches for her hips and low back to help reduce tightness and guarding STG Duration 4 weeks Medical Coding Manager Goal (LTG) Johanna is independent with a home program for ROM and stretching for the low back and hips LTG Duration 8 weeks 1 Impairment Low back pain rated 4-8/10 limiting sitting and standing tolerance and limits sleep Medical Coding Manager Goal (LTG) Johanna reports a overall reduction in low back pain increasing her sitting and standing tolerance and her ability to sleep without waking due to pain LTG Duration 8 weeks Assessment Summary Assessment Johanna is doing better overall and cat cow is easier now, she notes when she misses a day of stretching she can really tell. pt notes she prefers manual tx over cupping . worked on alignment in standing and added in modified down dog stretch with hands on plinth Physical Therapy Plan Frequency and Duration Frequency of Treatment 2x/Week Duration of treatment (weeks) 8 Plan of Care Start Date 08/01/24 Plan of Care End Date 10/24/24 Therapeutic Interventions Therapeutic Interventions Home Exercise Program,Manual Therapy,Patient/Caregiver Education,Self-Care/Home Management,Soft Tissue Mobilization,Therapeutic Exercises Next Visit Focus/Plan Next Note Type Treatment Note Next Visit Plan continue fascial work to decompress the spine, spinal stability exercises and stretches
--- NOTE | 2024-09-17 10:57 | PT.OTN ---
Current Diagnoses Other chronic pain (09/17/24) Thoracogenic scoliosis, thoracolumbar region (09/17/24) Spinal instabilities, lumbar region (09/17/24) Low back pain, unspecified (09/17/24) Physical Therapy Treatment Note PT-OP-A Visit Information Start: 07/31/24 13:41 Freq: Status: Active Protocol: Document 09/17/24 09:45 AM[facility] (Rec: 09/17/24 10:33 [facility] [id number]) Out-Patient Physical Therapy Visit Information Visit Information Visit Type Treatment Note Visit Start Time 09:48 Visit Stop Time 10:30 Visit Number 5 PT-OP-B Current Condition Start: 07/31/24 13:41 Freq: Status: Active Protocol: Document 08/01/24 10:45 AMH (Rec: 08/01/24 11:33 [facility] [id number]) Current Condition History of Current Condition History of Current Condition pt returns to PT with compression fx She notes she drove to [place] at at [place] time and on her return is when her symptoms were worse. She had the dog on her lap during this time and the dog weighs about 30 lbs. It is being recommend to go on Iveniti for osteoporosis 2 injections 1 xm per moth but due to side effects she is worried about taking it. Her pain is intermittent now and her scolioss makes it twist and stick a bit and then it unlocs and its okay again pt descrbes L1-2 left lateral compression fx SHe is trying to sit up at her computer but when she gets up she feels as if she collapses a bit and her back feels locked. Pelvic tilts can feel difficult to do. Treatment Goals Patient/Caregiver Goals pt would like to be able to do her UE arm weights without irritating her back she has 8#, 6#, 5#, and 4# weights at home. Current Functional Impairments (Reported) Functional Limitations- ADL's Pain prevents Johanna from sitting more than one hour, lifting heavy items off the floor, sleep is disturbed from pain Functional Limitations- Other long car rides increase pain PT-OP-C Subjective Start: 07/31/24 13:41 Freq: Status: Active Protocol: Document 09/17/24 09:45 AMH (Rec: 09/17/24 10:33 [facility] [id number]) OP-PT Subjective Patient Comments Patient Comments pt notes pain has moved up more on that right side of her spine but its intermittent she has been hiking a lot at [employer] on the trails PT-OP-F Manual Assessment Start: 07/31/24 13:41 Freq: Status: Active Protocol: Document 08/01/24 10:45 AMH (Rec: 08/06/24 13:43 AMH [id number]) Manual Assessments Soft Tissue Assessment Soft Tissue Mobility Assessment tightness of the lumbar paraspinals, right sided QL tightness and guarding L>R piriformis, adductor, and iliopsoas tightness PT-OP-J Posture/Palpation/Skin Start: 07/31/24 13:41 Freq: Status: Active Protocol: Document 08/01/24 10:45 AMH (Rec: 08/06/24 18:56 AMH [id number]) Palpation Assessment Location L5/S1 Palpation Findings Muscle Guarding,Tenderness Palpation Details muscle guarding of the paraspinals B PT-OP-K Range of Motion Start: 07/31/24 13:41 Freq: Status: Active Protocol: Document 08/01/24 10:45 AMH (Rec: 08/06/24 18:56 AMH [id number]) Lumbar Spine Range of Motion Lumbar Spine Active Testing Position Standing Lateral Flexion Left 10 Lateral Flexion Right 15 ROM Limitations Soft Tissue Tightness, Contracture Comments scoliosis with curve to the right pt demonstrates full lumbar flexion rotation and sidebending are guarded and painful PT-OP-M Strength Start: 07/31/24 13:41 Freq: Status: Active Protocol: Document 08/01/24 10:45 AMH (Rec: 08/06/24 18:59 AM[facility] [id number]) Trunk Strength Trunk Manual Muscle Testing Flexion 3 Fair Extension 2+ Poor+ Rotation Left 2+ Poor+ Rotation Right 2+ Poor+ Lateral Flexion Left 3 Fair Lateral Flexion Right 3 Fair Core Stabilization Johanna is able to recruit her transverse abdominals but has pain with ASLR B PT-OP-Q Treatments Start: 07/31/24 13:41 Freq: Status: Active Protocol: Document 09/17/24 09:45 AMH (Rec: 09/17/24 10:33 [facility] [id number]) Therapeutic Exercises Supine Exercises SKTC Reps/Minutes hold 60 sec Comments improved range post manual Prone Exercises cobra Reps/Minutes x 5 reps holding 10 seconds prone knee flexion Prone Exercise Name cues to stabilize with the core Reps/Minutes x 10 reps each side Other Exercises iliopsoas stretch in yoanna test position Reps/Minutes worked Bilaterally in yoanna test positions hold 1 min each side Manual Therapy Treatment Soft Tissue Mobilization lumbar paraspinals and gluteal attachments to the sacrum Body Location worked more on the right side of the parapsinals today Mobilization Type Myofascial Release Body Position Hooklying Comments prone body pillow used PT-OP-T Assessment and Plan Start: 07/31/24 13:41 Freq: Status: Active Protocol: Document 09/17/24 09:45 [facility] (Rec: 09/17/24 10:33 [facility] [id number]) Physical Therapy Assessment Goals 3 Impairment Johanna has questions regarding her home weight training program and needs guidance on how to proceed with her exercises without causing any irritation to her L1-2 compression fracture Fine Arts Chair Goal (LTG) Johanna feels independent with her home weight training program LTG Duration 8 weeks 2 Impairment Left >Right sided piriformis, adductor, and iliopsoas tightness and guarding as well as lumbar paraspinal tightness and guarding Short Term Goal (STG) Johanna is educated in stretches for her hips and low back to help reduce tightness and guarding STG Duration 4 weeks Assisted Goal (LTG) Johanna is independent with a home program for ROM and stretching for the low back and hips LTG Duration 8 weeks 1 Impairment Low back pain rated 4-8/10 limiting sitting and standing tolerance and limits sleep Assisted Goal (LTG) Johanna reports a overall reduction in low back pain increasing her sitting and standing tolerance and her ability to sleep without waking due to pain LTG Duration 8 weeks Assessment Summary Assessment Johanna was having difficulty with 1/2 kneeling iliopsoas stretch so we worked on a few different ways to stretch her quads and hip flexor, we tried modified yoanna test position , sidelying quad stretch, prone knee flexion. She did best in yoanna test position and prone knee flexion and I added those for home along with gentle cobra stretch. She did feel better in the low back following stretching for the quads and hip flexor. Physical Therapy Plan Frequency and Duration Frequency of Treatment 2x/Week Duration of treatment (weeks) 8 Plan of Care Start Date 08/01/24 Plan of Care End Date 10/24/24 Therapeutic Interventions Therapeutic Interventions Home Exercise Program,Manual Therapy,Patient/Caregiver Education,Self-Care/Home Management,Soft Tissue Mobilization,Therapeutic Exercises Next Visit Focus/Plan Next Note Type Treatment Note Next Visit Plan review iliopsoas stretch in oyanna test position and prone quad knee bends, continue to work on fascial work to decompress the spine and spinal stability exercises, stretches
--- NOTE | 2024-10-03 16:57 | PT.OTN ---
Current Diagnoses Other chronic pain (10/03/24) Thoracogenic scoliosis, thoracolumbar region (10/03/24) Spinal instabilities, lumbar region (10/03/24) Low back pain, unspecified (10/03/24) Physical Therapy Treatment Note PT-OP-A Visit Information Start: 07/31/24 13:41 Freq: Status: Active Protocol: Document 10/03/24 08:59 [facility] (Rec: 10/03/24 09:49 [facility] [id number]) Out-Patient Physical Therapy Visit Information Visit Information Visit Type Treatment Note Visit Start Time 09:00 Visit Stop Time 09:45 Visit Number 6 Number of GLOVE CUTTER Visits 0 PT-OP-B Current Condition Start: 07/31/24 13:41 Freq: Status: Active Protocol: Document 08/01/24 10:45 [facility] (Rec: 08/01/24 11:33 [facility] [id number]) Current Condition History of Current Condition History of Current Condition pt returns to PT with compression fx She [place] at [place] time and on her return is when her symptoms were worse. She had the dog on her lap during this time and the dog weighs about 30 lbs. It is being recommend to go on Iveniti for osteoporosis 2 injections 1 xm per moth but due to side effects she is worried about taking it. Her pain is intermittent now and her scolioss makes it twist and stick a bit and then it unlocs and its okay again pt descrbes L1-2 left lateral compression fx SHe is trying to sit up at her computer but when she gets up she feels as if she collapses a bit and her back feels locked. Pelvic tilts can feel difficult to do. Treatment Goals Patient/Caregiver Goals pt would like to be able to do her UE arm weights without irritating her back she has 8#, 6#, 5#, and 4# weights at home. Current Functional Impairments (Reported) Functional Limitations- ADL's Pain prevents Johanna from sitting more than one hour, lifting heavy items off the floor, sleep is disturbed from pain Functional Limitations- Other long car rides increase pain PT-OP-C Subjective Start: 07/31/24 13:41 Freq: Status: Active Protocol: Document 10/03/24 08:59 [facility] (Rec: 10/03/24 09:49 [facility] [id number]) OP-PT Subjective Patient Comments Patient Comments pt notes she is stiff this am, she is feeling that she can do the pelvic tilt PT-OP-F Manual Assessment Start: 07/31/24 13:41 Freq: Status: Active Protocol: Document 08/01/24 10:45 [facility] (Rec: 08/06/24 13:43 [facility] [id number]) Manual Assessments Soft Tissue Assessment Soft Tissue Mobility Assessment tightness of the lumbar paraspinals, right sided QL tightness and guarding L>R piriformis, adductor, and iliopsoas tightness PT-OP-J Posture/Palpation/Skin Start: 07/31/24 13:41 Freq: Status: Active Protocol: Document 08/01/24 10:45 [facility] (Rec: 08/06/24 18:56 [facility] [id number]) Palpation Assessment Location L5/S1 Palpation Findings Muscle Guarding,Tenderness Palpation Details muscle guarding of the paraspinals B PT-OP-K Range of Motion Start: 07/31/24 13:41 Freq: Status: Active Protocol: Document 08/01/24 10:45 [facility] (Rec: 08/06/24 18:56 [facility] [id number]) Lumbar Spine Range of Motion Lumbar Spine Active Testing Position Standing Lateral Flexion Left 10 Lateral Flexion Right 15 ROM Limitations Soft Tissue Tightness, Contracture Comments scoliosis with curve to the right pt demonstrates full lumbar flexion rotation and sidebending are guarded and painful PT-OP-M Strength Start: 07/31/24 13:41 Freq: Status: Active Protocol: Document 08/01/24 10:45 [facility] (Rec: 08/06/24 18:59 [facility] [id number]) Trunk Strength Trunk Manual Muscle Testing Flexion 3 Fair Extension 2+ Poor+ Rotation Left 2+ Poor+ Rotation Right 2+ Poor+ Lateral Flexion Left 3 Fair Lateral Flexion Right 3 Fair Core Stabilization Johanna is able to recruit her transverse abdominals but has pain with ASLR B PT-OP-Q Treatments Start: 07/31/24 13:41 Freq: Status: Active Protocol: Document 10/03/24 08:59 [facility] (Rec: 10/03/24 09:49 [facility] [id number]) Therapeutic Exercises Other Exercises seated iliopsoas stretch Reps/Minutes hold 1-2 min PT-OP-T Assessment and Plan Start: 07/31/24 13:41 Freq: Status: Active Protocol: Document 10/03/24 16:55 [facility] (Rec: 10/03/24 16:57 [facility] [id number]) Physical Therapy Assessment Assessment Summary Assessment Johanna is able to do a little more with cat cow and she is not feeling the locking as much, her tightness is predominately in the right lumbar and thoracic paraspinals now. She does get really tight in her back after walking. I worked again today on releasing her hip flexors and then time was spent on MFR techniques for her back which she tolerated well. Physical Therapy Plan Frequency and Duration Frequency of Treatment 2x/Week Duration of treatment (weeks) 8 Plan of Care Start Date 08/01/24 Plan of Care End Date 10/24/24 Therapeutic Interventions Therapeutic Interventions Home Exercise Program,Manual Therapy,Patient/Caregiver Education,Self-Care/Home Management,Soft Tissue Mobilization,Therapeutic Exercises Next Visit Focus/Plan Next Note Type Treatment Note Next Visit Plan review iliopsoas stretch in yoanna test position and prone quad knee bends, continue to work on fascial work to decompress the spine and spinal stability exercises, stretches
--- NOTE | 2024-10-10 16:49 | PT.OTN ---
Current Diagnoses Other chronic pain (10/10/24) Thoracogenic scoliosis, thoracolumbar region (10/10/24) Spinal instabilities, lumbar region (10/10/24) Low back pain, unspecified (10/10/24) Physical Therapy Treatment Note PT-OP-A Visit Information Start: 07/31/24 13:41 Freq: Status: Active Protocol: Document 10/10/24 09:47 [facility] (Rec: 10/10/24 10:34 [facility] [id number]) Out-Patient Physical Therapy Visit Information Visit Information Visit Start Time 09:48 Visit Stop Time 10:32 Visit Number 7 PT-OP-B Current Condition Start: 07/31/24 13:41 Freq: Status: Active Protocol: Document 08/01/24 10:45 [facility] (Rec: 08/01/24 11:33 [facility] [id number]) Current Condition History of Current Condition History of Current Condition pt returns to PT with compression fx [place] and on her return is when her symptoms were worse. She had the dog on her lap during this time and the dog weighs about 30 lbs. It is being recommend to go on Iveniti for osteoporosis 2 injections 1 xm per moth but due to side effects she is worried about taking it. Her pain is intermittent now and her scolioss makes it twist and stick a bit and then it unlocs and its okay again pt descrbes L1-2 left lateral compression fx SHe is trying to sit up at her computer but when she gets up she feels as if she collapses a bit and her back feels locked. Pelvic tilts can feel difficult to do. Treatment Goals Patient/Caregiver Goals pt would like to be able to do her UE arm weights without irritating her back she has 8#, 6#, 5#, and 4# weights at home. Current Functional Impairments (Reported) Functional Limitations- ADL's Pain prevents Johanna from sitting more than one hour, lifting heavy items off the floor, sleep is disturbed from pain Functional Limitations- Other long car rides increase pain PT-OP-C Subjective Start: 07/31/24 13:41 Freq: Status: Active Protocol: Document 10/10/24 09:47 [facility] (Rec: 10/10/24 10:34 [facility] [id number]) OP-PT Subjective Patient Comments Patient Comments pt notes she is trying to find time to do her exercises , she had to lift her dog and this increased her right sided back pain PT-OP-F Manual Assessment Start: 07/31/24 13:41 Freq: Status: Active Protocol: Document 08/01/24 10:45 [facility] (Rec: 08/06/24 13:43 [facility] [id number]) Manual Assessments Soft Tissue Assessment Soft Tissue Mobility Assessment tightness of the lumbar paraspinals, right sided QL tightness and guarding L>R piriformis, adductor, and iliopsoas tightness PT-OP-J Posture/Palpation/Skin Start: 07/31/24 13:41 Freq: Status: Active Protocol: Document 08/01/24 10:45 [facility] (Rec: 08/06/24 18:56 [facility] [id number]) Palpation Assessment Location L5/S1 Palpation Findings Muscle Guarding,Tenderness Palpation Details muscle guarding of the paraspinals B PT-OP-K Range of Motion Start: 07/31/24 13:41 Freq: Status: Active Protocol: Document 08/01/24 10:45 [facility] (Rec: 08/06/24 18:56 [facility] [id number]) Lumbar Spine Range of Motion Lumbar Spine Active Testing Position Standing Lateral Flexion Left 10 Lateral Flexion Right 15 ROM Limitations Soft Tissue Tightness, Contracture Comments scoliosis with curve to the right pt demonstrates full lumbar flexion rotation and sidebending are guarded and painful PT-OP-M Strength Start: 07/31/24 13:41 Freq: Status: Active Protocol: Document 08/01/24 10:45 [facility] (Rec: 08/06/24 18:59 [facility] [id number]) Trunk Strength Trunk Manual Muscle Testing Flexion 3 Fair Extension 2+ Poor+ Rotation Left 2+ Poor+ Rotation Right 2+ Poor+ Lateral Flexion Left 3 Fair Lateral Flexion Right 3 Fair Core Stabilization Johanna is able to recruit her transverse abdominals but has pain with ASLR B PT-OP-Q Treatments Start: 07/31/24 13:41 Freq: Status: Active Protocol: Document 10/10/24 16:47 [facility] (Rec: 10/10/24 16:48 [facility] [id number]) Therapeutic Exercises Other Exercises iliopsoas stretch in yoanna test position Reps/Minutes worked Bilaterally in yoanna test positions hold 1 min each side Manual Therapy Treatment Soft Tissue Mobilization lumbar paraspinals and gluteal attachments to the sacrum Body Location worked more on the right side of the parapsinals today Mobilization Type Myofascial Release Body Position Hooklying Comments prone body pillow used Manual Techniques manual hip IR/ER in prone Comments left side tighter than the right side today manual quad stretch in prone Comments manual quad stretch after working on MFR to the low back PT-OP-T Assessment and Plan Start: 07/31/24 13:41 Freq: Status: Active Protocol: Document 10/10/24 16:47 [facility] (Rec: 10/10/24 16:48 [facility] [id number]) Physical Therapy Assessment Assessment Summary Assessment Johanna was more tight today due to having to lift her dog, she is using good body mechanics and hinging with her hips into a squat. Physical Therapy Plan Frequency and Duration Frequency of Treatment 2x/Week Duration of treatment (weeks) 8 Plan of Care Start Date 08/01/24 Plan of Care End Date 10/24/24 Therapeutic Interventions Therapeutic Interventions Home Exercise Program,Manual Therapy,Patient/Caregiver Education,Self-Care/Home Management,Soft Tissue Mobilization,Therapeutic Exercises Next Visit Focus/Plan Next Note Type Treatment Note Next Visit Plan review iliopsoas stretch in yoanna test position and prone quad knee bends, continue to work on fascial work to decompress the spine and spinal stability exercises, stretches
--- NOTE | 2024-10-15 12:28 | PT.OTN ---
Current Diagnoses Other chronic pain (10/15/24) Thoracogenic scoliosis, thoracolumbar region (10/15/24) Spinal instabilities, lumbar region (10/15/24) Low back pain, unspecified (10/15/24) Physical Therapy Treatment Note PT-OP-A Visit Information Start: 07/31/24 13:41 Freq: Status: Active Protocol: Document 10/15/24 11:33 [facility] (Rec: 10/15/24 12:28 [facility] [id number]) Out-Patient Physical Therapy Visit Information Visit Information Visit Type Progress Note Visit Start Time 11:34 Visit Stop Time 12:16 Visit Number 8 PT-OP-B Current Condition Start: 07/31/24 13:41 Freq: Status: Active Protocol: Document 08/01/24 10:45 [facility] (Rec: 08/01/24 11:33 [facility] [id number]) Current Condition History of Current Condition History of Current Condition pt returns to PT with compression fx She notes she drove to [place] at at [place] time and on her return is when her symptoms were worse. She had the dog on her lap during this time and the dog weighs about 30 lbs. It is being recommend to go on Iveniti for osteoporosis 2 injections 1 xm per moth but due to side effects she is worried about taking it. Her pain is intermittent now and her scolioss makes it twist and stick a bit and then it unlocs and its okay again pt descrbes L1-2 left lateral compression fx SHe is trying to sit up at her computer but when she gets up she feels as if she collapses a bit and her back feels locked. Pelvic tilts can feel difficult to do. Treatment Goals Patient/Caregiver Goals pt would like to be able to do her UE arm weights without irritating her back she has 8#, 6#, 5#, and 4# weights at home. Current Functional Impairments (Reported) Functional Limitations- ADL's Pain prevents Johanna from sitting more than one hour, lifting heavy items off the floor, sleep is disturbed from pain Functional Limitations- Other long car rides increase pain PT-OP-C Subjective Start: 07/31/24 13:41 Freq: Status: Active Protocol: Document 10/15/24 11:33 [facility] (Rec: 10/15/24 12:28 [facility] [id number]) OP-PT Subjective Patient Comments Patient Comments Johanna notes it is starting to get easier to do her cat cow and she is not experiencing the catching in her back as much as she was. She is getting ready to leave for a cruise to [place] and will try to do as much of her exercises as she can on the boat PT-OP-F Manual Assessment Start: 07/31/24 13:41 Freq: Status: Active Protocol: Document 08/01/24 10:45 [facility] (Rec: 08/06/24 13:43 [facility] [id number]) Manual Assessments Soft Tissue Assessment Soft Tissue Mobility Assessment tightness of the lumbar paraspinals, right sided QL tightness and guarding L>R piriformis, adductor, and iliopsoas tightness PT-OP-J Posture/Palpation/Skin Start: 07/31/24 13:41 Freq: Status: Active Protocol: Document 08/01/24 10:45 [facility] (Rec: 08/06/24 18:56 [facility] [id number]) Palpation Assessment Location L5/S1 Palpation Findings Muscle Guarding,Tenderness Palpation Details muscle guarding of the paraspinals B PT-OP-K Range of Motion Start: 07/31/24 13:41 Freq: Status: Active Protocol: Document 08/01/24 10:45 [facility] (Rec: 08/06/24 18:56 [facility] [id number]) Lumbar Spine Range of Motion Lumbar Spine Active Testing Position Standing Lateral Flexion Left 10 Lateral Flexion Right 15 ROM Limitations Soft Tissue Tightness, Contracture Comments scoliosis with curve to the right pt demonstrates full lumbar flexion rotation and sidebending are guarded and painful PT-OP-M Strength Start: 07/31/24 13:41 Freq: Status: Active Protocol: Document 08/01/24 10:45 [facility] (Rec: 08/06/24 18:59 [facility] [id number]) Trunk Strength Trunk Manual Muscle Testing Flexion 3 Fair Extension 2+ Poor+ Rotation Left 2+ Poor+ Rotation Right 2+ Poor+ Lateral Flexion Left 3 Fair Lateral Flexion Right 3 Fair Core Stabilization Johanna is able to recruit her transverse abdominals but has pain with ASLR B PT-OP-Q Treatments Start: 07/31/24 13:41 Freq: Status: Active Protocol: Document 10/15/24 11:33 [facility] (Rec: 10/15/24 12:28 [facility] [id number]) Manual Therapy Treatment Soft Tissue Mobilization lumbar paraspinals and gluteal attachments to the sacrum Body Location worked more on the right side of the parapsinals today Mobilization Type Myofascial Release Body Position Hooklying Comments prone body pillow used Manual Techniques manual hip IR/ER in prone Comments good tolerance, initially quads were tight limiting prone knee flexion but this did improved with manual treatment manual quad stretch in prone Comments manual quad stretch after working on MFR to the low back PT-OP-T Assessment and Plan Start: 07/31/24 13:41 Freq: Status: Active Protocol: Document 10/15/24 11:33 [facility] (Rec: 10/15/24 12:28 [facility] [id number]) Physical Therapy Assessment Goals 3 Impairment Johanna has questions regarding her home weight training program and needs guidance on how to proceed with her exercises without causing any irritation to her L1-2 compression fracture Director Of Dementia Operations Goal (LTG) Johanna feels independent with her home weight training program excellent progress LTG Duration 8 weeks 2 Impairment Left >Right sided piriformis, adductor, and iliopsoas tightness and guarding as well as lumbar paraspinal tightness and guarding Short Term Goal (STG) Johanna is educated in stretches for her hips and low back to help reduce tightness and guarding goal met STG Duration 4 weeks Senior Care Goal (LTG) Johanna is independent with a home program for ROM and stretching for the low back and hips excellent progress and we are still making modifications to her HEP as she is able to tolerate more LTG Duration 8 weeks 1 Impairment Low back pain rated 4-8/10 limiting sitting and standing tolerance and limits sleep Director Of Dementia Operations Goal (LTG) Johanna reports a overall reduction in low back pain increasing her sitting and standing tolerance and her ability to sleep without waking due to pain good progress and Johanna is reporting a reduction in pain levels LTG Duration 8 weeks Assessment Summary Assessment Overall Johanna is making steady progress with PT and pain levels have been reducing . She has been able to work on a home strengthening program and is tolerating it well. She does at times lift her dog and she will experience back pain after this. We are working on body mechanics and she is trying to minimize the heavy lifting as it strains her body. Johanna would benefit from continued PT Physical Therapy Plan Frequency and Duration Frequency of Treatment 2x/Week Duration of treatment (weeks) 8 Plan of Care Start Date 10/15/24 Plan of Care End Date 12/10/24 Therapeutic Interventions Therapeutic Interventions Home Exercise Program,Manual Therapy,Patient/Caregiver Education,Self-Care/Home Management,Soft Tissue Mobilization,Therapeutic Exercises Next Visit Focus/Plan Next Note Type Treatment Note Next Visit Plan Check in with how Johanna did on her travels with her back and review HEP next visit, check for iliopsoas and quad length
--- NOTE | 2024-10-15 12:30 | PT.OPPOC ---
Physical, Occupational & Speech Therapy At [facility] Current Diagnoses Other chronic pain (10/15/24) Thoracogenic scoliosis, thoracolumbar region (10/15/24) Spinal instabilities, lumbar region (10/15/24) Low back pain, unspecified (10/15/24) Visit Care Team Role Provider Type YESENIA Ridley Attending Provider Advanced Machine Tool Builder Family Provider Primary Care Provider Referring Provider Specialty: Medical Address: [address] [place] [address], [facility] Email: [email or web address] Plan Of Care PT-OP-B Current Condition Start: 07/31/24 13:41 Freq: Status: Active Protocol: Document 08/01/24 10:45 [facility] (Rec: 08/01/24 11:33 [facility] [id number]) Current Condition History of Current Condition History of Current Condition pt returns to PT with compression fx She notes she drove to [place] at at [facility] and on her return is when her symptoms were worse. She had the dog on her lap during this time and the dog weighs about 30 lbs. It is being recommend to go on Iveniti for osteoporosis 2 injections 1 xm per moth but due to side effects she is worried about taking it. Her pain is intermittent now and her scolioss makes it twist and stick a bit and then it unlocs and its okay again pt descrbes L1-2 left lateral compression fx SHe is trying to sit up at her computer but when she gets up she feels as if she collapses a bit and her back feels locked. Pelvic tilts can feel difficult to do. Treatment Goals Patient/Caregiver Goals pt would like to be able to do her UE arm weights without irritating her back she has 8#, 6#, 5#, and 4# weights at home. Current Functional Impairments (Reported) Functional Limitations- ADL's Pain prevents Johanna from sitting more than one hour, lifting heavy items off the floor, sleep is disturbed from pain Functional Limitations- Other long car rides increase pain PT-OP-T Assessment and Plan Start: 07/31/24 13:41 Freq: Status: Active Protocol: Document 10/15/24 11:33 [facility] (Rec: 10/15/24 12:28 [facility] [id number]) Physical Therapy Assessment Goals 3 Impairment Johanna has questions regarding her home weight training program and needs guidance on how to proceed with her exercises without causing any irritation to her L1-2 compression fracture Penitentiary Goal (LTG) Johanna feels independent with her home weight training program excellent progress LTG Duration 8 weeks 2 Impairment Left >Right sided piriformis, adductor, and iliopsoas tightness and guarding as well as lumbar paraspinal tightness and guarding Short Term Goal (STG) Johanna is educated in stretches for her hips and low back to help reduce tightness and guarding goal met STG Duration 4 weeks Community Development Technician Goal (LTG) Johanna is independent with a home program for ROM and stretching for the low back and hips excellent progress and we are still making modifications to her HEP as she is able to tolerate more LTG Duration 8 weeks 1 Impairment Low back pain rated 4-8/10 limiting sitting and standing tolerance and limits sleep Community Development Technician Goal (LTG) Johanna reports a overall reduction in low back pain increasing her sitting and standing tolerance and her ability to sleep without waking due to pain good progress and Johanna is reporting a reduction in pain levels LTG Duration 8 weeks Assessment Summary Assessment Overall Johanna is making steady progress with PT and pain levels have been reducing . She has been able to work on a home strengthening program and is tolerating it well. She does at times lift her dog and she will experience back pain after this. We are working on body mechanics and she is trying to minimize the heavy lifting as it strains her body. Johanna would benefit from continued PT Physical Therapy Plan Frequency and Duration Frequency of Treatment 2x/Week Duration of treatment (weeks) 8 Plan of Care Start Date 10/15/24 Plan of Care End Date 12/10/24 Therapeutic Interventions Therapeutic Interventions Home Exercise Program,Manual Therapy,Patient/Caregiver Education,Self-Care/Home Management,Soft Tissue Mobilization,Therapeutic Exercises Next Visit Focus/Plan Next Note Type Treatment Note Next Visit Plan Check in with how Johanna did on her travels with her back and review HEP next visit, check for iliopsoas and quad length Plan of Care Dates Plan of Care Start Date 10/15/24 Plan of Care End Date 12/10/24 Electronically Signed by: Ana Maloney, PT 10/15/24 1230 If you are in agreement with this Plan of Care, please return a signed and dated copy. I have reviewed this Plan of Care and certify that the skilled therapy services above are required to meet the patient?s needs. Physician Signature Date Printed Name and Credentials Clinical Instructor Signature Printed Name and Credentials
--- NOTE | 2025-02-27 10:11 | PT.OPDS ---
Current Diagnoses Other chronic pain (10/15/24) Thoracogenic scoliosis, thoracolumbar region (10/15/24) Spinal instabilities, lumbar region (10/15/24) Low back pain, unspecified (10/15/24) Visit Care Team Role Provider Type YESENIA Ridley Attending Provider Advanced Electronic Engineering Technician Family Provider Primary Care Provider Referring Provider Specialty: Medical Address: [address] [place] [address], [facility] Email: [email or web address] Visit Number Visit Number 8 Discharge Summary PT-OP-A Visit Information Start: 07/31/24 13:41 Freq: Status: Active Protocol: Document 10/15/24 11:33 [facility] (Rec: 10/15/24 12:28 [facility] [id number]) Out-Patient Physical Therapy Visit Information Visit Information Visit Type Progress Note Visit Start Time 11:34 Visit Stop Time 12:16 Visit Number 8 PT-OP-B Current Condition Start: 07/31/24 13:41 Freq: Status: Active Protocol: Document 08/01/24 10:45 [facility] (Rec: 08/01/24 11:33 [facility] [id number]) Current Condition History of Current Condition History of Current pt returns to PT with compression fx Condition She notes she drove to [place] at at Johnnie time and on her return is when her symptoms were worse. She had the dog on her lap during this time and the dog weighs about 30 lbs. It is being recommend to go on Iveniti for osteoporosis 2 injections 1 xm per moth but due to side effects she is worried about taking it. Her pain is intermittent now and her scolioss makes it twist and stick a bit and then it unlocs and its okay again pt descrbes L1-2 left lateral compression fx SHe is trying to sit up at her computer but when she gets up she feels as if she collapses a bit and her back feels locked. Pelvic tilts can feel difficult to do. Treatment Goals Patient/Caregiver pt would like to be able to do her UE arm weights Goals without irritating her back she has 8#, 6#, 5#, and 4# weights at home. Current Functional Impairments (Reported) Functional Pain prevents Johanna from sitting more than one hour, Limitations- ADL's lifting heavy items off the floor, sleep is disturbed from pain Functional long car rides increase pain Limitations- Other PT-OP-C Subjective Start: 07/31/24 13:41 Freq: Status: Active Protocol: Document 10/15/24 11:33 [facility] (Rec: 10/15/24 12:28 [facility] [id number]) OP-PT Subjective Patient Comments Patient Comments Johanna notes it is starting to get easier to do her cat cow and she is not experiencing the catching in her back as much as she was. She is getting ready to leave for a cruise to [place] and will try to do as much of her exercises as she can on the boat PT-OP-F Manual Assessment Start: 07/31/24 13:41 Freq: Status: Active Protocol: Document 08/01/24 10:45 [facility] (Rec: 08/06/24 13:43 [facility] [id number]) Manual Assessments Soft Tissue Assessment Soft Tissue Mobility tightness of the lumbar paraspinals, right sided QL Assessment tightness and guarding L>R piriformis, adductor, and iliopsoas tightness PT-OP-J Posture/Palpation/Skin Start: 07/31/24 13:41 Freq: Status: Active Protocol: Document 08/01/24 10:45 [facility] (Rec: 08/06/24 18:56 [facility] [id number]) Palpation Assessment Location L5/S1 Palpation Findings Muscle Guarding,Tenderness Palpation Details muscle guarding of the paraspinals B PT-OP-K Range of Motion Start: 07/31/24 13:41 Freq: Status: Active Protocol: Document 08/01/24 10:45 [facility] (Rec: 08/06/24 18:56 [facility] [id number]) Lumbar Spine Range of Motion Lumbar Spine Active Testing Position Standing Lateral Flexion Left 10 Lateral Flexion 15 Right ROM Limitations Soft Tissue Tightness,Contracture Comments scoliosis with curve to the right pt demonstrates full lumbar flexion rotation and sidebending are guarded and painful PT-OP-M Strength Start: 07/31/24 13:41 Freq: Status: Active Protocol: Document 08/01/24 10:45 [facility] (Rec: 08/06/24 18:59 [facility] [id number]) Trunk Strength Trunk Manual Muscle Testing Flexion 3 Fair Extension 2+ Poor+ Rotation Left 2+ Poor+ Rotation Right 2+ Poor+ Lateral Flexion Left 3 Fair Lateral Flexion 3 Fair Right Core Stabilization Johanna is able to recruit her transverse abdominals but has pain with ASLR B PT-OP-T Assessment and Plan Start: 07/31/24 13:41 Freq: Status: Active Protocol: Document 02/27/25 10:10 [facility] (Rec: 02/27/25 10:11 [facility] [id number]) Physical Therapy Assessment Goals 3 Impairment Johanna has questions regarding her home weight training program and needs guidance on how to proceed with her exercises without causing any irritation to her L1-2 compression fracture Batch Or Continuous Still Operator Goal (LTG) Johanna feels independent with her home weight training program excellent progress LTG Duration 8 weeks 2 Impairment Left >Right sided piriformis, adductor, and iliopsoas tightness and guarding as well as lumbar paraspinal tightness and guarding Short Term Goal (STG Johanna is educated in stretches for her hips and low ) back to help reduce tightness and guarding goal met STG Duration 4 weeks Mcc Goal (LTG) Johanna is independent with a home program for ROM and stretching for the low back and hips excellent progress and we are still making modifications to her HEP as she is able to tolerate more LTG Duration 8 weeks 1 Impairment Low back pain rated 4-8/10 limiting sitting and standing tolerance and limits sleep Batch Or Continuous Still Operator Goal (LTG) Johanna reports a overall reduction in low back pain increasing her sitting and standing tolerance and her ability to sleep without waking due to pain good progress and Johanna is reporting a reduction in pain levels LTG Duration 8 weeks Assessment Summary Assessment Johanna has not been seen in PT since October 15. She was headed out for a cruise in October to [place] and felt as if she was doing well with her home program. At this point she will be discharged from PT Physical Therapy Plan Discharge Physical Therapy Discharge Reasons No Longer Attending PT
== END 2025-03-05 10:09 | disposition home or self-care (01) ==
LOC: PHYS 11:30
PROVIDERS: Family Provider Registered Nurse Diabetes Educator; PCP Registered Nurse Diabetes Educator; Referring Provider Registered Nurse Diabetes Educator; Visit Provider Registered Nurse Diabetes Educator
DX: M54.50 Low back pain, unspecified (principal); G89.29 Other chronic pain; M41.35 Thoracogenic scoliosis, thoracolumbar region; M53.2X6 Spinal instabilities, lumbar region
CPT/HCPCS: 97110; 97140; 97161